=== PATIENT | female | born 1950 | race Caucasian/White ===

== ENCOUNTER 2024-09-14 08:55 | Outpatient (AMB) | payer MEDICARE, SELFPAY ==
--- NOTE | 2024-09-14 09:09 | A.OFFVIS_ITS ---
Vital Signs 3 09/14/24 09:16 Height 5 ft 3 in Weight 300 lb BMI 53.1 BP 175/77 H Blood Pressure Location Rt radial Position Sitting Pulse 58 Pulse Source Pulse Oximeter Pulse Oximetry (%) 95 Oxygen Delivery Method Room Air Intake Visit Reasons: Spondylosis w/o myelopathy or radiculopathy Intake Note: Pain today 5/10 Nurse Examiner Required: No Accompanied by: Self / Same As Patient Allergies Penicillins Allergy (Unknown, Verified 09/14/24 09:14) Unknown HPI HPI Spondylosis w/o myelopathy or radiculopathy: Details: Patient is a very pleasant 74 years old female with prior history of diabetes (A1C=7.5 ), morbid obesity (BMI=53.1), chronic low back pain, CKD stage 4, chronic fatigue and headaches, shortness of breath, JENNIFFER/BiPAP, arthritis, dizziness, presents today for potential lumbar medial branch RFA procedure. Denies any recent trauma, injury, falls. Patient was seen at [facility] and successfully underwent 2 positive diagnostic lumbar medial branch blocks in May and June 2024 with over 80% pain improvement for 24 hours each time. Patient reports functionality, mobility, and sleep have improved with diagnostic injections. Unfortunately she was unable to go forward with RFA procedure through [facility] facility as her BMI was too high per Anesthesiology at their Surgical center. She now presents for consideration of medial branch block RFA under sedation for chronic axial low back pain. Patient completed physical therapy in 05/15/24 with partial and temporary pain improvement. Denies any fever or chills, abdominal or groin pain, weakness, burning or tingling, radicular back pain, foot drop, bladder or bowel dysfunction or saddle anesthesia. Pain is rated at 7/10 with activities and movements and 5/10 with rest or sitting. Patient reports no difficulty with multiple procedures and surgeries under sedation except that she usually wakes with up with headache and nausea. Oswestry Low Back Pain Disability Score=19 (moderate disability) Location: Lower back pain, non-radiating Duration: Chronic pain >5 years Characteristics of symptom or complaint: Aching, sore, dull, heavy, hurting, sore Aggravating or associated factors: Movements, ADLs, ROM, standing, walking, cold weather changes Relieving factors: Sitting, rest, heat, Tylenol, rarely Ibuprofen (mostly avoid due to CKD) Treatment: PT, Chiropractor, [facility] Medical History (Updated 09/15/24 @ 22:38 by JULIO Cavanaugh) Chronic low back pain Severe obesity Diabetes Hypertension Surgical History (Updated 09/14/24 @ 09:28 by Tonia Henderson) Hx of joint replacement Review of Systems Const All systems reviewed & are unremarkable except as noted in HPI and below Denies body aches, Denies chills, Denies daytime sleepiness, Denies difficulty sleeping, Reports fatigue, Denies fever(s), Reports headache(s), Denies malaise, Denies night sweats and Denies weight loss ENT Reports headache(s) Card Denies dyspnea on exertion Resp Denies cough and Denies dyspnea on exertion Musc Reports as per HPI, Reports back pain, Denies myalgias, Reports arthralgias, Denies joint swelling, Reports limited range of motion, Denies numbness, Denies radiating pain into limb, Reports stiffness and Denies tingling Neuro Reports headache(s), Denies numbness and Denies tingling Psych Denies anxiety and Denies depression Endo Reports fatigue Physical Exam Vital Signs: Last Vital Signs Pulse 58 09/14/24 09:16 BP 175/77 H 09/14/24 09:16 Pulse Ox 95 09/14/24 09:16 Oxygen Delivery Method Room Air 09/14/24 09:16 BMI result Body Mass Index 53.1 General: Appears afebrile. Alert and oriented. Mood and affect appropriate. Follows and participates in conversation appropriately. Respiratory effort is unlabored. No cough. Able to transition from sit to stand unassisted. Ambulates with bilaterally normal heel strike and toe off. General: Yes no CVA tenderness Back/Spine/Pelvis Other: Limited thoracolumbar ROM due to pain. Lumbar extension reproduces moderate pain. Flexion is intact and reproduces mild pain. Positive facet loading bilaterally. Demonstrates 5/5 strength of quadriceps bilaterally as well as flexion/dorsiflexion of bilateral feet against resistance. 2+ pedal pulses bilaterally. Straight leg rise with dorsiflexion is negative bilaterally. Diminished patellar and achilles reflexes bilaterally. Limited Lionel?s, Pelvic compression and Stinchfield tests are negative bilaterally. No groin pain with I/E hip rotations. Valsalva maneuver negative. Back: no CVA tenderness Cervical Spine: cervical ROM normal, No Cervical spine scars present and No Cervical spine tenderness Thoracic/Lumbar Spine: thoracic and lumbar spine normal to inspection, No Thoracic/lumbar spine scar(s), Lasegue's sign negative, straight leg raise negative bilaterally, pain with thoraco-lumbar ROM, paraspinal muscle tenderness, No thoracic spinal tenderness and lumbar spinal tenderness (L3-S1) Sacroiliac joints: bilaterally nontender Assessment & Plan Assessment & Plan (1) Chronic low back pain: Code(s): M54.50 - Low back pain, unspecified; G89.29 - Other chronic pain Category: Medical (2) Spondylosis of lumbar region without myelopathy or radiculopathy: Code(s): M47.816 - Spondylosis without myelopathy or radiculopathy, lumbar region Category: Medical Plan Schedule bilateral L3-L4-L5 Medial Branch RFA with sedation and fluoroscopy. Expectations, risks and benefits were reviewed. Patient is aware she will be contacted to schedule this procedure. Most recent A1C=7.5. All questions were answered and the patient is in agreement of plan. Follow-up after injections and sooner as needed. Anticoagulation: Patient is not on anticoagulation Justification for interventional therapy: ? Patient with average pain > 6/10 ? Patient has exhausted conservative therapy, physical therapy, chiropractor therapy, injections, medication ? Bilateral diagnostic lumbar MBB x2 with >80% pain improvement for 24 hours at [facility] Coding Level of Care Code New Pt Level 4 (81989) Complex EM visit Add On G2211 Diagnoses Chronic low back pain M54.50; G89.29 Spondylosis of lumbar region without myelopathy or radiculopathy M47.816
[2024-09-14 09:16] VITALS: BP 175/77; PULSE 58; O2SAT 95; BMI 53.1
== END 2024-09-14 09:47 | disposition home or self-care (01) ==
PROVIDERS: PCP Family Medicine; Visit Provider Nurse Practitioner Family
DX: M54.50 Low back pain, unspecified (principal); G89.29 Other chronic pain; M47.816 Spondylosis without myelopathy or radiculopathy, lumbar region
CPT/HCPCS: 99204; G2211

== ENCOUNTER → 2024-09-14 08:55 | Outpatient (BNVA) | payer MEDICARE, SELFPAY | PROVIDERS: Visit Provider Nurse Practitioner Family | DX: M54.50 Low back pain, unspecified (principal); M47.816 Spondylosis without myelopathy or radiculopathy, lumbar region; E66.01 Morbid (severe) obesity due to excess calories; G89.29 Other chronic pain; Z68.43 Body mass index [BMI] 50.0-59.9, adult | CPT/HCPCS: 99202 ==

== ENCOUNTER 2025-01-08 06:15 | Outpatient (REF) | payer MEDICARE, SELFPAY ==
--- NOTE | ~2025-01-08 | FL_ITS ---
EXAMINATION: FL GUIDANCE ONLY HISTORY: M47.816 - Spondylosis without myelopathy or radiculopathy, lumbar region COMPARISON: None available. TECHNIQUE: Fluoroscopy time: 0.8 minutes. Cumulative Dose: 29.3 mGy. DAP: 0.329 mGym2 Images: 1. FINDINGS: A single fluoroscopic spot film of the lumbar spine demonstrate needles in the regions of the right L3-4, L4-5, and L5-S1 facet joints. FL/FL guidance in treatment room IMPRESSION: Fluoroscopy during procedure. Please see procedure report for additional information. Electronically signed by: Paul Ravi MD 01/08/2025 12:15 PM EDT
--- OUTSIDE RECORDS SUMMARY | 2025-01-08 06:19 | XMS_ITS | Encounter Summary ---
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; Rheumatoid arthritis of multiple sites with negative rheumatoid factor Social History Tobacco Use Types Packs/Day Years Used Date Smoking Tobacco: Former Cigarettes Q uit: 03/15/1989 Smokeless Tobacco: Never Alcohol Use Standard Drinks/Week Comments No 0 (1 standard drink = 0.6 oz pur e alcohol) Sex and Gender Information Value Date Recorded Sex Assigned at Not on file Gender Identity Female 03/13/2020 8:50 PM EDT Sexual Orientation Not on file documented as of this encounter Plan of Treatment Not on file documented as of this encounter Visit Diagnoses Diagnosis High risk medication use Encounter for long-term (current) use of other medications 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
--- OUTSIDE RECORDS SUMMARY | 2025-01-08 06:19 | XMS_ITS | Encounter Summary ---
Author Organization [facility] [place] [address] Care Team Providers Care Beam Sealer Name Role Phone Benito Saucedo MD Primary Care Provider [phone] Reason for Visit * Reason Onset Date Comments Medication Refill 05/30/2019 Encounter Details Date Type Department Care Team ([facility] st Contact Info) Description 05/30/2019 Refill Rheumatology at [address] [phone] Jose Walters MD [address] [place] [address] [place] [address] Degenerative disc disease, lumbar Social History Tobacco Use Types Packs/Day Years Used Date Smoking Tobacco: Former Cigarettes 1 10 0 03/15/1979 - 03/15/1989 Smokeless Tobacco: Never Alcohol Use Standard Drinks/Week Comments No 0 (1 standard drink = 0.6 oz pur e alcohol) Sex and Gender Information Value Date Recorded Sex Assigned at Not on file Gender Identity Female 03/13/2020 8:50 PM EDT Sexual Orientation Not on file documented as of this encounter Miscellaneous Notes * Telephone Encounter - Sarah Jimenez RN - 05/31/2019 4:43 PM EDT The med is all set but please see her comments about the swelling documented in this encounter Plan of Treatment Not on file documented as of this encounter Visit Diagnoses Diagnosis Degenerative disc disease, lumbar Degeneration of lumbar or lumbosacral intervertebral disc documented in this encounter Care Teams Beam Sealer Relationship Specialty Start Date End Date Benito Saucedo MD [address] [place] [address] PCP - General 03/14/20 documented as of this encounter
--- OUTSIDE RECORDS SUMMARY | 2025-01-08 06:19 | XMS_ITS | Clinical Summary ---
Author Organization [facility] Address [address] [place] [address] Care Team Providers Care Assault Amphibious Vehicle Officer Name Role Phone Unavailable Primary Care Provider Unavailabl e Social History Tobacco Use Types Packs/Day Years Used Date Smoking Tobacco: Never Assessed Sex and Gender Information Value Date Recorded Sex Assigned at Not on file Gender Identity Not on file Sexual Orientation Not on file Plan of Treatment Health Maintenance Due Date Last Done Comments Hepatitis C Virus Screening 1950 DTaP/Tdap/Td Vaccines (1 - Tdap) 02/26/1971 Mammogram 1992 Colonoscopy 02/26/1997 Pneumococcal Vaccines 50+ (1 of 1 - PCV) 02/26/2002 Zoster (Shingles) Vaccine (1 of 2) 02/26/2002 DXA Bone Density (Females,Ag es 65 and older) 02/26/2017 Influenza Vaccine 04/26/2024 COVID-19 Vaccine ( - 2023-2 5 season) 2024 RSV Vaccine 60 years and old er and Patients (1 - 1-dose 75+ series) 02/26/2027 Hepatitis B Vaccines Aged Out No long er eligible based on patient's age to complete this topic
--- OUTSIDE RECORDS SUMMARY | 2025-01-08 06:19 | XMS_ITS ---
Author Name [facility] Organization Unknown Encounters Encounter Type Encounter Reason Primary Diagnosis Location Date Ambulatory hyperkalemia [facility] 08/27/2021 Care Team Organization Name Specialty Phone Email Start Date End [facility] [employer] 08/29/2021 05/14/2024 [facility] [employer] 08/27/2021 08/27/2021
--- OUTSIDE RECORDS SUMMARY | 2025-01-08 06:19 | XMS_ITS | Clinical Summary ---
[place] [address] Care Team Providers Care Field Map Technician Name Role Phone Benito Saucedo MD Primary Care Provider [phone] Allergies Active Allergy Reactions Criticality Noted Date Comments Dominguez Inhibitors 02/13/2015 Other reaction(s): Cough Chromium 07/14/2021 Citalopram 07/14/2021 QT prolongation Copper 02/13/2015 Other reaction(s): Unknown Allergy tested positive Gold Au 198 02/13/2015 Other reaction(s): Unknown Allergy tested positive Gold Keratinate Other (See Comments) 02/13/2015 Allergy tested positive Penicillins Other (See Comments) 03/27/2014 Other reaction(s): Unknown Allergy tested positive Other reaction(s): other HAD A ALLERGY TEST AND WAS POSITIVE FOR PCN - UNKNOWN REACTION Medications Medication Sig Dispensed Refills Start Date End Date Status nystatin (MYCOSTATIN) CreamIndications:Fun gal infection Apply topically 2 times daily. 30 g 3 06/22/2018 Active ketoconazole (NIZORAL) 2 % Cream Apply topically daily. Apply to the affected area twice daily. 30 g 2 11/29/2018 Active pantoprazole (PROTONIX) 40 mg Tablet, Delayed Release (E.C.) Take 1 tablet by mouth daily. 90 tablet 3 04/17/2019 Active torsemide (Demadex) 20 mg Tablet Take 20 mg by mouth every other day. Active hydrALAZINE (Apresoline) 25 mg Tablet Take 25 mg by mouth 3 times daily. Active Saccharomyces boulardii (FLORASTOR) 250 mg Capsule Take 250 mg by mouth. Active allopurinoL (Zyloprim) 100 mg TabletIndications:Hi gh risk medication use,Acute gout due to renal impairment involving left foot,Rheumatoid arthritis of multiple sites with negative rheumatoid factor TAKE 2 TABLETS EVERY DAY 60 tablet 06/29/2021 Active Additional Information Patient taking differently: 100 mg Oral DAILY, Reported on 10/27/2022 augmented betamethasone dipropionate (Diprolene-AF) 0.05 % CreamIndications:Davonte ous stasis dermatitis of both lower extremities apply twice a day to affected areas of the legs for 2 weeks 150 g 1 07/09/2021 Active levothyroxine (Synthroid) 100 mcg Tablet Take 100 mcg by mouth daily. 10/26/2021 Active leflunomide (Arava) 20 mg Tablet 09/30/2021 Active NovoLOG Flexpen U-100 Insulin 100 unit/mL (3 mL) Insulin Pen 11/24/2021 Active gabapentin (Neurontin) 300 mg Capsule Take 300 mg by mouth 3 times daily. 12/08/2021 Active carvediloL (Coreg) 25 mg Tablet Take 25 mg by mouth 2 times daily (with meals). 10/15/2021 Active amLODIPine (Norvasc) 10 mg Tablet Take 10 mg by mouth daily. 11/02/2021 Active meclizine (Antivert) 25 mg tablet 07/20/2022 Active butalbital-acetamino lcjo-evzxnwcu-khlpjg e (Fioricet with Codeine) 18-476-66-30 mg capsule 09/21/2022 Active azithromycin (Zithromax) 500 mg tablet Take 500 mg by mouth as needed (for dental procedures). 09/21/2022 Active triamcinolone (Kenalog) 0.1 % CreamIndications:Ast eatotic eczema Apply to affected areas twice daily for two weeks, then take one week off and repeat as needed 453.6 g 3 12/26/2023 Active Insulin Tresiba FlexTouch U-100 100 unit/mL (3 mL) Insulin Pen See Instructions, 66u daily - replacing lantus, # 60 mL, 3 Refills, Maintenance, 12/23/23 9:40:00 EDT, [facility], Partial fill upon patient request if the prescription is for a schedule II opioid drug., 158, cm, 12/12/23 16:35:... 12/23/2023 Active cholecalciferoL (Vitamin D3) 1,000 unit tablet Take 1,000 Units by mouth daily. Active Active Problems Patient Care Coordination No te Formatting of this note migh t be different from the original. Acute pain contract Jake 05/25/2019 TFD Problem Noted Date Diagnosed Date Congestive heart failure 08/09/2022 Hypothyroidism 08/09/2022 Venous stasis dermatitis 08/09/2022 Chronic back pain 12/31/2021 Depressive disorder 12/31/2021 Chronic kidney disease, stage 4 (severe) 022 Osteoporosis 10/14/2021 Stage 3b chronic kidney disease 10/14/2021 Secondary hyperparathyroidism of renal origin Acute gout due to renal impairment 12/29/2019 Assessment & Plan (08/24/2020 10:25 AM EST): Increase allopurinol to 1 mg/day we will check uric acid and DMARD 1 panel in 4 weeks. Assessment & Plan (05/23/2020 10:41 AM EDT): Patient presents today with stable disease activity, uric acid level is slightly improved from previous values on current dose of allopurinol. We discussed and reviewed her most recent labs which were stable. Inflammatory markers continue to be elevated. Kidney functions are improved from previous value and uric acid is 10.5mg/dL. Goal uric acid is less than 6.0mg/dL. Plan to increase allopurinol to 100 mg daily. We will repeat blood work in 2 weeks. At that time pending those results we will hopefully be able to decrease prednisone to 7.5 mg daily and increase allopurinol by 50mg as per guidelines. Tracy verbalizes understanding and agrees with this plan of care. Plan for follow-up in [address] Walters or sooner if needed. Plan of care was discussed with colleague, Dr. Walters. Assessment & Plan (05/07/2020 8:31 AM EDT): His activity is worse, active and unstable. Requires treatment. Requires urate lowering therapy. At this point gout guidelines support the use of allopurinol. She can use allopurinol even at the creatinine of 1.8. Restart allopurinol 50 mg/day. Maintain prednisone at 7.5 mg/day. We will decrease his dose from 10 mg. We will also recheck labs in 2 weeks time: Uric acid, CBC, AST, ALT, creatinine. Goal uric acid is less than 6.0 mg/dL. With the new guidelines there is ability to use allopurinol even in renal failure. This can be used safely and effectively. I would maintain the combination of both. She needs prophylaxis as well. Assessment & Plan (12/29/2019 11:09 AM EDT): Will start low dose prednisone 5mg per day. Only option for prophylaxis. Start allopurinol after 3 days. 50mg daily. Will increase slowly to goal uric acid of 6.0mg/dL or less. Type 2 diabetes mellitus 10/23/2019 Hypertension 10/23/2019 Vitamin D deficiency 10/23/2019 Injury of kidney 10/12/2019 Chronic diastolic congestive heart failure 10/09 Overview (12/31/2021): See [facility] discharge notes from 10/05/19. Skin rash 08/07/2019 Assessment & Plan (08/07/2019 3:23 PM EST): I wonder whether this is more psoriasis versus an eczema. 2 different rashes one on the lower extremities one in the abdomen and the thighs. Set up for trial of corticosteroid topical and will set up for the venous ultrasound. Other spondylosis with radiculopathy, lumbar reg ion 06/27/2019 Degenerative disc disease, lumbar 05/25/2019 Assessment & Plan (05/25/2019 1:52 PM EDT): I do think at this point we need to evaluate the lumbar spine as well. There is clearly tenderness and pain and this will determine whether there is an inflammatory component to the hip and/or if this is really referred pain. Candidal intertrigo 10/09/2018 Assessment & Plan (11/27/2018 8:09 AM EST): I would try some Diflucan 150 mg once weekly for 4 weeks. This may give some ultimate relief. Side effects reviewed with the patient. Can continue topical treatments. Strep throat 08/24/2018 Assessment & Plan (08/24/2018 10:00 AM EST): Patient has been dealing with strep throat. She had at least 2 bouts over the last 6 months. She continues to have a sore throat. There is no exudate or erythema appreciated on exam although she does have some slightly swollen glands in the submandibular area. She was advised to follow-up with her primary care physician or urgent care regarding this. Edema of lower extremity 08/24/2018 Assessment & Plan (05/23/2020 10:34 AM EDT): Continues to have bilateral lower extremity edema, left greater than the right. No evidence of infection or cellulitis at this time. We did discuss signs and symptoms of infection patient verbalized understanding. Recommended short periods of activity to help with circulation. Per patient visiting nurses had difficult time obtaining pedal pulses, pulses were +2 bilaterally. Assessment & Plan (08/07/2019 3:23 PM EST): We will set up for a lower extremity venous ultrasound. I do know that she had edema which was worsened by Orencia. Ultimately, I need to make sure that there is not a different reason for this or a way that he can be treated. Would consider lymphedema clinic. Lets see what the ultrasound shows first. Does have venous insufficiency rash. Assessment & Plan (04/17/2019 11:39 AM EDT): Set up for Lasix to see if we can diurese initially. This hopefully will help and then we can move forward with seeing any edema improved while being off the Orencia. Assessment & Plan (08/24/2018 10:01 AM EST): 2-3+ bilateral lower extremity edema, pitting. She is advised to follow-up with primary care in regards to this. She is advised on good fluid intake and reducing salt intake as well. Fungal infection 06/22/2018 Assessment & Plan (08/24/2018 9:58 AM EST): Significantly improved. Assessment & Plan (06/22/2018 3:11 PM EDT): Fungal infection under pannus. Discussed nystatin cream twice per day. Use dry coffee filters between skin layers to reduce moisture. Send us a message in 1 week to let us know how you are doing. Excessive cerumen in both ear canals 06/22/2018 Assessment & Plan (06/22/2018 3:12 PM EDT): Warm water irrigations commended. If that does not help please call the office for further irrigation. Drug-induced diarrhea 04/25/2018 Other fatigue 04/25/2018 Overview (04/25/2018): Medication related from methotrexate Assessment & Plan (08/24/2018 10:01 AM EST): Likely worsened by the use of methotrexate. We will add leucovorin to her regimen to see if this helps combat the fatigue. She is advised to stay active as this may help as well. She does use her CPAP machine as directed. Assessment & Plan (04/25/2018 11:19 AM EDT): Related to methotrexate. We will increase the medication with folic acid to 2 mg per day and add leucovorin. Acute UTI (urinary tract infection) 04/25/2018 Assessment & Plan (04/25/2018 11:20 AM EDT): In terms of acute cystitis. We will set her up for urine analysis and culture. I will start nitrofurantoin. Will avoid Bactrim due to methotrexate use. The cultures and sensitivities will then determine if we stay on this medicine or Guerline therapy. Encounter for long-term (current) use of NSAIDs 03/03/2018 Assessment & Plan (04/17/2019 11:38 AM EDT): Discussed the side effects again. She is on aspirin. She is on Celebrex. Data really support limiting NSAIDs. She has a peptic ulcer. Fortunately she feels it is in her best interest to continue it and I agree. It is very risky and difficult but I think at this point her joint pain is significant. We have tried an alternative medication. She has not tolerated this. We discussed the risks and benefits. We will add Protonix daily and I think this will help and this is in line with guidelines for people who have difficulty stopping the medication, placed on a PPI especially with aspirin. There is a risk of bleed unfortunately. She is aware of the risks. Assessment & Plan (03/03/2018 3:26 PM EDT): We will switch to Celebrex. She will stop taking ibuprofen and Aleve. I think both of those are why her creatinine are elevated. She was using them in combination. NSAIDs informed consent: Side effect of all NSAIDs were reviewed in detail. The side effects such as increased risk of coronary artery disease and fatal stroke as well as gastric ulcer formation and renal insufficiency have been reviewed in detail. Other side effects include serious skin reactions, excessive bleeding, allergic reaction which can include rapid heartbeat. Other more common side effects include dizziness, drowsiness or lightheadedness. There is not one NSAID that is safer over the others. No literature article as shown which NSAID should be used. Most recent articles stated that diclofenac, celebrex, and naproxen were the most efficacious for arthritis. Ibuprofen was shown in a recent trial to increase bloodpressure for up to 48 hours post ingestion. Patients who have heart disease or prior ulcers or high blood pressure or decreased kidney function will be at risk for adverse outcomes. The risk and benefit ratio must be weighed with each patient individually. High risk medication use 11/07/2017 Overview (09/03/2019): Eye appt updated May 2019 Assessment & Plan (08/07/2019 3:22 PM EST): We will set for labs. So far she needs an eye exam every year as well. Assessment & Plan (04/17/2019 11:37 AM EDT): We will continue hydroxychloroquine and she will need regular eye exam monitoring. We will hold the Orencia for now. Assessment & Plan (11/27/2018 8:10 AM EST): I have reviewed all of the most recent lab results in [facility]. The most recent laboratory results were reviewed with the patient and are in the results section. The labs are overall stable and will continue to be monitored. Labs to be done every 3 months: Hemogram, AST, ALT, Creatinine, If on DMARD monotherapy or biologic combination. Labs from the above can be done every 6 months if on hydroxychloroquine monotherapy or biologic monotherapy. Labs will be done 2-4 weeks after any dosage adjustment on any medication. Quantiferon gold TB test to be done every 2 years while on biologic. The patient has been advised of the toxicities and the risks of the current medications. Close monitoring is required and adherence to the proper lab schedule is mandatory to monitor for these toxicities and to promote patient safety which is of primary concern. The patient understands the need for systematic and frequent lab monitoring for their safety with the current medications or any other further medications. Assessment & Plan (08/24/2018 9:59 AM EST): Overall labs have been stable. We are going to increase her methotrexate due to increased pain in the hands. She also has some synovitis appreciated in her hands as well. We are going to increase to 20 mg weekly. We will check her labs the third week of August to make sure everything is still stable. We will make any necessary adjustments based on our findings and her symptoms. Due to some mouth sores she will continue with a 3 mg of daily folic acid and make sure she is taking leucovorin 8 hours after her last dose of methotrexate. Hopefully this will help. She is still encouraged to continue to stay active and call with any acute issues. Assessment & Plan (06/05/2018 1:02 AM EDT): Overall labs have been stable. Plan will be to continue on this regimen with the exception of the methotrexate, we are going to increase that up to 6 tablets weekly. We will repeat the labs in about 3 weeks. Continue with use of leucovorin. Call with any acute or worsening side effects. Continue to use Celebrex with caution. Take with food. Understand that there are no safe NSAIDs. NSAIDS (aspirin, diclofenac, ibuprofen, indomethacin, meloxicam, Mobic, nabumetone, Relafen, naproxen, Aleve, piroxicam, Feldene, salsalate) Side effects can include but are not limited to palpitations, edema, heartburn, nausea, abdominal pain, diarrhea, constipation, flatulence, rash, sweating, headache, dizziness, lightheadedness, drowsiness, and increased thirst. Severe risks can include up to heart attacks, worsening congestive heart failure, worsening high blood pressure, serious skin reactions, liver and kidney failure, anemias and excessive bleeding and or even . Assessment & Plan (04/25/2018 11:19 AM EDT): She has repeat labs scheduled for 4 weeks. If they are better, will increase methotrexate up to 6 tablets per week. Will see my nurse practitioner in 4 weeks. Assessment & Plan (03/03/2018 3:24 PM EDT): She is already had a baseline chest x-ray without nodules. Labs to be done 4 weeks. DMARD 1. She will continue hydroxychloroquine for now. Assessment & Plan (12/22/2017 10:03 AM EDT): Labs have been stable. She her eye exams are up-to-date. We will continue to monitor regularly and make recommendations based on our findings. Shoulder impingement syndrome, right 09/06/2017 Assessment & Plan (08/24/2018 10:00 AM EST): Discussed icing techniques as well as stretching. Assessment & Plan (12/22/2017 10:04 AM EDT): Patient never did get an order for physical therapy. She is currently doing physical therapy for her back/knee. We will get that order in. She sees a physical therapist in [place]. Assessment & Plan (09/06/2017 9:14 AM EST): Proceed with corticosteroid injection. She was given exercises to start to do. Will then set up for x-ray today. See if this improves overall. Abnormal gallbladder ultrasound 07/11/2017 Abnormal ultrasound of liver 07/11/2017 Fatty liver 07/11/2017 Rheumatoid arthritis 06/28/2017 Assessment & Plan (08/24/2020 10:26 AM EST): We will discuss with her manager retail store to see what my options are in terms of treatment. TNF agents would not be warranted. Rinvoq could be an option because it does not have cardiovascular risk as potential adverse effect. Assessment & Plan (12/06/2019 4:41 PM EDT): At this point she does have active disease and is going be very difficult to decide back treatment options given that she is just recently had hospitalization for heart failure. Ultimately RA medications will be needed. We will first wait to see if she is going to have surgery for pacemaker. Hydroxychloroquine could then be reintroduced. There are several biologic medications and still can be used 1 of which would still be Orencia, other is Tocilizumab. She may also be a candidate for our new medication Upadacitinib (Rinvoq). First we will see how she is doing cardiovascular dooley and I will send this to her manager retail store. If there is a determination for surgery we will obviously hold on those medications. Other options may be that we will have to go with therapy such as conventional DMARDs such as combination methotrexate and hydroxychloroquine. She will require some form of treatment. I would avoid TNF agents because they can exacerbate heart failure. We will see how she does first cardiovascular dooley and can make a decision with her, primary care physician and manager retail store all about best options for treatment. Explained this in detail. Assessment & Plan (08/07/2019 3:22 PM EST): Continue Celebrex and hydroxychloroquine. No other medication options. Assessment & Plan (05/25/2019 1:50 PM EDT): Review of the x-ray of the hip I believe shows more osteoarthritis. She is scheduled for MRI next Tuesday. We will add an MRI of the lumbar spine as well. I think it would give me a better understanding if this is truly a bursitis or is this radiating pain from the hip versus the lumbar spine. She clearly has what I believe is a radicular component. This may also be a problem if there is inflammation. Will do an intramuscular Depo-Medrol injection followed by oral Medrol for a week. Add pain medicine [place] 5/325 1 tablet twice daily as needed for pain. Set up for a muscle relaxant Flexeril 5 mg twice daily. Assessment & Plan (04/17/2019 11:37 AM EDT): Her disease activity is actually better overall. We will continue Plaquenil but will have to stop the Orencia because I think it is causing edema. I will increase her Lasix to 80 mg/day for 5 days and then 40 mg/day for 5 days and then she will go back to her 20 mg/day dosage. Hopefully this may start some diuresis to improve some of the edema. I do think the edema is probably related to the Orencia. Assessment & Plan (12/05/2018 11:52 AM EDT): Overall disease activity worse and were going to stop methotrexate as it really has been worse for her with regards to how she felt. I think also the fact that she has had a synovitis and inflammation, we should proceed with biologic. We discussed use of her Orencia. I think it would be less risky for her in terms of infection, lymphoma and risk of solid malignancy. Orencia (Abatacept) Biologic. Used to treat Rheumatoid arthritis and juvenile idiopathic arthritis. Acute infusion reactions occurring approximately 9% of people. These side effects usually occur during or 1-2 hours after the infusion. These side effects could potentially include dizziness, headache, nausea, flushing, rash and itching, cough, wheezing, chest pain, low blood pressure, high blood pressure or shortness of breath. Following the infusion, other risks could potentially include headache, dizziness, heartburn, rash and back pain. Other serious risks include serious infections, COPD exacerbations, pneumonia, lymphoma. [facility] Biologic agents may include: Etanercept (Enbrel), Adalimumab (Humira), Infliximab (Remicade, Inflectra), Certolizumab (Cimzia, Cimzia lyophillized), Golimumab (Simponi, Simponi Aria), Abatacept (Orencia), Rituximab (Rituxan), Tocilizumab (Actemra), Aprimelast (Otezla), Ustekinumab (Stelara), Secukinumab (Cosentyx). All medications have side effects and these biologic agents are no exception. The more common side effects include: o Injection site reactions o Injection site pain and/or burning o Upper respiratory infections (viral, sinus) o Headache o Fatigue o Nausea and/or Vomiting Biologic medications can decrease the activity of your immune system. Therefore, you may have an increased chance of getting: Serious infections. Some infections could become serious. If you have an infection, even a cold or the flu, tell your provider before starting a biologic medicine. If you develop an infection while on a biologic medication, discontinue the biologic medication until the infection is completely resolved. Cancer. Many drugs that decreased the activity of the immune system can increase the risk of cancer. If you have had cancer, tell your provider before starting the biologic medicine. If you developed cancer while on the biologic medicine, discontinue your biologic until further instructions from your provider. Blood problems. In some patients your body may fail to produce enough of the cells that help your body fight infections or to help you to stop bleeding. If you develop a fever that does not go away, bruise or bleed very easily, discontinue your biologic medication and call your provider. Nervous system disorders. Signs that you could be experiencing a problem affecting your nervous system include: Numbness or tingling throughout your body, problems with your vision, weakness in her arms and/or legs, dizziness, new onset numbness in tingling in any extremity. Cardiovascular problems. Tell your provider if you have ever been treated for heart failure, have any symptoms of heart failure such as worsening lower extremity edema and shortness of breath, or if you are found to have worsening of the condition. If you are noted to have [place] Heart Failure Classification 3 or 4, tell your provider before starting the medication. BEFORE USING ANY BIOLOGIC MEDICATION, TELL YOUR PROVIDER: o If you have any kind of infection. o If you have a history of recurrent infections. o If you have ever had tuberculosis, have been treated for latent tuberculosis, or are in close contact with someone who has or has had tuberculosis. o If you travel frequently outside of the [place]. o If you travel frequently to endemic areas for fungal infections such as histoplasmosis and coccidioidomycosis. o If you have any new numbness or tingling or if you have a disease that affects your nervous system such as multiple sclerosis. o If you have been newly diagnosed or are being treated for congestive heart failure. o If you have been scheduled to have major surgery, minor surgery or planning to have surgery after starting the medication. o If you are , or planning to become and/or breast-feeding while you are on a biologic medication. We recommend using two effective forms of control while on a biologic medication. o If you have any immune system problems. o If you currently have or have had a previously cancer diagnosis. o If you know or suspected that you have HIV or AIDS. o If you know or suspect that you have hepatitis B or C. Your provider will recommend getting a complete blood count, tuberculosis test, HIV test, hepatitis B and C test, baseline chest x-ray and comprehensive metabolic panel prior to starting any of these medications. There is a protocol in place for these medications. Other labs or studies may be needed prior to starting medications. Most insurance companies require a prior authorization for these medicines to be approved. The pharmacy that you will use will be determined based on your insurance. Any copayments will be determined based on your insurance, financial analysis consultant if applicable or pharmacy industry copayment cards if applicable. This prior authorization approval process takes a minimum of 1-2 weeks. These times can vary and we reserve the right to change without notice. There are specific processes and procedures that must be followed in order for these medications to be approved safely. Any procedures for administration of the medication is in place for your safety and must be followed strictly and adherently. Immunizations are recommended for all patients on Biologics. These include annual influenza vaccination, applicable pneumonia vaccination and we recommend prior shingles vaccination before biologic medications are started. This is according to the Center for Disease Control guidelines on immunocompromised patients and biologic medications. DO NOT: o Use a biologic medication if you have had an allergic reaction to it. o Take your biologic medication if you have an infection. o Receive any live virus vaccinations. o Stop your biologic medication without first checking with your provider. o Become unless you have discussed this with your provider because there can be serious consequences to the patient and the unborn fetus. HOW TO USE YOUR BIOLOGIC MEDICATION: o You will receive training from our office about how to administer your injection, which clinic to report to for administration of the medication as well as any alternative injection sites. o You will be instructed to use the medication as prescribed by your provider. Do not miss any doses. If you miss a dose, please contact a provider to see when you take the next dose. o Keep the medication refrigerated until ready for use. o You will be instructed to keep the medicine at room temperature prior to use if this is applicable. o Keep all follow-up appointments. o Continue to follow all scheduled lab monitoring protocols. TO ENSURE TIMELY RECEIPT OF YOUR BIOLOGIC: o If either your insurance company or pharmacy changes, you need to contact the office as soon as possible. o NO specialty pharmacy will deliver the biologic medication without a delivery confirmation. This means that the pharmacy will require to speak to the patient directly before they send the medication to the patient. o If you receiving any patient assistance from any of the pharmacologic companies or from patient assistance, it is the patient? s responsibility to remain current with this company and the foundation board the patient assistance program in order to continue treatment without paying out of pocket. o Your provider has to right to refuse refills to any patient that is not current with any of these policies or has not completed the required blood work or has failed to keep follow-up visits. This is subject to change without notice if deemed necessary for patient safety. Assessment & Plan (11/27/2018 8:10 AM EST): I think at this point she can probably still maintain hydroxychloroquine and methotrexate. Looks like a significant fungal rash. Already being treated also with a antibiotic. Assessment & Plan (08/24/2018 10:00 AM EST): Patient does have some increased discomfort in her hands as well as active synovitis. We are going to increase her methotrexate to 20 mg weekly with 3 mg of daily folic acid. She is encouraged to continue to stay active and we will check her labs shortly after the increase to make sure she is tolerating the medication well. Assessment & Plan (06/05/2018 1:00 AM EDT): Improving symptoms while on methotrexate. Let us go up to 6 tablets per week. This repeat the labs in about 3 weeks to make sure that we are tolerating it well. Continue to stay active. Continue with the leucovorin 8 hours after the last dose of methotrexate. Call with any acute issues. Assessment & Plan (04/25/2018 11:19 AM EDT): Improved control. She did have some mild elevations in her labs including creatinine and a decrease in her hemoglobin and hematocrit. We will need to see how she does with this. We will keep her on methotrexate 4 tablets once weekly. Increase folic acid to 2 mg per day. Add leucovorin once weekly. Hopefully this will help with the GI side effect. Hopefully will help with the fatigue. Assessment & Plan (03/03/2018 3:24 PM EDT): She transition her rheumatoid arthritis. Continue hydroxychloroquine. We discussed starting methotrexate. Start methotrexate 4 tablets once weekly which will be a total of 10 mg once weekly with daily folic acid. Methotrexate (Rheumatrex): Medication is used to treat rheumatoid arthritis, psoriasis, psoriatic arthritis, systemic lupus erythematosus, myositis, connective tissue disease, many other rheumatologic diseases for which it may be off label use. There are black box warnings which include even with appropriate use that for her disabling psoriasis or rheumatoid arthritis or other rheumatic diseases that are not responsive to other treatment, there is been deaths that are reported in these conditions. Closely monitoring of bone marrow, liver, lung and kidney toxicities is important. There are many new studies stating that the concomitant use of NSAIDs for rheumatoid arthritis, certainly antibiotics for short-term use and proton pump inhibitors are able to be used for the low dose methotrexate. This may calm up in your treatment if you are prescribed with these medications by any of your other providers or your mining consultant. Side effects discussed at length to include but not limited to liver function abnormalities, WBC changes, lung fibrosis, oral ulcers, hair loss and flu like syndrome. Acute lung toxicity and acute toxicity causing decreased blood counts and pancytopenia. Risk of lymphoma is increased with jail use. Patient should limit, and preferably, abstain from the use of alcohol. Informed consent was obtained and signed. Patient is urged to read all paperwork that comes with the medication as well as any provided information and is urged to call our office with any questions or concerns. Assessment & Plan (12/22/2017 10:05 AM EDT): No obvious synovitis on exam although body habitus does make it slightly difficult to assess. Patient reports that she is getting good relief with use of hydroxychloroquine and Aleve. Plan at this time will be to continue on these for good relief. Assessment & Plan (09/06/2017 9:13 AM EST): Continue hydroxychloroquine for now. Her bone scan shows degenerative arthritis in the shoulder and in the lumbar spine. We will proceed with x-ray of the right shoulder. Osteoarthritis of knee 05/20/2017 ESR raised 05/20/2017 CRP elevated 05/20/2017 Alkaline phosphatase elevation 05/05/2017 Arthralgia of multiple joints 05/05/2017 Sedimentation rate elevation 03/25/2017 Assessment & Plan (04/25/2018 11:19 AM EDT): I think we will see an improvement in these numbers. She is starting to feel better overall. Assessment & Plan (09/06/2017 9:14 AM EST): The inflammation will improve gradually. Tarsal tunnel syndrome, left 03/09/2017 Obstructive sleep apnea syndrome 08/23/2016 Hyperlipidemia 07/29/2016 Osteoarthrosis 07/22/2016 Assessment & Plan (06/05/2018 1:01 AM EDT): Continue stay active. Maintain healthy weight. Tylenol as previously discussed. Assessment & Plan (12/22/2017 10:02 AM EDT): Pt has arthritis in multiple sites per imaging. She is getting some relief with the use of HCQ and Aleve BID. She continues to have discomfort in her right shoulder and lower back and left knee. She is currently doing PT for her knee. She never started PT for the shoulder. For now, I think we are going to continue on the HCQ and aleve, and incorporate tylenol up to 3000mg per day in divided doses. Her renal function was stable the last time we checked her numbers. Her eye exam is up to date as per the recommendations while she is on hydroxychloroquine. We will continue monitoring labs and put in an order for physical therapy for the shoulder as well. She is advised to continue to try and stay active. Maintaining a healthy weight is also long and would help with some of the joint symptoms as well. Allergy to metal 12/11/2015 Lipoma 06/26/2013 Morbid obesity Arthritis Encounters Date Type Department Care Team Description 12/19/2024 9:40 AM EDT Office Visit [place] [address] Barrett Jay MD Sensorineural hearing loss (SNHL) of both ears; Tympanic membrane perforation, left; Tympanic membrane retraction, right; H/O Meniere's disease 12/19/2024 9:00 AM EDT Office Visit Audiology at [address] [id number] Yeimi Park, PhD Sensorineural hearing loss, bilateral 12/19/2024 Travel 12/18/2024 Travel from Last 3 Months Family History Medical History Relation Comments Diabetes Brother Heart Failure Father Diabetes Maternal Aunt Rheumatoid Arthritis Maternal Grandmother Diabetes Mother Heart Failure Mother Diabetes Other Scoliosis Other Cancer Paternal Grandmother Breast Canc er Cancer Sister Uterine Cancer Relation Status Comments Brother Father Maternal Aunt Maternal Grandmother Mother Other Alive Paternal Grandmother Sister Social History Tobacco Use Types Packs/Day Years Used Date Smoking Tobacco: Former Cigarettes Q uit: 03/15/1989 Smokeless Tobacco: Never Tobacco Cessation:Counseling Given: No Alcohol Use Standard Drinks/Week Comments No 0 (1 standard drink = 0.6 oz pur e alcohol) Sex and Gender Information Value Date Recorded Sex Assigned at Not on file Gender Identity Female 03/13/2020 8:50 PM EDT Sexual Orientation Not on file Last Filed Vital Signs Vital Sign Reading Time Taken Comments Blood Pressure 128/58 03/30/2024 10:28 AM EDT Pulse 57 03/30/2024 10:28 AM EDT Temperature 36.8 ??C (98.2 ??F) 05/22/2020 8:28 PM ED T Respiratory Rate 15 10/19/2019 2:18 PM EST Oxygen Saturation 93% 03/30/2024 10:28 AM EDT Inhaled Oxygen Concentration - - Weight 133.8 kg (295 lb) 12/19/2024 9:41 AM EDT Height 157.5 cm (5' 2 ) 12/19/2024 9:41 AM EDT Body Mass Index 53.96 12/19/2024 9:41 AM EDT Plan of Treatment Health Maintenance Due Date Last Done Comments CT Colonography 1950 FIT DNA 1950 FIT 1950 Sigmoidoscopy 1950 DM Hemoglobin A1c 02/26/1962 DM Opthalmology Exam 02/26/1962 DM Urine Microalbumin yearly 02/26/1962 Hepatitis C Screening 02/26/1970 Lipid Screening 02/26/1970 Pneumoccocal Vaccine: 50+ (1 of 2 - PCV) 02/26/1971 Tetanus/Diphtheria/Pertussis Vaccines (1 - Tdap) 02/26/1971 Breast Cancer Share Decision Needed 1992 Breast Cancer screening 1992 Zoster vaccine (1 of 2) 02/26/2002 RSV Vaccine (1 - Risk 60-74 years 1-dose series) 2012 DM Creatinine yearly 03/20/2022 03/20/2021, 10/19/2019, 10/18/2019, Additional history exists Colonoscopy 03/26/2024 03/26/2019, 03/26/2019 Colorectal Cancer Screening 03/26/2024 Covid-19 Vaccine (6 - 2023-2 5 season) 2024 07/11/2023, 01/21/2022, 07/28/2021, Additional history exists Influenza (Flu) vaccine (1 o f 1 - Influenza standard series) 05/27/2024 Sigmoidoscopy (10 year) with FIT yearly 03/26/2029 03/26/2019, 03/26/2019 Bone Density Scan 02/09/2034 02/09/2019 Diabetes Screening (HgbA1C o r Glucose) Discontinued 10/19/2019, 10/18/2019, 10/17/2019, Additional history exists Procedures Procedure Name Priority Date/Time Associated Diagnosis Comments COMPREHENSIVE HEARING TEST Routine 12/19/2024 9:08 AM EDT HC VENIPUNCTURE Routine 03/20/2021 11:04 AM EDT Asymmetrical sensorineural hearing loss BASIC METABOLIC PANEL Routine 10/19/2019 4:55 AM EST COLONOSCOPY Routine 03/26/2019 6:43 AM EDT DXA CENTRAL SPINE, HIP, AND/OR WHOLE BODY (GENERIC) Routine 02/09/2019 2:22 PM EDT from Last 3 Months or Most Recently Relevant to Health Maintenance Results * Comprehensive hearing test (12/19/2024 9:08 AM EDT) 12/19/2024 9:08 AM EDT Narrative AUDBASE COMP - 12/19/2024 9:08 AM EDT Follow-up with Dr. Jay Audiology services in conjunction with medical management. Procedure Note Unknown - 12/19/2024 Follow-up with Dr. Jay Audiology services in conjunction with medical management. Yeimi Park PhD AUDIOLOGY SERVICES ORDERABLES AUDBASE COMP * (ABNORMAL) Creatinine (03/20/2021 11:04 AM EDT) Creatinine 2.06(H) 0.70 - 1.20 mg/dL [facility] Est Glomerular Filtration Rate 24(L) >=60 mL/min/1. 73 m?? [facility] Comment: This patient? s estimated glomerular filtration rate (eGFR) is between 24 mL/min/1.73 m2 (patients with less muscle mass) and 28 mL/min/1.73 m2 (patients with more muscle mass) as determined by the CKD-EPI equation. Assessment of eGFR is not appropriate when creatinine concentrations are rapidly changing. For clinical decisions where creatinine clearance will affect therapy, a 24-hour urine creatinine clearance may be advised. Assignment of CKD stage 1 - 5 for patients with an eGFR near the transition point between stages may be based on clinical assessment of muscle mass and symptoms in addition to eGFR. Blood 03/20/2021 11:0 4 AM EDT 03/20/2021 11:12 AM EDT Narrative Resulting Agency Comment Spec In Lab Barrett Jay MD CHEMISTRY ORDERABLES Performing Organization Address City/[facility]/ZIP Co de Phone Number [facility] [place] [address] * (ABNORMAL) Basic Metabolic Panel (non-fasting) (10/19/2019 4:55 AM EST) Glucose 169 65 - 199 mg/dL [facility] Comment:Diabetes: >=200 mg/d L plus symptoms Blood Urea Nitrogen 77(H) 8 - 18 mg/dL [facility] Creatinine 2.88(H) 0.70 - 1.20 mg/dL [facility] Sodium 139 135 - 145 mmol/L [facility] Potassium 3.3(L) 3.5 - 5.0 mmol/L [facility] Comment: Please note: ??Patients with WBC >100,000 may have falsely elevated Potassium levels. ??For accurate Potassium quantification in these patients send serum separator tube (gold top) for subsequent determinations. ??Contact the Clinical Chemistry Laboratory if there are any questions. Chloride 90(L) 98 - 107 mmol/L [facility] Carbon Dioxide 30 22 - 31 mmol/L [facility] Anion Gap 19(H) 5 - 15 mmol/L [facility] Calcium 10.2 8.5 - 10.5 mg/dL [facility] Est Glomerular Filtration Rate 16(L) >=60 mL/min/1. 73 m?? [facility] Comment: The eGFR was calculated using the CKD-EPI equation. As with all creatinine based estimates of kidney function, eGFR values calculated with the CKD-EPI equation are not accurate in patients with acute kidney failure, extremes of body mass or the acutely ill. [email or web address] eGFR 19(L) >=60 mL/min/1. 73 m?? [facility] Comment: The eGFR was calculated using the CKD-EPI equation. As with all creatinine based estimates of kidney function, eGFR values calculated with the CKD-EPI equation are not accurate in patients with acute kidney failure, extremes of body mass or the acutely ill. [email or web address] Blood specimen (specimen) 10/19/2019 4:55 AM EST 10/19/2019 5:40 AM EST Narrative Resulting Agency Comment Spec In Lab Dara Carreon MD CHEMISTRY ORDERABLES [facility] [address] [place] [address] * COLONOSCOPY (03/26/2019 6:43 AM EDT) COLONOSCOPY Patient Name: Tiffanie Stern Procedure Date: 03/26/2019 6:43 AM ?Attending MD: Lucho Ohara MD Date of : 1950 ?Order #: [id number] Age: 69 ?Instrument Name: [id number] Procedure: ? Colonoscopy Indications: ? Iron deficiency anemia Providers: ? Lucho Ohara MD, [place] ? Ama Krishna MD: ? Medicines: ? Monitored Anesthesia Care Complications: ? No immediate complications. Procedure: ? Pre-Anesthesia Assessment: ? - Prior to the procedure, a History ? and Physical was performed, and ? patient medications, allergies and ? sensitivities were reviewed. The ? patient's tolerance of previous ? anesthesia was reviewed. ? The procedure, indications, benefits, ? risks and alternatives were explained ? to the patient. Specifically ? discussed were potential ? complications including, but not ? limited to, bleeding, perforation, ? infection, missing a cancer, and ? adverse medication reactions. The ? patient was placed in the left ? lateral decubitus position, and a ? digital rectal exam was performed. ? The Colonoscope was inserted in the ? anus and under direct visualization, ? advanced to the cecum, identified by ? appendiceal orifice and ileocecal ? valve. Careful inspection was made as ? the colonoscope was withdrawn. The ? colonoscopy was performed without ? difficulty. The patient tolerated the ? procedure well. The quality of the ? bowel preparation was good. ? Scope Withdrawal Time: 0 hours 10 minutes 20 seconds Findings: ? The perianal and digital rectal examinations were ? normal. ? Two sessile polyps were found in the transverse ? colon. The polyps were 2 to 3 mm in size. These ? polyps were removed with a cold biopsy forceps. ? Resection and retrieval were complete. ? Multiple small-mouthed diverticula were found in the ? entire colon. ? Internal hemorrhoids were found during retroflexion. ? The hemorrhoids were small. ? The exam was otherwise without abnormality. ? Impression: ?- Two 2 to 3 mm polyps in the ? transverse colon, removed with a cold ? biopsy forceps. Resected and ? retrieved. ? - Diverticulosis in the entire ? examined colon. ? - Internal hemorrhoids. ? - The examination was otherwise ? normal. Recommendation: ?- Discharge patient to home. ? - High fiber diet. ? - Continue present medications. ? - Await pathology results. ? - Repeat colonoscopy in 5 years for ? surveillance based on pathology ? results. ? Procedure Code(s): ?? --- Professional --- ? 25950, Colonoscopy, flexible; with ? biopsy, single or multiple Diagnosis Code(s): ?? --- Professional --- ? D12.3, Benign neoplasm of transverse ? colon (hepatic flexure or splenic ? flexure) ? K64.8, Other hemorrhoids ? D50.9, Iron deficiency anemia, ? unspecified ? K57.30, Diverticulosis of large ? intestine without perforation or ? abscess without bleeding ? --- Technical --- ? D12.3, Benign neoplasm of transverse ? colon (hepatic flexure or splenic ? flexure) ? K64.8, Other hemorrhoids ? D50.9, Iron deficiency anemia, ? unspecified ? K57.30, Diverticulosis of large ? intestine without perforation or ? abscess without bleeding CPT copyright 2017 [employer]. All rights reserved. The codes documented in this report are preliminary and upon mobile ui developer review may be revised to meet current compliance requirements. Lucho Ohara MD ___ Lucho Ohara MD 03/26/2019 8:13:36 AM This report has been signed electronically. Number of Addenda: 0 PROVATION 03/26/2019 6:43 AM EDT Unknown GENERAL SURGICAL ORD ERABLES PROVATION * DXA Central-Spine, Hip, And/Or Whole Body (Generic) (02/09/2019 2:22 PM EDT) Anatomical Region Laterality Modality C-spine, Hip N/A Radiographic Michelle ging 02/09/2019 2:22 PM EDT Impressions 02/09/2019 2:37 PM EDT Minimal osteoporosis category as measured at the left hip femoral neck, normal bone mineral density measurements elsewhere in the left hip and lumbar spine. Compared to 12/22/2006, the total left hip bone mineral density has increased by 3.3%. The lumbar spine bone mineral density has decreased by 0.8%. The ten year fracture probability by FRAX is 0.8% for hip fractures and 8.9% for all major osteoporotic fractures. NOTE: FRAX calculations are typically made for untreated postmenopausal women or men, age 50 or older, with T-score between -1.0 and -2.5, with no past fractures of lumbar spine or hip. We are providing this calculation for all patients for your use with the proviso that it be considered in conjunction with the patient's total clinical situation, including patient preferences, comorbidities, present and past drug use, and risk factors that may not be captured by the FRAX model (e.g., without exclusion, frailty, frequent falls, vitamin D deficiency, increased bone turnover, and rapidity of change in bone density). National Osteoporosis Foundation recommends FDA-approved medical therapies be considered in postmenopausal women and men, age 50 years or greater, with: (1) a history of hip OR vertebral fracture, (2) T-score of -2.5 (or less) at the spine OR total hip, or (3) ten year fracture probability by FRAX of 3% (or more) for hip fractures OR 20% (or more) for major osteoporotic fractures. Thank you for letting us participate in the care of this patient. For questions regarding this report, please contact the number below. ? Narrative 02/09/2019 2:37 PM EDT EXAMINATION: BD Procedure (DEXA) CLINICAL HISTORY: screening for osteoporosis;Z13.820 Encounter for screening for osteoporosis TECHNIQUE: Scans were acquired at the lumbar spine, left hip. COMPARISON: 12/22/2006 FINDINGS: COMPARISON: 12/22/2006 DISCUSSION: Bone density scanning of the left hip and lumbar spine was performed with the [employer] Discovery C DEXA Scanner. At the left hip the total bone mineral density is 1.158 g/sq cm with the T-score of 1.8. For purposes of FRAX calculation only, at the left femoral neck the bone mineral density is 0.730 g/sq cm with the T-score of -1.1. In the lumbar spine at L1 through L4 the total bone mineral density is 1.049 g/sq cm. The T-score is 0.0. Procedure Note Chun Vergara MD - 02/09/2019 EXAMINATION: BD Procedure (DEXA) CLINICAL HISTORY: screening for osteoporosis;Z13.820 Encounter forscreening for osteoporosis TECHNIQUE: Scans were acquired at the lumbar spine, left hip. COMPARISON: 12/22/2006 FINDINGS: COMPARISON: 12/22/2006 DISCUSSION: Bone density scanning of the left hip and lumbar spine wasperformed with the [employer] Discovery C DEXA Scanner. At the left hip the totalbone mineral density is 1.158 g/sq cm with the T-score of 1.8. For purposes ofFRAX calculation only, at the left femoral neck the bone mineral density is0.730 g/sq cm with the T-score of -1.1. In the lumbar spine at L1 through L4 thetotal bone mineral density is 1.049 g/sq cm. The T-score is 0.0. IMPRESSION Minimal osteoporosis category as measured at the left hip femoral neck, normal bone mineral density measurements elsewhere in the left hipand lumbar spine. Compared to 12/22/2006, the total left hip bone mineral density hasincreased by 3.3%. The lumbar spine bone mineral density has decreased by 0.8%. The ten year fracture probability by FRAX is 0.8% for hip fractures and8.9% for all major osteoporotic fractures. NOTE: FRAX calculations are typically made for untreated postmenopausalwomen or men, age 50 or older, with T-score between -1.0 and -2.5, with no pastfractures of lumbar spine or hip. We are providing this calculation for all patientsfor your use with the proviso that it be considered in conjunction with the patient's total clinical situation, including patient preferences, comorbidities, present and past drug use, and risk factors that may notbe captured by the FRAX model (e.g., without exclusion, frailty, frequentfalls, vitamin D deficiency, increased bone turnover, and rapidity of change inbone density). National Osteoporosis Foundation recommends FDA-approved medical therapiesbe considered in postmenopausal women and men, age 50 years or greater, with:(1) a history of hip OR vertebral fracture, (2) T-score of -2.5 (or less) at thespine OR total hip, or (3) ten year fracture probability by FRAX of 3% (or more)for hip fractures OR 20% (or more) for major osteoporotic fractures. Thank you for letting us participate in the care of this patient. Forquestions regarding this report, please contact the number below. Neto [place] DEXA ORDERABLE S from Last 3 Months or Most Recently Relevant to Health Maintenance Advance Directives Documents on File Type Date Recorded Patient Gamma Operator Expl anation Advance Directives and Livin g Will 11/24/2010 4:05 PM * Full Code (Latest Code Status on File) Date Activated Date Inactivated Comments 10/12/2019 4:08 PM 10/19/2019 5:45 PM Question Answer Comments Does patient have capacity to make decision: Yes Care Teams Field Map Technician Relationship Specialty Start Date End Date Benito Saucedo MD [address] [place] [id number] PCP - General 03/14/20
--- OUTSIDE RECORDS SUMMARY | 2025-01-08 06:19 | XMS_ITS | Encounter Summary ---
Author Organization [facility], Address [address] [place] [address] Phone Care Team Providers Care Lockstitch Lining Maker Name Role Phone Benito Saucedo MD Primary Care Provider [phone] Encounter Details Date Type Department Care Team (Late st Contact Info) Description 11/28/2024 Orders Only [facility] [address] [place] [phone] Garima Rodriguez, [address] [place] [address] Stage 3b chronic kidney disease (HCC); Type 2 diabetes mellitus with diabetic chronic kidney disease (HCC) Social History Tobacco Use Types Packs/Day Years Used Date Smoking Tobacco: Never Smokeless Tobacco: Never Alcohol Use Standard Drinks/Week Comments Not Currently 0 (1 standard drink = 0.6 oz pur e alcohol) Comments Unknown Sex and Gender Information Value Date Recorded Sex Assigned at Not on file Legal Sex Female 4:33 PM EST Gender Identity Not on file Sexual Orientation Not on file documented as of this encounter Plan of Treatment Upcoming Encounters Date Type Department Care Team (Late st Contact Info) Description 06/13/2025 12:00 PM EDT Office Visit [facility] [address] [place] [phone] RodriguezGarima, DO [address] [facility] [place] [address] documented as of this encounter Procedures Procedure Name Priority Date/Time Associated Diagnosis Comments URINE ALBUMIN / CREATININE RATIO Routine 12/10/2024 9:44 AM EDT Stage 3b chronic kidney disease (HCC) Type 2 diabetes mellitus with diabetic chronic kidney disease (HCC) VITAMIN D 25 HYDROXY Routine 12/10/2024 9:44 AM EDT Stage 3b chronic kidney disease (HCC) CBC Routine 12/10/2024 9:44 AM EDT Stage 3b chronic kidney disease (HCC) PTH, INTACT Routine 12/10/2024 9:44 AM EDT Stage 3b chronic kidney disease (HCC) RENAL FUNCTION PANEL Routine 12/10/2024 9:44 AM EDT Stage 3b chronic kidney disease (HCC) documented in this encounter Results * (ABNORMAL) Renal function panel (12/10/2024 9:44 AM EDT) Glucose 171(H) 70 - 99 mg/dL [facility] BUN 25 8 - 27 mg/dL [facility] Creatinine 1.62(H) 0.57 - 1.00 mg/dL [facility] eGFR CKD-EPI CR 2020 34(L) >59 mL/min/1.7 3 [facility] BUN/Creatinine Ratio 15 12 - 28 [facility] Sodium 145(H) 134 - 144 mmol/L [facility] Potassium 3.8 3.5 - 5.2 mmol/L [facility] Chloride 105 96 - 106 mmol/L [facility] Bicarbonate (CO2) 21 20 - 29 mmol/L [facility] Calcium 9.1 8.7 - 10.3 mg/dL [facility] Albumin 3.9 3.8 - 4.8 g/dL [facility] Phosphorus 2.7(L) 3.0 - 4.3 mg/dL [facility] Blood (Blood, Venous) 12/10/2024 9:44 AM EDT 12/10/2024 us Garima Rodriguez DO LAB BLOOD ORDERABLES Final Re sult [facility] [address] [place] [address] * Vitamin D 25 hydroxy (12/10/2024 9:44 AM EDT) Vitamin D, 25-OH, Total 33.4 30.0 - 100.0 ng/mL [facility] Comment: Vitamin D deficiency has been defined by the [place] of Medicine and an Endocrine Society practice guideline as a level of serum 25-OH vitamin D less than 20 ng/mL (1,2). The Endocrine Society went on to further define vitamin D insufficiency as a level between 21 and 29 ng/mL (2). 1. IOM ([place] of Medicine). 2010. Dietary reference ?? intakes for calcium and D. [place]: The ?? National AcademOutbox Press. 2. Santiago MF, Donovan [place], Arik CARIAS, et al. ?? Evaluation, treatment, and prevention of vitamin D ?? deficiency: an Endocrine Society clinical practice ?? guideline. JCEM. 2011 Mar; 96(7):1911-30. Blood (Blood, Venous) 12/10/2024 9:44 AM EDT 12/10/2024 us Garima Rodriguez DO LAB BLOOD ORDERABLES Final Re sult Performing Organization Address [facility] de Phone Number [facility] [address] [place] [address] * Urine Albumin / Creatinine Ratio (12/10/2024 9:44 AM EDT) Creatinine, Ur 129.9 Not Estab. mg/dL [facility] Albumin, Urine 15.9 Not Estab. ug/mL [facility] Albumin/Creatin ine Ratio 12 0 - 29 mg/g creat [facility] Comment: ? Normal: ?0 - ??29 ? Moderately increased: 30 - 300 ? Severely increased: ? >300 Urine (Urine, Clean Catch) 12/10/2024 9:44 AM EDT 12/10/2024 us Garima Rodriguez DO LAB URINE ORDERABLES Final Re sult Performing Organization Address [facility] de Phone Number [facility] [address] [place] [address] * (ABNORMAL) PTH, intact (12/10/2024 9:44 AM EDT) PTH 210(H) 15 - 65 pg/mL [facility] Blood (Blood, Venous) 12/10/2024 9:44 AM EDT 12/10/2024 us Garima Rodriguez DO LAB BLOOD ORDERABLES Final Re sult Performing Organization Address [facility] de Phone Number [facility] [address] [place] [address] * CBC (12/10/2024 9:44 AM EDT) WBC 8.1 3.4 - 10.8 x10E3/uL [facility] RBC 4.50 3.77 - 5.28 x10E6/uL [facility] Hemoglobin 13.4 11.1 - 15.9 g/dL [facility] Hematocrit 39.9 34.0 - 46.6 % [facility] MCV 89 79 - 97 fL [facility] MCH 29.8 26.6 - 33.0 pg [facility] MCHC 33.6 31.5 - 35.7 g/dL [facility] RDW 13.8 11.7 - 15.4 % [facility] Platelets 230 150 - 450 x10E3/uL [facility] Blood (Blood, Venous) 12/10/2024 9:44 AM EDT 12/10/2024 us Garima Rodriguez DO LAB BLOOD ORDERABLES Final Re sult [facility] [address] [place] [address] documented in this encounter Visit Diagnoses Diagnosis Stage 3b chronic kidney disease (HCC) Type 2 diabetes mellitus with diabetic chronic kidney disease (HCC) documented in this encounter Care Teams Lockstitch Lining Maker Relationship Specialty Start Date End Date Benito Saucedo MD [address] [place] [id number] PCP - General Family Medicine 11/18/20 documented as of this encounter
--- OUTSIDE RECORDS SUMMARY | 2025-01-08 06:19 | XMS_ITS | Encounter Summary ---
Author Organization [facility] [address] Care Team Providers Care Starting Sheet Tank Operator Name Role Phone Benito Saucedo MD Primary Care Provider [phone] Reason for Visit * Reason Onset Date Comments Medication Refill 06/12/2019 Encounter Details Date Type Department Care Team ([facility] st Contact Info) Description 06/12/2019 Refill Rheumatology at [address] [phone] Jose Walters MD [address] [place] [address] [place] [address] Degenerative disc disease, lumbar Social History Tobacco [...] disc documented in this encounter Care Teams Starting Sheet Tank Operator Relationship Specialty Start Date End Date Benito Saucedo MD [address] [place] [phone] PCP - General 03/14/20 documented as of this encounter
--- OUTSIDE RECORDS SUMMARY | 2025-01-08 06:19 | XMS_ITS | Encounter Summary ---
Author Organization [facility], Address [address] [place] [address] Phone Care Team Providers Care Associate Business Analyst Name Role Phone Benito Saucedo MD Primary Care Provider [phone] Encounter Details Date Type Department Care Team (Late st Contact Info) Description 12/09/2023 Documentation Only [facility] [place], [address] [place] [address] Holly Stone [address] [place] [address] Social History Tobacco Use Types Packs/Day Years [...] Visit [facility] [place] [facility] [place] [address] [facility] [address] [place] [address] Garima Rodriguez DO [address] [place] [address] documented as of this encounter Visit Diagnoses Not on filedocumented in this encounter Care Teams Associate Business Analyst Relationship Specialty Start Date End Date Benito Saucedo MD [address] [place] [phone] PCP - General Family Medicine 11/18/20 documented as of this encounter
== END 2025-01-08 06:16 | disposition home or self-care (01) ==
LOC: CF 06:15
PROVIDERS: Visit Provider Anesthesiology
DX: M47.816 Spondylosis without myelopathy or radiculopathy, lumbar region (principal)
CPT/HCPCS: 64635; 64636; J2003; J2795; J3301

== ENCOUNTER 2025-01-08 07:54 | Outpatient (AMB) | payer MEDICARE, SELFPAY ==
--- OUTSIDE RECORDS SUMMARY | 2025-01-08 07:58 | XMS_ITS | Encounter Summary ---
Author Organization [facility], Address [address] [place] [address] Phone Care Team Providers Care Director Of Business Services Name Role Phone Benito Saucedo MD Primary Care Provider [phone] Encounter Details Date Type Department Care Team (Late st Contact Info) Description 12/09/2023 Documentation Only [facility] [place], [address] [place] [address] Holly Stone [address] [place] [address] Social History Tobacco Use Types [...] Visit [facility] [place] [facility] [place] [address] [facility] [address] [place] [address] Garima Rodriguez DO [address] [place] [address] documented as of this encounter Visit Diagnoses Not on filedocumented in this encounter Care Teams Director Of Business Services Relationship Specialty Start Date End Date Benito Saucedo MD [address] [place] [phone] PCP - General Family Medicine 11/18/20 documented as of this encounter
--- OUTSIDE RECORDS SUMMARY | 2025-01-08 07:58 | XMS_ITS | Clinical Summary ---
Author Organization [facility] Address [address] [facility] [address] [place] [address] Phone Care Team Providers Care Hoop Flaring Machine Operator Helper Name Role Phone Benito Saucedo MD Primary Care Provider [phone] Allergies Active Allergy Reactions Criticality Noted Date Comments Dominguez Inhibitors Other (see comments) 02/13/2015 Other reaction(s): Cough cough Beta Adrenergic Blockers High 06/06/2023 SYMPTOMATIC BRADYCARDIA Chromium 07/14/2021 Citalopram 07/14/2021 QT prolongation Copper Other (see comments) 02/13/2015 Allergy tested positive Other reaction(s): Unknown Allergy tested positive Gold Other (see comments) 02/13/2015 Allergy tested positive Other reaction(s): Unknown Allergy tested positive Allergy tested positive Empagliflozin Other (see comments) 12/13/2023 Causes BRIANNE Losartan Other (see comments) High 06/06/2023 Severe cough with both DOMINGUEZ and ARB Penicillins Other (see comments) 03/27/2014 Allergy tested positive Other reaction(s): Unknown Allergy tested positive Other reaction(s): other HAD A ALLERGY TEST AND WAS POSITIVE FOR PCN - UNKNOWN REACTION Medications amLODIPine (NORVASC) 10 MG tablet Take 5 mg by mouth 1 (one) time each day Active meclizine (ANTIVERT) 12.5 MG tablet Take 1 tablet by mouth 3 (three) times a day if needed Active allopurinol (ZYLOPRIM) 100 MG tablet Take 200 mg by mouth 1 (one) time each day Active butalbital-acet aminophen-caffe ine (FIORICET, ESGIC) 50-325-40 MG per tablet take 1 tablet by mouth for ONSET HEADACHE- MAY REPEAT ONCE. DO N... (REFER TO PRESCRIPTION NOTES). 8 Active nystatin (MYCOSTATIN) cream Apply topically 8 Active gabapentin (NEURONTIN) 600 MG tablet Take 300 mg by mouth in the morning and 300 mg in the evening and 300 mg before bedtime. 1 Active betamethasone, augmented, (DIPROLENE) 0.05 % cream 1 Active leflunomide (ARAVA) 20 MG tablet Take 20 mg by mouth 1 (one) time each day Active torsemide (DEMADEX) 20 MG tablet Take 20 mg by mouth every other day Active hydrALAZINE 25 MG tablet Take 75 mg by mouth in the morning and 75 mg in the evening and 75 mg before bedtime. 2 Active pantoprazole (PROTONIX) 40 MG EC tablet Take 40 mg by mouth 1 (one) time each day 2 Active cholecalciferol (VITAMIN D-3) 25 MCG (1000 UT) tablet Take 1,000 Units by mouth 1 (one) time each day Active levothyroxine sodium (TIROSINT) 112 MCG capsule Take 112 mcg by mouth 1 (one) time each day Active aspirin (ST ZO) 81 MG EC tablet Take 81 mg by mouth 1 (one) time each day Active Insulin Degludec (Tresiba) 100 UNIT/ML solution Inject under the skin Active atorvastatin (LIPITOR) 40 MG tablet Take 40 mg by mouth 1 (one) time each day Active carvedilol (COREG) 25 MG tablet Take 25 mg by mouth 2 09/19/20 25 Active ezetimibe (ZETIA) 10 MG tablet Take 10 mg by mouth 5 Active insulin aspart (NovoLOG FLEXPEN) 100 UNIT/ML injection 3 Active insulin glargine (Lantus SoloStar) 100 UNIT/ML injection Inject 72 Units under the skin 3 Active saccharomyces boulardii (Florastor) 250 MG capsule 250 Unknown, Oral, 1 Refill(s), Take 250 mg by mouth., 0 Refills, 02/08/23 12:25:00 EDT, Partial fill upon patient request if the prescription is for a schedule II opioid drug. 3 Active Active Problems Problem Noted Date Diagnosed Date Stage 3b chronic kidney disease 10/14/2021 Secondary hyperparathyroidism of renal origin Chronic diastolic congestive heart failure 12/27 Hypertension 10/23/2019 Type 2 diabetes mellitus 10/23/2019 Vitamin D deficiency 10/23/2019 Resolved Problems Problem Noted Date Diagnosed Date Resolved Date Polyneuropathy due to diabetes mellitus 12/11/2024 12/11/2024 Essential tremor 12/09/2023 12/09/2023 Gout 01/24/2023 01/24/2023 Hypoxemia 01/24/2023 01/24/2023 Long QT syndrome 01/24/2023 01/24/2023 Spinal stenosis 01/24/2023 01/24/2023 Chronic kidney disease, stage 4 (severe) 12/21/2021 02/25/2022 Arachnoid cyst 10/14/2021 10/14/2021 H/O: musculoskeletal disease 10/14/2021 10/14/2021 Migraine 10/14/2021 10/14/2021 Osteoporosis 10/14/2021 01/24/2023 Peripheral venous insufficiency 10/14/2021 10/14/2021 Hypothyroidism 11/14/2020 07/14/2021 Anemia 07/21/2020 01/27/2023 Chronic back pain 07/21/2020 07/14/2021 Depressive disorder 07/21/2020 07/14/20 21 Congestive heart failure 07/21/2020 Morbid obesity 07/21/2020 07/14/2021 Obstructive sleep apnea syndrome 07/21/2020 07/14/2021 Arthritis 07/21/2020 07/14/2021 Disorder of thyroid gland 02/29/2020 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 Hypokalemia 12/28/2019 01/27/2023 Chronic kidney disease, stage 4 (severe) 10/23/2019 10/14/2021 M??ni??re's disease 10/23/2019 07/14/20 21 Motion sickness 10/23/2019 07/14/2021 Renal stone 10/23/2019 07/14/2021 Transient cerebral ischemia 10/23/2019 07/14/2021 Vertigo 10/23/2019 07/14/2021 Acute nontraumatic kidney injury 10/12/2019 07/14/2021 Diastolic heart failure 10/09/201906/26 Overview (02/29/2020): See [facility] discharge notes from 10/05/19. Lumbar spondylosis 06/27/2019 Degeneration of lumbar intervertebral disc 05/25/2019 07/14/2021 Overview (02/29/2020): Last Assessment & Plan: I do think at this point we need to evaluate the lumbar spine as well. There is clearly tenderness and pain and this will determine whether there is an inflammatory component to the hip and/or if this is really referred pain. Edema of lower extremity 08/24/2018 Overview (11/14/2020): Last Assessment & Plan: Continues to have bilateral lower extremity edema, left greater than the right. No evidence of infection or cellulitis at this time. We did discuss signs and symptoms of infection patient verbalized understanding. Recommended short periods of activity to help with circulation. Per patient visiting nurses had difficult time obtaining pedal pulses, pulses were +2 bilaterally. Acute urinary tract infection 04/25/2018 07/14/2021 Overview (02/29/2020): Last Assessment & Plan: In terms of acute cystitis. We will set her up for urine analysis and culture. I will start nitrofurantoin. Will avoid Bactrim due to methotrexate use. The cultures and sensitivities will then determine if we stay on this medicine or Guerline therapy. Other fatigue 04/25/2018 12/11/2024 Overview (12/11/2024): Medication related from methotrexate Fatty liver 07/11/2017 07/14/2021 Rheumatoid arthritis 06/28/2017 021 Overview (07/21/2020): Last Assessment & Plan: At this point she does have active [...] and I will send this to her gun tester. If there is a determination for surgery [...] decision with her, primary care physician and gun tester all about best options for treatment. Explained this in detail. Rheumatoid arthritis 06/28/2017 021 Overview (11/18/2020): Last Assessment & Plan: We will discuss with her gun tester to see what my options are in terms of treatment. TNF agents would not be warranted. Rinvoq could be an option because it does not have cardiovascular risk as potential adverse effect. Elevated C-reactive protein (CRP) 05/20/2017 07/14/2021 Erythrocyte sedimentation ra te above reference range 03/25/2017 07/14/2021 Overview (02/29/2020): Last Assessment & Plan: I think we will see an improvement in these numbers. She is starting to feel better overall. Dyspnea 12/15/2016 10/14/2021 Overview (10/14/2021): 01/04/2017 -- on exertion Hyperlipidemia 07/29/2016 01/24/2023 Osteoarthritis 07/22/2016 07/14/2021 Overview (07/21/2020): Last Assessment & Plan: Continue stay active. Maintain healthy weight. Tylenol as previously discussed. Sciatica 02/20/2016 10/14/2021 Overview (10/14/2021): Left Encounters Date Type Department Care Team Description 12/31/2024 Office Communication [facility] [address] [place] [address] Holly Stone 12/13/2024 1:00 PM EDT Office Visit [facility] [address] [place] [phone] Garima Rodriguez DO Stage 3b chronic kidney disease (HCC) (Primary Dx); Type 2 diabetes mellitus with diabetic chronic kidney disease (HCC); Hypertension; Chronic diastolic congestive heart failure (HCC); Secondary hyperparathyroidism of renal origin (HCC) 11/28/2024 Orders Only [facility] [address] [phone] Garima Rodriguez DO Stage 3b chronic kidney disease (HCC); Type 2 diabetes mellitus with diabetic chronic kidney disease (HCC) from Last 3 Months Immunizations Immunization Administration Dates Next Due Influenza Whole 08/30/2019, 8,07/28/2017,2015 Influenza, Quadrivalent, Pre servative Free 08/30/2019 Moderna SARS-COV-2 07/11/2023, 2,07/28/2021,2020,10/30/2020 Pneumococcal Conjugate 13-Valent 11/09/2019,08/27 Shingrix 07/18/2020,12/22/2012 Td, Unspecified 07/07/2019 Tdap 07/07/2019 Zoster 07/17/2020,12/22/2012 Family History Medical History Relation Comments Diabetes Brother Heart failure Father Rheum arthritis Maternal Grandmother Diabetes Mother Heart failure Mother Cancer Paternal Grandmother Cancer Sister Relation Status Comments Brother Father Maternal Grandmother Mother Paternal Grandmother Sister Social History Tobacco Use Types Packs/Day Years Used Date Smoking Tobacco: Never Smokeless Tobacco: Never Tobacco Cessation:Counseling Given: Not Answered Alcohol Use Standard Drinks/Week Comments Not Currently 0 (1 standard drink = 0.6 oz pur e alcohol) Comments Unknown Sex and Gender Information Value Date Recorded Sex Assigned at Not on file Legal Sex Female 4:33 PM EST Gender Identity Not on file Sexual Orientation Not on file Last Filed Vital Signs Vital Sign Reading Time Taken Comments Blood Pressure 138/64 12/13/2024 1:01 PM EDT Pulse - - Temperature - - Respiratory Rate - - Oxygen Saturation - - Inhaled Oxygen Concentration - - Weight 159 kg (349 lb 14.4 oz) 07/19/2019 12:00 PM EDT Height 157.5 cm (5' 2 ) 07/19/2019 12:00 PM EDT Body Mass Index 64 07/19/2019 12:00 PM EDT Plan of Treatment Upcoming Encounters Date Type Department Care Team (Late st Contact Info) Description 06/13/2025 12:00 PM EDT Office Visit [facility] [address] [phone] Garima Rodriguez, DO [address] [place] [address] Health Maintenance Due Date Last Done Comments Breast Cancer Screening 1950 Colorectal Cancer Screening: Annual FOBT 02/26/2001 Colorectal Cancer Screening: Colonoscopy 02/26/2001 Colorectal Cancer Screening: Sigmoidoscopy 02/26/2001 Diabetes: Ophthalmology Exam 10/23/2019 Diabetes: Pedal Pulse Checked 10/23/2019 Diabetes: Sensory Foot Exam 10/23/2019 Diabetes: Visual Foot Exam 10/23/2019 Pneumococcal Vaccine: 50+ Years (2 of 2 - PPSV23) 01/04/2020 11/09/2019, 09/22/2018 Diabetes: Hemoglobin A1C 04/28/2021 021, 07/31/2019, 03/12/2019 Influenza Vaccine (Season Ended) 2025 08/30/2019, 08/30/2019, 08/24/2018, Additional history exists Pneumococcal Vaccine: Peds (0 to 5 Years) and At-Risk Patients (6 to 49 Years) Discontinued 11/09/2019, 09/22/2018 Hepatitis B Vaccine Aged Out No longe r eligible based on patient's age to complete this topic Procedures Procedure Name Priority Date/Time Associated Diagnosis Comments RENAL FUNCTION PANEL Routine 12/10/2024 9:44 AM EDT Stage 3b chronic kidney disease (HCC) VITAMIN D 25 HYDROXY Routine 12/10/2024 9:44 AM EDT Stage 3b chronic kidney disease (HCC) URINE ALBUMIN / CREATININE RATIO Routine 12/10/2024 9:44 AM EDT Stage 3b chronic kidney disease (HCC) Type 2 diabetes mellitus with diabetic chronic kidney disease (HCC) PTH, INTACT Routine 12/10/2024 9:44 AM EDT Stage 3b chronic kidney disease (HCC) CBC Routine 12/10/2024 9:44 AM EDT Stage 3b chronic kidney disease (HCC) EXT RESULT ENTRY Routine 01/26/2021 from Last 3 Months or Most Recently Relevant to Health Maintenance Results * Urine Albumin / Creatinine Ratio (12/10/2024 9:44 AM EDT) Creatinine, Ur 129.9 Not Estab. mg/dL [facility] Albumin, Urine 15.9 Not Estab. ug/mL [facility] Albumin/Creatin ine Ratio 12 0 - 29 mg/g creat [facility] Comment: ? Normal: ?0 - ??29 ? Moderately increased: 30 - 300 ? Severely increased: ? >300 Urine (Urine, Clean Catch) 12/10/2024 9:44 AM EDT 12/10/2024 Garima Rodriguez DO LAB URINE ORDERABLES Final Re sult Performing Organization Address [facility] de Phone Number [employer] [facility] [address] [place] [address] * Vitamin D 25 hydroxy (12/10/2024 9:44 AM EDT) Vitamin D, 25-OH, Total 33.4 30.0 - 100.0 ng/mL [facility] Comment: Vitamin D deficiency has been defined by the [place] of Medicine and an Endocrine Society practice guideline as a level of serum 25-OH vitamin D less than 20 ng/mL (1,2). The Endocrine Society went on to further define vitamin D insufficiency as a level between 21 and 29 ng/mL (2). 1. IOM ([place] of Medicine). 2010. Dietary reference ?? intakes for calcium and D. [place]: The ?? National Academies Press. 2. Santiago MF, Donovan [place], Arik CARIAS, et al. ?? Evaluation, treatment, and prevention of vitamin D ?? deficiency: an Endocrine Society clinical practice ?? guideline. JCEM. 2010; 96(7):1911-30. Blood (Blood, Venous) 12/10/2024 9:44 AM EDT 12/10/2024 Garima Rodriguez DO LAB BLOOD ORDERABLES Final Re sult Performing Organization Address [facility] Co de Phone Number [employer] [facility] [address] [place] [address] * CBC (12/10/2024 9:44 AM EDT) WBC 8.1 3.4 - 10.8 x10E3/uL [facility] RBC 4.50 3.77 - 5.28 x10E6/uL [facility] Hemoglobin 13.4 11.1 - 15.9 g/dL [facility] Hematocrit 39.9 34.0 - 46.6 % [facility] MCV 89 79 - 97 fL [facility] MCH 29.8 26.6 - 33.0 pg [facility] MCHC 33.6 31.5 - 35.7 g/dL [facility] RDW 13.8 11.7 - 15.4 % [facility] Platelets 230 150 - 450 x10E3/uL [facility] Blood (Blood, Venous) 12/10/2024 9:44 AM EDT 12/10/2024 us Garima ibeatyou DO LAB BLOOD ORDERABLES Final Re sult [facility] [address] [place] [address] * (ABNORMAL) PTH, intact (12/10/2024 9:44 AM EDT) Pathologist [facility] PTH 210(H) 15 - 65 pg/mL [facility] Blood (Blood, Venous) 12/10/2024 9:44 AM EDT 12/10/2024 us [employer] DO LAB BLOOD ORDERABLES Final Re sult [facility] [address] [place] [address] * (ABNORMAL) Renal function panel (12/10/2024 9:44 AM EDT) Glucose 171(H) 70 - 99 mg/dL [facility] BUN 25 8 - 27 mg/dL [facility] Creatinine 1.62(H) 0.57 - 1.00 mg/dL [facility] eGFR CKD-EPI CR 2020 34(L) >59 mL/min/1.7 3 [facility] BUN/Creatinine Ratio 15 12 - 28 [facility] Sodium 145(H) 134 - 144 mmol/L [facility] Potassium 3.8 3.5 - 5.2 mmol/L [facility] Chloride 105 96 - 106 mmol/L [facility] Bicarbonate (CO2) 21 20 - 29 mmol/L [facility] Calcium 9.1 8.7 - 10.3 mg/dL [facility] Albumin 3.9 3.8 - 4.8 g/dL [facility] Phosphorus 2.7(L) 3.0 - 4.3 mg/dL [facility] Blood (Blood, Venous) 12/10/2024 9:44 AM EDT 12/10/2024 us Garima Rodriguez DO LAB BLOOD ORDERABLES Final Re sult [facility] [place] [address] [place] [address] * (ABNORMAL) EXT RESULT ENTRY (01/26/2021) Sodium 138 137 - 147 Potassium 4.3 3.4 - 5.5 Chloride 91(A) 99 - 108 Bicarbonate (CO2) 29 22 - 30 mmol/L Anion Gap 18 <=30 MMOL/L Glucose 234(A) 60 - 200 BUN 57(A) 4 - 21 mg/dL Creatinine 2.50(A) 0.50 - 1.10 mg/dL Calcium 10.2 8.7 - 10.7 mg/dL eGFR Non-Afr Irish 19 Magnesium 2.4 1.6 - 2.4 Hemoglobin A1C 8.2(A) 4.0 - 6.0 01/26/2021 us [facility] Provider LAB BLOOD ORDERABLES Yue l Result from Last 3 Months or Most Recently Relevant to Health Maintenance Insurance Medicare [facility] Medicare [facility] Care Teams Hoop Flaring Machine Operator Helper Relationship Specialty Start Date End Date Benito Saucedo MD [address] [place] [id number] PCP - General Family Medicine 11/18/20
--- OUTSIDE RECORDS SUMMARY | 2025-01-08 07:58 | XMS_ITS | Encounter Summary ---
Author Organization [facility] Address [address] [place] [address] Phone Care Team Providers Care Training And Development Manager Name Role Phone Benito Saucedo MD Primary Care Provider [phone] Encounter Details Date Type Department Care Team (Late st Contact Info) Description 11/28/2024 Orders Only [facility] [address] [place] [phone] Garima Rodriguez, [address] [place] [address] Stage 3b chronic kidney disease (HCC); Type [...] Visit [facility] [address] [place] [phone] RodriguezGarima, DO [address] [place] [address] documented as of this encounter Procedures [...] Glucose 171(H) 70 - 99 mg/dL [facility] BUN 25 8 - 27 mg/dL [facility] Creatinine 1.62(H) 0.57 - 1.00 mg/dL [facility] eGFR CKD-EPI CR 2020 34(L) >59 mL/min/1.7 3 [facility] BUN/Creatinine Ratio 15 12 - 28 [facility] Sodium 145(H) 134 - 144 mmol/L [facility] Potassium 3.8 3.5 - 5.2 mmol/L [facility] Chloride 105 96 - 106 mmol/L [facility] Bicarbonate (CO2) 21 20 - 29 mmol/L [facility] Calcium 9.1 8.7 - 10.3 mg/dL [facility] Albumin 3.9 3.8 - 4.8 g/dL [facility] Phosphorus 2.7(L) 3.0 - 4.3 mg/dL [facility] Blood (Blood, Venous) 12/10/2024 9:44 AM EDT 12/10/2024 us Garima Rodriguez DO LAB BLOOD ORDERABLES Final Re sult [facility] [address] [place] [address] * Vitamin D 25 hydroxy (12/10/2024 9:44 AM EDT) Vitamin D, 25-OH, Total 33.4 30.0 - 100.0 ng/mL [facility] Comment: Vitamin D deficiency has been defined by the [place] of Medicine and an Endocrine Society practice guideline as a level of serum 25-OH vitamin D less than 20 ng/mL (1,2). The Endocrine Society went on to further define vitamin D insufficiency as a level between 21 and 29 ng/mL (2). 1. IOM ([place] of Medicine). 2010. Dietary reference ?? intakes for calcium and D. [place]: The ?? National AcademExepron Press. 2. Santiago MF, Donovan [place], Arik CARIAS, et al. ?? Evaluation, treatment, and prevention of vitamin D ?? deficiency: an Endocrine Society clinical practice ?? guideline. JCEM. 2011 Mar; 96(7):1911-30. Blood (Blood, Venous) 12/10/2024 9:44 AM EDT 12/10/2024 us Garima Rodriguez DO LAB BLOOD ORDERABLES Final Re sult Performing Organization Address [facility] de Phone Number [facility] [address] [place] [address] * Urine Albumin / Creatinine Ratio (12/10/2024 9:44 AM EDT) Creatinine, Ur 129.9 Not Estab. mg/dL [facility] Albumin, Urine 15.9 Not Estab. ug/mL [facility] Albumin/Creatin ine Ratio 12 0 - 29 mg/g creat [facility] Comment: ? Normal: ?0 - ??29 ? Moderately increased: 30 - 300 ? Severely increased: ? >300 Urine (Urine, Clean Catch) 12/10/2024 9:44 AM EDT 12/10/2024 us Garima Rodriguez DO LAB URINE ORDERABLES Final Re sult Performing Organization Address [facility] de Phone Number [facility] [address] [place] [address] * (ABNORMAL) PTH, intact (12/10/2024 9:44 AM EDT) PTH 210(H) 15 - 65 pg/mL [facility] Blood (Blood, Venous) 12/10/2024 9:44 AM EDT 12/10/2024 us Garima Rodriguez DO LAB BLOOD ORDERABLES Final Re sult Performing Organization Address [facility] de Phone Number [facility] [address] [place] [address] * CBC (12/10/2024 9:44 AM EDT) WBC 8.1 3.4 - 10.8 x10E3/uL [facility] RBC 4.50 3.77 - 5.28 x10E6/uL [facility] Hemoglobin 13.4 11.1 - 15.9 g/dL [facility] Hematocrit 39.9 34.0 - 46.6 % [facility] MCV 89 79 - 97 fL [facility] MCH 29.8 26.6 - 33.0 pg [facility] MCHC 33.6 31.5 - 35.7 g/dL [facility] RDW 13.8 11.7 - 15.4 % [facility] Platelets 230 150 - 450 x10E3/uL [facility] Blood (Blood, Venous) 12/10/2024 9:44 AM EDT 12/10/2024 us Garima Rodriguez DO LAB BLOOD ORDERABLES Final Re sult [facility] [address] [place] [address] documented in this encounter Visit Diagnoses Diagnosis Stage 3b chronic kidney disease (HCC) Type 2 diabetes mellitus with diabetic chronic kidney disease (HCC) documented in this encounter Care Teams Training And Development Manager Relationship Specialty Start Date End Date Benito Saucedo MD [address] [place] [phone] PCP - General Family Medicine 11/18/20 documented as of this encounter
--- OUTSIDE RECORDS SUMMARY | 2025-01-08 07:58 | XMS_ITS | Clinical Summary ---
Author Organization [facility] Address [address] [place] [address] Care Team Providers Care [employer]acher [employer] Name Role Phone Unavailable Primary Care Provider [...]
--- OUTSIDE RECORDS SUMMARY | 2025-01-08 07:58 | XMS_ITS | Clinical Summary ---
[place] [address] Care Team Providers Care Barber Stylist Name Role Phone Benito Saucedo MD Primary Care Provider [phone] Allergies Active Allergy Reactions Criticality Noted Date [...] (Antivert) 25 mg tablet 07/20/2022 Active butalbital-acetamino trgg-fredvfbn-ksifyb e (Fioricet with Codeine) [id number] mg capsule 09/21/2022 Active azithromycin (Zithromax) 500 [...] mL, 3 Refills, Maintenance, 12/23/23 9:40:00 EDT, [facility] Mail Delivery, Partial fill upon patient [...] congestive heart failure 10/09 Overview (12/31/2021): See [facility] discharge notes from 10/05/19. Skin rash 08/07/2019 [...] of the most recent lab results in [facility]. The most recent laboratory results were [...] in. She sees a physical therapist in [place]. Assessment & Plan (09/06/2017 9:14 AM EST): Proceed with corticosteroid injection. She was given exercises to start to do. Will then set up for x-ray today. See if this improves overall. Abnormal gallbladder ultrasound 07/11/2017 Abnormal ultrasound of liver 07/11/2017 Fatty liver 07/11/2017 Rheumatoid arthritis 06/28/2017 Assessment & Plan (08/24/2020 10:26 AM EST): We will discuss with her right of way maintenance supervisor to see what my options are in [...] and I will send this to her right of way maintenance supervisor. If there is a determination for surgery [...] decision with her, primary care physician and right of way maintenance supervisor all about best options for treatment. Explained [...] Medrol for a week. Add pain medicine Bardolph 5/325 1 tablet twice daily as needed [...] include serious infections, COPD exacerbations, pneumonia, lymphoma. [facility] CONSENT [facility] Biologic agents may [...] condition. If you are noted to have [place] Heart Failure Classification 3 or 4, tell [...] be determined based on your insurance, financial investment manager if applicable or pharmacy industry copayment cards [...] any of your other providers or your gas welding equipment mechanic. Side effects discussed at length to include but not limited to liver function abnormalities, WBC changes, lung fibrosis, oral ulcers, hair loss and flu like syndrome. Acute lung toxicity and acute toxicity causing decreased blood counts and pancytopenia. Risk of lymphoma is increased with long-term use. Patient should limit, and preferably, abstain [...] 9:40 AM EDT Office [place] [address] Barrett Jay MD Sensorineural hearing loss (SNHL) of both ears; Tympanic membrane perforation, left; Tympanic membrane retraction, right; H/O Meniere's disease 12/19/2024 9:00 AM EDT Office Visit Audiology at [address] [address] Yeimi Park, PhD Sensorineural hearing loss, bilateral [...] EDT) Creatinine 2.06(H) 0.70 - 1.20 mg/dL [facility] Est Glomerular Filtration Rate 24(L) >=60 mL/min/1. 73 m?? [facility] Comment: This patient? s estimated glomerular [...] Jay MD CHEMISTRY ORDERABLES Performing Organization Address City/[facility]/ZIP Co de Phone Number [facility] [place] [address] * (ABNORMAL) Basic Metabolic Panel (non-fasting) (10/19/2019 4:55 AM EST) Glucose 169 65 - 199 mg/dL [facility] Comment:Diabetes: >=200 mg/d L plus symptoms Blood Urea Nitrogen 77(H) 8 - 18 mg/dL [facility] Creatinine 2.88(H) 0.70 - 1.20 mg/dL [facility] Sodium 139 135 - 145 mmol/L [facility] Potassium 3.3(L) 3.5 - 5.0 mmol/L [facility] Comment: Please note: ??Patients with WBC >100,000 may have falsely elevated Potassium levels. ??For accurate Potassium quantification in these patients send serum separator tube (gold top) for subsequent determinations. ??Contact the Clinical Chemistry Laboratory if there are any questions. Chloride 90(L) 98 - 107 mmol/L [facility] Carbon Dioxide 30 22 - 31 mmol/L [facility] Anion Gap 19(H) 5 - 15 mmol/L [facility] Calcium 10.2 8.5 - 10.5 mg/dL [facility] Est Glomerular Filtration Rate 16(L) >=60 mL/min/1. 73 m?? [facility] Comment: The eGFR was calculated using the CKD-EPI equation. As with all creatinine based estimates of kidney function, eGFR values calculated with the CKD-EPI equation are not accurate in patients with acute kidney failure, extremes of body mass or the acutely ill. http://[facility] [place] eGFR 19(L) >=60 mL/min/1. 73 m?? [facility] Comment: The eGFR was calculated using the CKD-EPI equation. As with all creatinine based estimates of kidney function, eGFR values calculated with the CKD-EPI equation are not accurate in patients with acute kidney failure, extremes of body mass or the acutely ill. http://[facility] [place] Blood specimen (specimen) 10/19/2019 4:55 AM EST 10/19/2019 5:40 AM EST Narrative Resulting Agency Comment Spec In Lab Dara Carreon MD CHEMISTRY ORDERABLES [facility] [address] [place] [address] * COLONOSCOPY (03/26/2019 6:43 AM EDT) COLONOSCOPY Patient Name: Tiffanie Stern Procedure Date: 03/26/2019 6:43 AM ?Attending MD: Lucho Ohara MD Date of : 1950 ?Order #: [id number] Age: 69 ?Instrument Name: [id number] Procedure: ? Colonoscopy Indications: ? Iron deficiency anemia Providers: ? Lucho Ohara MD, [place] ? Ama Krishna MD: ? Medicines: ? [...] Procedure Code(s): ?? --- Professional --- ? 37425, Colonoscopy, flexible; with ? biopsy, single or [...] ? abscess without bleeding CPT copyright 2017 [employer]. All rights reserved. The codes documented in this report are preliminary and upon operations analyst review may be revised to meet current compliance requirements. Lucho Oahra MD ___ Lucho Ohara MD 03/26/2019 8:13:36 [...] and lumbar spine was performed with the [employer] C DEXA Scanner. At the left [...] hip and lumbar spine wasperformed with the [employer] C DEXA Scanner. At the left [...] Documents on File Type Date Recorded Patient Harness Cutter Expl anation Advance Directives and Livin g Will 11/24/2010 4:05 PM * Full Code (Latest Code Status on File) Date Activated Date Inactivated Comments 10/12/2019 4:08 PM 10/19/2019 5:45 PM Question Answer Comments Does patient have capacity to make decision: Yes Care Teams Barber Stylist Relationship Specialty Start Date End Date Benito Saucedo MD [address] [place] [address] PCP - General 03/14/20
--- OUTSIDE RECORDS SUMMARY | 2025-01-08 07:59 | XMS_ITS | Encounter Summary ---
Author Organization [facility] [place] [address] Care Team Providers Care Base Filler Name Role Phone Benito Saucedo MD Primary Care Provider [phone] Reason for Visit * Reason Onset Date Comments Medication Refill 06/12/2019 Encounter Details Date Type Department Care Team ([facility] st Contact Info) Description 06/12/2019 Refill Rheumatology at [address] [phone] Jose Walters MD [address] [place] [address] [place] [address] Degenerative disc disease, lumbar Social History Tobacco [...] disc documented in this encounter Care Teams Base Filler Relationship Specialty Start Date End Date Benito Saucedo MD [address] [place] [address] PCP - General 03/14/20 documented as of this encounter
--- OUTSIDE RECORDS SUMMARY | 2025-01-08 07:59 | XMS_ITS | Encounter Summary ---
[place] [address] Care Team Providers Care Building Maintenance Technician Name Role Phone Benito Saucedo MD Primary Care Provider [phone] Reason for Visit * Reason Onset Date Comments Medication Refill 10/15/2020 Encounter Details Date Type Department Care Team ([facility] st Contact Info) Description 10/15/2020 Refill Rheumatology at [address] [phone] Jose Walters MD [address] [place] [address] [place] [address] High risk medication use; Acute gout due [...] factor documented in this encounter Care Teams Building Maintenance Technician Relationship Specialty Start Date End Date Benito Saucedo MD [address] [place] [address] PCP - General 03/14/20 documented as of this encounter
--- OUTSIDE RECORDS SUMMARY | 2025-01-08 07:59 | XMS_ITS | Encounter Summary ---
Author Organization [facility] [place] [address] Care Team Providers Care Floral Merchandiser Name Role Phone Benito Saucedo MD Primary Care Provider [phone] Reason for Visit * Reason Onset Date Comments Medication Refill 05/30/2019 Encounter Details Date Type Department Care Team ([facility] st Contact Info) Description 05/30/2019 Refill Rheumatology at [address] [phone] Jose Walters MD [address] [place] [address] [place] [address] Degenerative disc disease, lumbar Social History Tobacco [...] disc documented in this encounter Care Teams Floral Merchandiser Relationship Specialty Start Date End Date Benito Saucedo MD [address] [place] [address] PCP - General 03/14/20 documented as of this encounter
[2025-01-08 08:00] VITALS: BP 148/59; PULSE 60; RESP 16; O2SAT 94
--- NOTE | 2025-01-08 08:00 | A.OFFVIS_ITS ---
Vital Signs 01/08/25 08:00 01/08/25 08:53 BP 148/59 H 135/58 L Blood Pressure Location Lt radial Rt radial Position Sitting Sitting Respiration 16 16 Pulse 60 61 Pulse Source Pulse Oximeter Pulse Oximeter Pulse Oximetry (%) 94 90 L Oxygen Delivery Method Room Air Room Air Intake Visit Reasons: RIGHT L3, L4, DRL5 MBB RFA Greenhouse Specialist Required: No Allergies Penicillins Allergy (Unknown, Verified 01/08/25 08:00) Unknown Medication List - Last Reconciled 01/08/25 by Maricel Guerin LPN allopurinol mg PO alprazolam mg PO amlodipine 10 mg PO DAILY atorvastatin 40 mg PO DAILY carvedilol mg PO gabapentin mg PO hydralazine mg PO insulin degludec (Tresiba FlexTouch U-100 insulin) units subcut leflunomide mg PO levothyroxine mcg PO pantoprazole 40 mg PO DAILY PFSH Medical History (Updated 09/15/24 @ 22:38 by JULIO Cavanaugh) Chronic low back pain Severe obesity Diabetes Hypertension Surgical History (Updated 09/14/24 @ 09:28 by Tonia [place]) Hx of joint replacement Physical Exam Vital Signs: Last Vital Signs Pulse 61 01/08/25 08:53 Resp 16 01/08/25 08:53 BP 135/58 L 01/08/25 08:53 Pulse Ox 90 L 01/08/25 08:53 Oxygen Delivery Method Room Air 01/08/25 08:53 Assessment & Plan Assessment & Plan (1) Spondylosis of lumbar region without myelopathy or radiculopathy: Code(s): M47.816 - Spondylosis without myelopathy or radiculopathy, lumbar region Category: Medical (2) Chronic low back pain: Code(s): M54.50 - Low back pain, unspecified; G89.29 - Other chronic pain Category: Medical Plan Radiofrequency ablation of medial branches L3,L4 dorsal ramus L5 bilateral.? ? ?Informed consent was explained to the patient. All questions were explained and? answered.? The patient was taken inside the operating room where she was positioned prone on the operating table. Time-out was performed delineating correct site, side, the nature of the procedure, patient's allergy, . All operating room staff was participating in OR time-out procedure. ? ? The lower back was prepped with ChloraPrep and draped with sterile towels. Sterilely draped C-arm was brought over the operating field and sq picture of L4-, L5 vertebra and S1 AREA were delineated on the screen.? Point of interest were delineated as confluence of superior articular process of L4 and L5 vertebra on the right with corresponding transverse processes as well as confluence of the sacral alae on the right with superior articular process of S1.? The projection of the point of interest to the skin were injected with the small amount of local anesthetic lidocaine 2% mixed with ropivacaine 0.5% 1-1 approcimately 1 cc.? After that 18 gauge 100 mm radiofrequency cannula were driven to the point of interest under x-ray guidance. After needles gently contacted the bones at the point of interests, the stylettes were removed and the RFA probes were inserted. Motor stimulation was applied to each of the positioned separately. The patient denies motor stimulation in the lower extremities. After that the probes were removed and the needles were injected with small amount of mixture of lidocaine 2% mixed with Kenalog 10 mg equally divided among the all 3 needle insertion. After that the energy application was made using 89 degrees centigrade temperature and time 90 seconds. Upon completion of the 1st application of the energy the needles were rotated 180 degrees and application of the energy was repeated. Upon completion of the energy application the needles were removed and sterile Band-Aids were applied. The patient tolerated the procedure well. She was taken outside of the operating room to recovery room where she recovered uneventfully. Orders: Orders FL guidance in treatment room Today M47.816 - Spondylosis without myelopathy or radiculopathy, lumbar region Coding Level of Care Code Procedure Only Diagnoses Spondylosis of lumbar region without myelopathy or radiculopathy M47.816 Chronic low back pain M54.50; G89.29
[2025-01-08 08:53] VITALS: BP 135/58; PULSE 61; RESP 16; O2SAT 90
== END 2025-01-08 08:53 | disposition home or self-care (01) ==
LOC: HO.PMCPRC 07:54
PROVIDERS: PCP Family Medicine; Visit Provider Anesthesiology
DX: M47.816 Spondylosis without myelopathy or radiculopathy, lumbar region (principal); M54.50 Low back pain, unspecified; G89.29 Other chronic pain
CPT/HCPCS: 64635; 64636

== ENCOUNTER 2025-01-15 06:26 | Outpatient (REF) | payer MEDICARE, SELFPAY ==
--- NOTE | ~2025-01-15 | FL_ITS ---
EXAMINATION: XR FLUOROSCOPY WITH IMAGES CLINICAL INFORMATION: Spondylosis without myelopathy or radiculopathy, lumbar region. Pain management procedure. COMPARISON: None available. TECHNIQUE: Fluoroscopy provided to: Dr. Garcia Fluoroscopy time: 0.5 minutes DAP: 0.237 mGycm2 Images: 2 FINDINGS: 2 fluoroscopic spot images obtained during lumbar spine procedure for pain management. Please refer to the full operative report for details. FL/FL guidance in treatment room IMPRESSION: Fluoroscopic guidance. Electronically signed by: Olivier Johnson MD 01/16/2025 09:51 AM EDT
--- OUTSIDE RECORDS SUMMARY | 2025-01-15 06:30 | XMS_ITS | Encounter Summary ---
Author Organization [facility], Address [address] [place] [address] Phone Care Team Providers Care Tax Services Intern Name Role Phone Benito Saucedo MD Primary Care Provider [phone] Encounter Details Date Type Department Care Team (Late st Contact Info) Description 11/28/2024 Orders Only [facility] [address] [place] [phone] Garima Rodriguez, [address] [place] [address] Stage 3b chronic kidney disease (HCC); Type [...] Visit [facility] [address] [place] [phone] RodriguezGarima, DO [address] [place] [address] documented as of this encounter Procedures [...] Glucose 171(H) 70 - 99 mg/dL [facility] BUN 25 8 - 27 mg/dL [facility] Creatinine 1.62(H) 0.57 - 1.00 mg/dL [facility] eGFR CKD-EPI CR 2020 34(L) >59 mL/min/1.7 3 [facility] BUN/Creatinine Ratio 15 12 - 28 [facility] Sodium 145(H) 134 - 144 mmol/L [facility] Potassium 3.8 3.5 - 5.2 mmol/L [facility] Chloride 105 96 - 106 mmol/L [facility] Bicarbonate (CO2) 21 20 - 29 mmol/L [facility] Calcium 9.1 8.7 - 10.3 mg/dL [facility] Albumin 3.9 3.8 - 4.8 g/dL [facility] Phosphorus 2.7(L) 3.0 - 4.3 mg/dL [facility] Blood (Blood, Venous) 12/10/2024 9:44 AM EDT 12/10/2024 us Garima Rodriguez DO LAB BLOOD ORDERABLES Final Re sult [facility] [address] [place] [address] * Vitamin D 25 hydroxy (12/10/2024 9:44 AM EDT) Vitamin D, 25-OH, Total 33.4 30.0 - 100.0 ng/mL [facility] Comment: Vitamin D deficiency has been defined by the Blue Eye of Medicine and an Endocrine Society practice guideline as a level of serum 25-OH vitamin D less than 20 ng/mL (1,2). The Endocrine Society went on to further define vitamin D insufficiency as a level between 21 and 29 ng/mL (2). 1. IOM (Blue Eye of Medicine). 2010. Dietary reference ?? intakes for calcium and D. [place]: The ?? National AcademBulldog Solutions Press. 2. Santiago MF, Donovan [place], Arik CARIAS, et al. ?? Evaluation, treatment, and prevention of vitamin D ?? deficiency: an Endocrine Society clinical practice ?? guideline. JCEM. 2011 Mar; 96(7):1911-30. Blood (Blood, Venous) 12/10/2024 9:44 AM EDT 12/10/2024 us Garima Rodriguez DO LAB BLOOD ORDERABLES Final Re sult Performing Organization Address [facility] de Phone Number Front [facility] [address] [place] [address] * Urine Albumin / Creatinine Ratio (12/10/2024 9:44 AM EDT) Creatinine, Ur 129.9 Not Estab. mg/dL [facility] Albumin, Urine 15.9 Not Estab. ug/mL [facility] Albumin/Creatin ine Ratio 12 0 - 29 mg/g creat [facility] Comment: ? Normal: ?0 - ??29 ? Moderately increased: 30 - 300 ? Severely increased: ? >300 Urine (Urine, Clean Catch) 12/10/2024 9:44 AM EDT 12/10/2024 us Garima Rodriguez DO LAB URINE ORDERABLES Final Re sult Performing Organization Address [facility] de Phone Number Front [facility] [address] [place] [address] * (ABNORMAL) PTH, intact (12/10/2024 9:44 AM EDT) PTH 210(H) 15 - 65 pg/mL [facility] Blood (Blood, Venous) 12/10/2024 9:44 AM EDT 12/10/2024 us Garima Rodriguez DO LAB BLOOD ORDERABLES Final Re sult Performing Organization Address [facility] de Phone Number [facility] [address] [place] [address] * CBC (12/10/2024 9:44 AM EDT) WBC 8.1 3.4 - 10.8 x10E3/uL [facility] RBC 4.50 3.77 - 5.28 x10E6/uL [facility] Hemoglobin 13.4 11.1 - 15.9 g/dL [facility] Hematocrit 39.9 34.0 - 46.6 % [facility] MCV 89 79 - 97 fL [facility] MCH 29.8 26.6 - 33.0 pg [facility] MCHC 33.6 31.5 - 35.7 g/dL [facility] RDW 13.8 11.7 - 15.4 % [facility] Platelets 230 150 - 450 x10E3/uL [facility] Blood (Blood, Venous) 12/10/2024 9:44 AM EDT 12/10/2024 us Garima Rodriguez DO LAB BLOOD ORDERABLES Final Re sult [facility] [address] [place] [address] documented in this encounter Visit Diagnoses Diagnosis Stage 3b chronic kidney disease (HCC) Type 2 diabetes mellitus with diabetic chronic kidney disease (HCC) documented in this encounter Care Teams Tax Services Intern Relationship Specialty Start Date End Date Benito Saucedo MD [address] [place] [address] PCP - General Family Medicine 11/18/20 documented as of this encounter
--- OUTSIDE RECORDS SUMMARY | 2025-01-15 06:30 | XMS_ITS | Clinical Summary ---
Author Organization [facility] Address [address] [place] [address] Care Team Providers Care Material Control Manager Name Role Phone Unavailable Primary Care Provider Unavailabl e Social History Tobacco Use Types Packs/Day Years Used Date Smoking Tobacco: Never Assessed Comments Unknown Sex and Gender Information Value Date Recorded Sex Assigned at Not on file Legal Sex Female 9:06 AM EST Gender Identity Not on file Sexual [...] on patient's age to complete this topic Insurance MEDICARE PART A & B [facility]
--- OUTSIDE RECORDS SUMMARY | 2025-01-15 06:30 | XMS_ITS | Encounter Summary ---
Author Organization [facility] [place] [address] Care Team Providers Care Retail Salesman Name Role Phone Benito Saucedo MD Primary Care Provider [phone] Reason for Visit * Reason Onset Date Comments Medication Refill 05/30/2019 Encounter Details Date Type Department Care Team ([facility] st Contact Info) Description 05/30/2019 Refill Rheumatology at [address] [phone] Jose Walters MD [address] [place] [address] [place] [address] Degenerative disc disease, lumbar Social History Tobacco [...] disc documented in this encounter Care Teams Retail Salesman Relationship Specialty Start Date End Date Benito Saucedo MD [address] [place] [address] PCP - General 03/14/20 documented as of this encounter
--- OUTSIDE RECORDS SUMMARY | 2025-01-15 06:30 | XMS_ITS | Encounter Summary ---
[place] [address] Care Team Providers Care Ground Crew Chief Name Role Phone Benito Saucedo MD Primary Care Provider [phone] Reason for Visit * Reason Onset Date Comments Medication Refill 10/15/2020 Encounter Details Date Type Department Care Team ([facility] st Contact Info) Description 10/15/2020 Refill Rheumatology at [address] [phone] Jose Walters MD [address] [place] [address] [place] [address] High risk medication use; Acute gout due [...] factor documented in this encounter Care Teams Ground Crew Chief Relationship Specialty Start Date End Date Benito Saucedo MD [address] [place] [address] PCP - General 03/14/20 documented as of this encounter
--- OUTSIDE RECORDS SUMMARY | 2025-01-15 06:30 | XMS_ITS | Encounter Summary ---
Author Organization [facility] [place] [address] Care Team Providers Care Log Brander Name Role Phone Benito Saucedo MD Primary Care Provider [phone] Reason for Visit * Reason Onset Date Comments Medication Refill 06/12/2019 Encounter Details Date Type Department Care Team ([facility] st Contact Info) Description 06/12/2019 Refill Rheumatology at [address] [phone] Jose Walters MD [address] [place] [address] [place] [address] Degenerative disc disease, lumbar Social History Tobacco [...] disc documented in this encounter Care Teams Log Brander Relationship Specialty Start Date End Date Benito Saucedo MD [address] [place] [address] PCP - General 03/14/20 documented as of this encounter
--- OUTSIDE RECORDS SUMMARY | 2025-01-15 06:30 | XMS_ITS | Encounter Summary ---
Author Organization [facility], Address [address] [place] [address] Phone Care Team Providers Care Wheel Alignment Technician Name Role Phone Benito Saucedo MD Primary Care Provider [phone] Encounter Details Date Type Department Care Team (Late st Contact Info) Description 12/09/2023 Documentation Only [facility], [address] [place] [address] Holly Stone [address] [place] [address] Social History Tobacco Use Types [...] Visit [facility] [place] [address] [facility] [address] [place] [address] Garima Rodriguez DO [address] [place] [address] documented as of this encounter Visit Diagnoses Not on filedocumented in this encounter Care Teams Wheel Alignment Technician Relationship Specialty Start Date End Date Benito Saucedo MD [address] [place] [address] PCP - General Family Medicine 11/18/20 documented as of this encounter
--- OUTSIDE RECORDS SUMMARY | 2025-01-15 06:30 | XMS_ITS | Clinical Summary ---
[place] [address] Care Team Providers Care Media Marketing Specialist Name Role Phone Benito Saucedo MD Primary Care Provider [phone] Allergies Active Allergy Reactions Criticality Noted Date [...] (Antivert) 25 mg tablet 07/20/2022 Active butalbital-acetamino pgne-myttqotm-xtyxsm e (Fioricet with Codeine) 21-939-23-30 mg capsule 09/21/2022 Active azithromycin (Zithromax) 500 [...] mL, 3 Refills, Maintenance, 12/23/23 9:40:00 EDT, [facility] Mail Delivery, Partial fill upon [...] congestive heart failure 10/09 Overview (12/31/2021): See [facility] discharge notes from 10/05/19. Skin rash [...] of the most recent lab results in [facility]. The most recent laboratory results were reviewed [...] in. She sees a physical therapist in [place]. Assessment & Plan (09/06/2017 9:14 AM EST): Proceed with corticosteroid injection. She was given exercises to start to do. Will then set up for x-ray today. See if this improves overall. Abnormal gallbladder ultrasound 07/11/2017 Abnormal ultrasound of liver 07/11/2017 Fatty liver 07/11/2017 Rheumatoid arthritis 06/28/2017 Assessment & Plan (08/24/2020 10:26 AM EST): We will discuss with her vocational horticulture instructor to see what my options are in [...] and I will send this to her vocational horticulture instructor. If there is a determination for surgery [...] decision with her, primary care physician and vocational horticulture instructor all about best options for treatment. Explained [...] Medrol for a week. Add pain medicine [place] 5/325 1 tablet twice daily as needed [...] include serious infections, COPD exacerbations, pneumonia, lymphoma. [facility] CONSENT [facility]M Biologic agents may [...] condition. If you are noted to have [place] Heart Failure Classification 3 or 4, tell [...] will be determined based on your insurance, chartered financial analyst if applicable or pharmacy industry copayment cards [...] any of your other providers or your rapid extractor operator. Side effects discussed at length to include but not limited to liver function abnormalities, WBC changes, lung fibrosis, oral ulcers, hair loss and flu like syndrome. Acute lung toxicity and acute toxicity causing decreased blood counts and pancytopenia. Risk of lymphoma is increased with intermediate use. Patient should limit, and preferably, abstain [...] 9:40 AM EDT Office Visit [place] [address] Barrett Jay MD Sensorineural hearing loss (SNHL) of both ears; Tympanic membrane perforation, left; Tympanic membrane retraction, right; H/O Meniere's disease 12/19/2024 9:00 AM EDT Office Visit Audiology at [address] [address] Yeimi Park, PhD Sensorineural hearing loss, bilateral [...] Jay MD CHEMISTRY ORDERABLES Performing Organization Address City/[facility]/ZIP Co de Phone Number [facility] [place] [address] * (ABNORMAL) Basic Metabolic Panel (non-fasting) (10/19/2019 4:55 AM EST) Glucose 169 65 - 199 mg/dL [facility] Comment:Diabetes: >=200 mg/d L plus symptoms Blood Urea Nitrogen 77(H) 8 - 18 mg/dL [facility] Creatinine 2.88(H) 0.70 - 1.20 mg/dL [facility] Sodium 139 135 - 145 mmol/L [facility] Potassium 3.3(L) 3.5 - 5.0 mmol/L [facility] Comment: Please note: ??Patients with WBC >100,000 may have falsely elevated Potassium levels. ??For accurate Potassium quantification in these patients send serum separator tube (gold top) for subsequent determinations. ??Contact the Clinical Chemistry Laboratory if there are any questions. Chloride 90(L) 98 - 107 mmol/L [facility] Carbon Dioxide 30 22 - 31 mmol/L [facility] Anion Gap 19(H) 5 - 15 mmol/L [facility] Calcium 10.2 8.5 - 10.5 mg/dL [facility] Est Glomerular Filtration Rate 16(L) >=60 mL/min/1. 73 m?? [facility] Comment: The eGFR was calculated using the CKD-EPI equation. As with all creatinine based estimates of kidney function, eGFR values calculated with the CKD-EPI equation are not accurate in patients with acute kidney failure, extremes of body mass or the acutely ill. [email or web address] eGFR 19(L) >=60 mL/min/1. 73 m?? [facility] Comment: The eGFR was calculated using the CKD-EPI equation. As with all creatinine based estimates of kidney function, eGFR values calculated with the CKD-EPI equation are not accurate in patients with acute kidney failure, extremes of body mass or the acutely ill. http://[facility] Blood specimen (specimen) 10/19/2019 4:55 AM EST 10/19/2019 5:40 AM EST Narrative Resulting Agency Comment Spec In Lab Dara Carreon MD CHEMISTRY ORDERABLES [facility] [address] [place] [address] * COLONOSCOPY (03/26/2019 6:43 AM EDT) COLONOSCOPY Patient Name: Tiffanie Stern Procedure Date: 03/26/2019 6:43 AM ?Attending MD: Lucho Ohara MD Date of : 1950 ?Order #: [id number] Age: 69 ?Instrument Name: [id number] Procedure: ? Colonoscopy Indications: ? Iron deficiency anemia Providers: ? Lucho Ohara MD, [place] ? Ama Krishna MD: ? Medicines: ? [...] Procedure Code(s): ?? --- Professional --- ? 94194, Colonoscopy, flexible; with ? biopsy, single or [...] ? abscess without bleeding CPT copyright 2017 [employer]. All rights reserved. The codes documented in this report are preliminary and upon strategic marketing manager review may be revised to meet current [...] and lumbar spine was performed with the healthfinch Discovery C DEXA Scanner. At the left [...] hip and lumbar spine wasperformed with the healthfinch Discovery C DEXA Scanner. At the left [...] Documents on File Type Date Recorded Patient Paramedic Rn Expl anation Advance Directives and Livin g Will 11/24/2010 4:05 PM * Full Code (Latest Code Status on File) Date Activated Date Inactivated Comments 10/12/2019 4:08 PM 10/19/2019 5:45 PM Question Answer Comments Does patient have capacity to make decision: Yes Care Teams Media Marketing Specialist Relationship Specialty Start Date End Date Benito Saucedo MD [address] [place] [phone] PCP - General 03/14/20
== END 2025-01-15 06:27 | disposition home or self-care (01) ==
LOC: CF 06:26
PROVIDERS: Visit Provider Anesthesiology
DX: M47.816 Spondylosis without myelopathy or radiculopathy, lumbar region (principal)
CPT/HCPCS: 64635; 64636; J2003; J2795; J3301

== ENCOUNTER 2025-01-15 08:57 | Outpatient (AMB) | payer MEDICARE, SELFPAY ==
[2025-01-15 09:14] VITALS: BP 132/56; PULSE 67; RESP 16; O2SAT 92
--- NOTE | 2025-01-15 09:14 | A.OFFVIS_ITS ---
Vital Signs 01/15/25 09:14 01/15/25 10:09 BP 132/56 L 147/54 H Blood Pressure Location Lt radial Lt radial Position Sitting Sitting Respiration 16 16 Pulse 67 53 Pulse Source Pulse Oximeter Pulse Oximeter Pulse Oximetry (%) 92 95 Oxygen Delivery Method Room Air Room Air Intake Visit Reasons: LEFT L3, L4, DRL5 MBB RFA/Valium&ativan Retail Link Analyst Required: No Allergies Penicillins Allergy (Unknown, Verified 01/15/25 09:14) Unknown Medication List - Last Reconciled 01/15/25 by Maricel Guerin LPN allopurinol mg PO alprazolam mg PO amlodipine 10 mg PO DAILY atorvastatin 40 mg PO DAILY carvedilol mg PO diazepam (Valium) 5 mg PO ONCE PRN gabapentin mg PO hydralazine mg PO insulin degludec (Tresiba FlexTouch U-100 insulin) units subcut leflunomide mg PO levothyroxine mcg PO oxycodone 10 mg PO ONCE PRN pantoprazole 40 mg PO DAILY PFSH Medical History (Updated 09/15/24 @ 22:38 by JULIO Cavanaugh) Chronic low back pain Severe obesity Diabetes Hypertension Surgical History (Updated 09/14/24 @ 09:28 by Tonia Henderson) Hx of joint replacement Physical Exam Vital Signs: Last Vital Signs Pulse 53 01/15/25 10:09 Resp 16 01/15/25 10:09 BP 147/54 H 01/15/25 10:09 Pulse Ox 95 01/15/25 10:09 Oxygen Delivery Method Room Air 01/15/25 10:09 Assessment & Plan Assessment & Plan (1) Spondylosis of lumbar region without myelopathy or radiculopathy: Code(s): M47.816 - Spondylosis without myelopathy or radiculopathy, lumbar region Category: Medical (2) Chronic low back pain: Code(s): M54.50 - Low back pain, unspecified; G89.29 - Other chronic pain Category: Medical Plan Radiofrequency ablation of medial branches L3,L4 dorsal ramus L5 left.? ? ?Informed consent was explained to the patient. All questions were explained and? answered.? The patient was taken inside the operating room where she was positioned prone on the operating table. Time-out was performed delineating correct site, side, the nature of the procedure, patient's allergy, . All operating room staff was participating in OR time-out procedure. ? ? The lower back was prepped with ChloraPrep and draped with sterile towels. Sterilely draped C-arm was brought over the operating field and sq picture of L4-, L5 vertebra and S1 AREA were delineated on the screen.? Point of interest were delineated as confluence of superior articular process of L4 and L5 vertebra on the leftt with corresponding transverse processes as well as confluence of the sacral alae on the left with superior articular process of S1.? The projection of the point of interest to the skin were injected with the small amount of local anesthetic lidocaine 2% mixed with ropivacaine 0.5% 1-1 approcimately 1 cc.? After that 18 gauge 100 mm radiofrequency cannula were driven to the point of interest under x-ray guidance. After needles gently contacted the bones at the point of interests, the stylettes were removed and the RFA probes were inserted. Motor stimulation was applied to each of the positioned separately. The patient denies motor stimulation in the lower extremities. After that the probes were removed and the needles were injected with small amount of mixture of lidocaine 2% mixed with Kenalog 10 mg equally divided among the all 3 needle insertion. After that the energy application was made using 89 degrees centigrade temperature and time 90 seconds. Upon completion of the 1st application of the energy the needles were rotated 180 degrees and application of the energy was repeated. Upon completion of the energy application the needles were removed and sterile Band-Aids were applied. The patient tolerated the procedure well. She was taken outside of the operating room to recovery room where she recovered uneventfully. Orders: Orders FL guidance in treatment room Today M47.816 - Spondylosis without myelopathy or radiculopathy, lumbar region Medications: New diazepam (Valium) please take 30minutes prior to arrival for procedure 5 mg PO ONCE PRN 1 tab 0RF sleep oxycodone take 30 minutes prior to arrival for procedure 10 mg PO ONCE PRN 1 tab 0RF pain Coding Level of Care Code Procedure Only Diagnoses Spondylosis of lumbar region without myelopathy or radiculopathy M47.816 Chronic low back pain M54.50; G89.29
--- OUTSIDE RECORDS SUMMARY | 2025-01-15 09:24 | XMS_ITS | Clinical Summary ---
Author Organization [facility] Address [address] [facility] [address] [place] [address] Phone Care Team Providers Care Crop Duster Helper Name Role Phone Benito Saucedo MD Primary Care Provider [phone] Allergies Active Allergy Reactions Criticality Noted Date [...] Diastolic heart failure 10/09/201906/26 Overview (02/29/2020): See [facility] discharge notes from 10/05/19. Lumbar spondylosis 06/27/2019 [...] and I will send this to her knitting inspector. If there is a determination for surgery [...] decision with her, primary care physician and knitting inspector all about best options for treatment. Explained this in detail. Rheumatoid arthritis 06/28/2017 021 Overview (11/18/2020): Last Assessment & Plan: We will discuss with her knitting inspector to see what my options are in [...] Communication [facility] [address] [place] [address] Holly Stone 12/13/2024 1:00 PM EDT Office Visit [facility] [address] [place] [phone] Garima Rodriguez DO Stage 3b chronic kidney disease (HCC) (Primary Dx); Type 2 diabetes mellitus with diabetic chronic kidney disease (HCC); Hypertension; Chronic diastolic congestive heart failure (HCC); Secondary hyperparathyroidism of renal origin (HCC) 11/28/2024 Orders Only [facility] [address] [address] Garima Rodriguez DO Stage 3b chronic kidney [...] Visit [facility] [address] [address] Garima Rodriguez, DO [address] [place] [address] Health Maintenance Due Date Last [...] Creatinine, Ur 129.9 Not Estab. mg/dL [facility] Albumin, Urine 15.9 Not Estab. ug/mL [facility] Albumin/Creatin ine Ratio 12 0 - 29 mg/g creat [facility] Comment: ? Normal: ?0 - ??29 ? Moderately increased: 30 - 300 ? Severely increased: ? >300 Urine (Urine, Clean Catch) 12/10/2024 9:44 AM EDT 12/10/2024 Garima Rodriguez DO LAB URINE ORDERABLES Final Re sult Performing Organization Address [facility] de Phone Number [facility] [address] [place] [address] * Vitamin D 25 hydroxy (12/10/2024 9:44 AM EDT) Vitamin D, 25-OH, Total 33.4 30.0 - 100.0 ng/mL [facility] Comment: Vitamin D deficiency has been defined by the [place] of Medicine and an Endocrine Society practice guideline as a level of serum 25-OH vitamin D less than 20 ng/mL (1,2). The Endocrine Society went on to further define vitamin D insufficiency as a level between 21 and 29 ng/mL (2). 1. IOM ([place] of Medicine). 2010. Dietary reference ?? intakes [...] ORDERABLES Final Re sult Performing Organization Address [facility] Co de Phone Number [facility] [address] [place] [address] * CBC (12/10/2024 9:44 AM EDT) WBC 8.1 3.4 - 10.8 x10E3/uL [facility] RBC 4.50 3.77 - 5.28 x10E6/uL [facility] Hemoglobin 13.4 11.1 - 15.9 g/dL [facility] Hematocrit 39.9 34.0 - 46.6 % [facility] MCV 89 79 - 97 fL [facility] MCH 29.8 26.6 - 33.0 pg [facility] MCHC 33.6 31.5 - 35.7 g/dL [facility] RDW 13.8 11.7 - 15.4 % [facility] Platelets 230 150 - 450 x10E3/uL [facility] Blood (Blood, Venous) 12/10/2024 9:44 AM EDT 12/10/2024 us Garima [employer] DO LAB BLOOD ORDERABLES Final Re sult [facility] [address] [place] [address] * (ABNORMAL) PTH, intact (12/10/2024 9:44 AM EDT) Pathologist [facility] PTH 210(H) 15 - 65 pg/mL [facility] Blood (Blood, Venous) 12/10/2024 9:44 AM EDT 12/10/2024 us Fonmatch DO LAB BLOOD ORDERABLES Final Re sult [facility] [address] [place] [address] * (ABNORMAL) Renal function panel (12/10/2024 9:44 AM EDT) Glucose 171(H) 70 - 99 mg/dL [facility] BUN 25 8 - 27 mg/dL [facility] Creatinine 1.62(H) 0.57 - 1.00 mg/dL [facility] eGFR CKD-EPI CR 2020 34(L) >59 mL/min/1.7 3 [facility] BUN/Creatinine Ratio 15 12 - 28 [facility] Sodium 145(H) 134 - 144 mmol/L [facility] Potassium 3.8 3.5 - 5.2 mmol/L [facility] Chloride 105 96 - 106 mmol/L [facility] Bicarbonate (CO2) 21 20 - 29 mmol/L [facility] Calcium 9.1 8.7 - 10.3 mg/dL [facility] Albumin 3.9 3.8 - 4.8 g/dL [facility] Phosphorus 2.7(L) 3.0 - 4.3 mg/dL [facility] Blood (Blood, Venous) 12/10/2024 9:44 AM EDT 12/10/2024 us Garima Rodriguez DO LAB BLOOD ORDERABLES Final Re sult [facility] [address] [place] [address] * (ABNORMAL) EXT RESULT ENTRY (01/26/2021) Sodium 138 137 - 147 Potassium 4.3 3.4 - 5.5 Chloride 91(A) 99 - 108 Bicarbonate (CO2) 29 22 - 30 mmol/L Anion Gap 18 <=30 MMOL/L Glucose 234(A) 60 - 200 BUN 57(A) 4 - 21 mg/dL Creatinine 2.50(A) 0.50 - 1.10 mg/dL Calcium 10.2 8.7 - 10.7 mg/dL eGFR Non-Afr Armenian 19 Magnesium 2.4 1.6 - 2.4 Hemoglobin A1C 8.2(A) 4.0 - 6.0 01/26/2021 us [facility] Provider LAB BLOOD ORDERABLES Yue l Result from Last 3 Months or Most Recently Relevant to Health Maintenance Insurance Medicare [facility] Medicare [facility] Care Teams Crop Duster Helper Relationship Specialty Start Date End Date Benito Saucedo MD [address] [place] [phone] PCP - General Family Medicine 11/18/20
--- OUTSIDE RECORDS SUMMARY | 2025-01-15 09:24 | XMS_ITS | Clinical Summary ---
Author Organization [facility] Address [address] [place] [address] Care Team Providers Care Lining Mechanic Name Role Phone Unavailable Primary Care Provider [...] topic Insurance MEDICARE PART A & B [facility]
--- OUTSIDE RECORDS SUMMARY | 2025-01-15 09:24 | XMS_ITS | Encounter Summary ---
Author Organization [facility] [place], Address [address] [place] [address] Phone Care Team Providers Care Agriculture Scientist Name Role Phone Benito Saucedo MD Primary Care Provider [phone] Encounter Details Date Type Department Care Team (Late st Contact Info) Description 11/28/2024 Orders Only [facility] [address] [place] [phone] Garima Rodriguez, [address] [place] [address] Stage 3b chronic kidney disease (HCC); Type [...] Visit [facility] [address] [place] [phone] RodriguezGarima, DO [address] [place] [address] documented as of this encounter Procedures [...] Glucose 171(H) 70 - 99 mg/dL [facility] BUN 25 8 - 27 mg/dL [facility] Creatinine 1.62(H) 0.57 - 1.00 mg/dL [facility] eGFR CKD-EPI CR 2020 34(L) >59 mL/min/1.7 3 [facility] BUN/Creatinine Ratio 15 12 - 28 [facility] Sodium 145(H) 134 - 144 mmol/L [facility] Potassium 3.8 3.5 - 5.2 mmol/L [facility] Chloride 105 96 - 106 mmol/L [facility] Bicarbonate (CO2) 21 20 - 29 mmol/L [facility] Calcium 9.1 8.7 - 10.3 mg/dL [facility] Albumin 3.9 3.8 - 4.8 g/dL [facility] Phosphorus 2.7(L) 3.0 - 4.3 mg/dL [facility] Blood (Blood, Venous) 12/10/2024 9:44 AM EDT 12/10/2024 us Garima Rodriguez DO LAB BLOOD ORDERABLES Final Re sult [facility] [address] [place] [address] * Vitamin D 25 hydroxy (12/10/2024 9:44 AM EDT) Vitamin D, 25-OH, Total 33.4 30.0 - 100.0 ng/mL [facility] Comment: Vitamin D deficiency has been defined by the [place] of Medicine and an Endocrine Society practice guideline as a level of serum 25-OH vitamin D less than 20 ng/mL (1,2). The Endocrine Society went on to further define vitamin D insufficiency as a level between 21 and 29 ng/mL (2). 1. IOM ([place] of Medicine). 2010. Dietary reference ?? intakes for calcium and D. [place]: The ?? National AcademMIT CSHub Press. 2. Santiago MF, Donovan [place], Arik CARIAS, et al. ?? Evaluation, treatment, and prevention of vitamin D ?? deficiency: an Endocrine Society clinical practice ?? guideline. JCEM. 2011 Mar; 96(7):1911-30. Blood (Blood, Venous) 12/10/2024 9:44 AM EDT 12/10/2024 us Garima Rodriguez DO LAB BLOOD ORDERABLES Final Re sult Performing Organization Address [facility] de Phone Number [facility] [address] [place] [address] * Urine Albumin / Creatinine Ratio (12/10/2024 9:44 AM EDT) Creatinine, Ur 129.9 Not Estab. mg/dL [facility] Albumin, Urine 15.9 Not Estab. ug/mL [facility] Albumin/Creatin ine Ratio 12 0 - 29 mg/g creat [facility] Comment: ? Normal: ?0 - ??29 ? Moderately increased: 30 - 300 ? Severely increased: ? >300 Urine (Urine, Clean Catch) 12/10/2024 9:44 AM EDT 12/10/2024 us Garima Rodriguez DO LAB URINE ORDERABLES Final Re sult Performing Organization Address [facility] de Phone Number [facility] [address] [place] [address] * (ABNORMAL) PTH, intact (12/10/2024 9:44 AM EDT) PTH 210(H) 15 - 65 pg/mL [facility] Blood (Blood, Venous) 12/10/2024 9:44 AM EDT 12/10/2024 us Garima Rodriguez DO LAB BLOOD ORDERABLES Final Re sult Performing Organization Address [facility] de Phone Number [facility] [address] [place] [address] * CBC (12/10/2024 9:44 AM EDT) WBC 8.1 3.4 - 10.8 x10E3/uL [facility] RBC 4.50 3.77 - 5.28 x10E6/uL [facility] Hemoglobin 13.4 11.1 - 15.9 g/dL [facility] Hematocrit 39.9 34.0 - 46.6 % [facility] MCV 89 79 - 97 fL [facility] MCH 29.8 26.6 - 33.0 pg [facility] MCHC 33.6 31.5 - 35.7 g/dL [facility] RDW 13.8 11.7 - 15.4 % [facility] Platelets 230 150 - 450 x10E3/uL [facility] Blood (Blood, Venous) 12/10/2024 9:44 AM EDT 12/10/2024 us Garima Rodriguez DO LAB BLOOD ORDERABLES Final Re sult [facility] [address] [place] [address] documented in this encounter Visit Diagnoses Diagnosis Stage 3b chronic kidney disease (HCC) Type 2 diabetes mellitus with diabetic chronic kidney disease (HCC) documented in this encounter Care Teams Agriculture Scientist Relationship Specialty Start Date End Date Benito Saucedo MD [address] [place] [phone] PCP - General Family Medicine 11/18/20 documented as of this encounter
--- OUTSIDE RECORDS SUMMARY | 2025-01-15 09:25 | XMS_ITS | Encounter Summary ---
Author Organization [facility] [place], Address [address] [place] [address] Phone Care Team Providers Care Swiss Type Screw Machine Operator Name Role Phone Benito Saucedo MD Primary Care Provider [phone] Encounter Details Date Type Department Care Team (Late st Contact Info) Description 12/09/2023 Documentation Only [facility], [address] [place] [address] Holly Stone [address] [place] [address] Social History Tobacco Use Types [...] Visit [facility] [place] [facility] [place] [address] [facility] [address] [place] [address] Garima Rodriguez DO [address] [place] [address] documented as of this encounter Visit Diagnoses Not on filedocumented in this encounter Care Teams Swiss Type Screw Machine Operator Relationship Specialty Start Date End Date Benito Saucedo MD [address] [place] [phone] PCP - General Family Medicine 11/18/20 documented as of this encounter
[2025-01-15 10:09] VITALS: BP 147/54; PULSE 53; RESP 16; O2SAT 95
== END 2025-01-15 10:09 | disposition home or self-care (01) ==
LOC: HO.PMCPRC 08:57
PROVIDERS: PCP Family Medicine; Visit Provider Anesthesiology
DX: M47.816 Spondylosis without myelopathy or radiculopathy, lumbar region (principal); M54.50 Low back pain, unspecified; G89.29 Other chronic pain
CPT/HCPCS: 64635; 64636

== ENCOUNTER 2025-02-05 11:20 | Outpatient (AMB) | payer MEDICARE, SELFPAY ==
--- NOTE | 2025-02-05 11:31 | MHC.OFFVIS ---
Vital Signs 02/05/25 11:37 Height 5 ft 3 in Weight 286 lb 6 oz BMI 50.7 BP 175/84 H Blood Pressure Location Lt brachial Position Sitting Pulse 72 Pulse Source Pulse Oximeter Pulse Oximetry (%) 98 Oxygen Delivery Method Room Air Intake Visit Reasons: BILATERAL L3, L4, L5 MBB RFA Intake Note: Pain today 01/03 Clinical Trial Data Manager Required: No Accompanied by: Self / Same As Patient Allergies Penicillins Allergy (Unknown, Verified 02/05/25 11:37) Unknown HPI Comments Details: The patient is a 74-year-old female presenting for follow-up after bilateral lumbar radiofrequency ablation. The right-side ablation occurred on January 08, and the left on January 15, targeting chronic low back pain primarily due to lumbar facet arthropathy. The patient previously underwent lumbar medial branch blocks at [facility], and lumbar medal branch RFA procedure was scheduled through our clinic. Currently, the patient reports a partial improvement, with overall pain reduced by approximately 60%. The pain is localized at the low back, worsened by bending and prolonged standing. Despite some improvement in her ability to stand, she continues to experience back pain that restricts her activities. We will proceed with updating her lumbar spine imaging to evaluate disc pathology, though the current relief suggests a predominant facet-related etiology. She reports increased walking capacity and tolerance since RFA procedure. Patient reports she continues to loose weight with dietary adjustments and Mounjaro injections. Patient has lost 14 lbs since August 2024. - Onset: Chronic, worsened in recent years - Quality and Character: Predominantly aching, localized at the waistline - Primary Location: Low back, with no significant leg pain reported - Relieving Factors: Radiofrequency ablation provided 60% relief - Exacerbating Factors: Standing for extended periods, bending activities - Interferes With: Prolonged standing and bending tasks - Affect: Patient does not report changes but notes limitation in activity. - Analgesia: Post-RFA pain reduced by 60%; no current reports on medication use. - Adverse Effects: No specific adverse effects reported. - Activities of Daily Living: Pain limits standing duration; improvement in standing time reported. - Aberrant Drug Related Behaviors: No evidence of misuse noted. Past Procedures: 01/08/25 (left) and 01/15/25 (right) Bilateral L3-L4 DR L5 MB RFA-60% ongoing pain relief PRIOR: Patient is a very pleasant 74 years old female with prior history of diabetes (A1C=7.5 ), morbid obesity (BMI=53.1), chronic low back pain, CKD stage 4, chronic fatigue and headaches, shortness of breath, JENNIFFER/BiPAP, arthritis, dizziness, presents today for potential lumbar medial branch RFA procedure. Denies any recent trauma, injury, falls. Patient was seen at [facility] and successfully underwent 2 positive diagnostic lumbar medial branch blocks in May and June 2024 with over 80% pain improvement for 24 hours each time. Patient reports functionality, mobility, and sleep have improved with diagnostic injections. Unfortunately she was unable to go forward with RFA procedure through [facility] facility as her BMI was too high per Anesthesiology at their Surgical center. She now presents for consideration of medial branch block RFA under sedation for chronic axial low back pain. Patient completed physical therapy in 05/15/24 with partial and temporary pain improvement. Denies any fever or chills, abdominal or groin pain, weakness, burning or tingling, radicular back pain, foot drop, bladder or bowel dysfunction or saddle anesthesia. Pain is rated at 7/10 with activities and movements and 5/10 with rest or sitting. Patient reports no difficulty with multiple procedures and surgeries under sedation except that she usually wakes with up with headache and nausea. Oswestry Low Back Pain Disability Score=19 (moderate disability) Location: Lower back pain, non-radiating Duration: Chronic pain >5 years Characteristics of symptom or complaint: Aching, sore, dull, heavy, hurting, sore Aggravating or associated factors: Movements, ADLs, ROM, standing, walking, cold weather changes Relieving factors: Sitting, rest, heat, Tylenol, rarely Ibuprofen (mostly avoid due to CKD) Treatment: PT, Chiropractor, injections [facility] Medical History Chronic low back pain Severe obesity Diabetes Hypertension Surgical History Hx of joint replacement Review of Systems Const Details: - Musculoskeletal: Reports chronic low back pain. - Neurological: Denies significant leg pain. All systems reviewed & are unremarkable except as noted in HPI and below Physical Exam Vital Signs: Last Vital Signs Pulse 72 02/05/25 11:37 BP 175/84 H 02/05/25 11:37 Pulse Ox 98 02/05/25 11:37 Oxygen Delivery Method Room Air 02/05/25 11:37 BMI result Body Mass Index 50.7 General: Appears afebrile. Morbidly obese. Alert and oriented. Mood and affect appropriate. Follows and participates in conversation appropriately. Respiratory effort is unlabored. No cough. Able to transition from sit to stand unassisted. Ambulates with bilaterally normal heel strike and toe off. General: Yes no CVA tenderness Back/Spine/Pelvis Other: Limited lumbar ROM due to pain and body habitus. Lumbar extension reproduces mild to moderate pain. Flexion reproduces moderate pain. Facet loading reproduces minimal pain bilaterally. Demonstrates 5/5 strength of quadriceps bilaterally as well as flexion/dorsiflexion of bilateral feet against resistance. 2+ pedal pulses bilaterally. Straight leg rise with dorsiflexion is negative bilaterally. Diminished patellar and achilles reflexes bilaterally. Limited Lionel?s, Pelvic compression and Stinchfield tests are negative bilaterally. No groin pain with I/E hip rotations. Valsalva maneuver negative. Back: no CVA tenderness Cervical Spine: cervical ROM normal, No Cervical spine scars present and No Cervical spine tenderness Thoracic/Lumbar Spine: thoracic and lumbar spine normal to inspection, No Thoracic/lumbar spine scar(s), Lasegue's sign negative, straight leg raise negative bilaterally, pain with thoraco-lumbar ROM, paraspinal muscle tenderness, No thoracic spinal tenderness and lumbar spinal tenderness (L3-S1) Sacroiliac joints: bilaterally nontender Assessment & Plan Assessment & Plan (1) Chronic low back pain: Code(s): M54.50 - Low back pain, unspecified; G89.29 - Other chronic pain Category: Medical (2) Spondylosis of lumbar region without myelopathy or radiculopathy: Code(s): M47.816 - Spondylosis without myelopathy or radiculopathy, lumbar region Category: Medical (3) Vertebrogenic low back pain: Code(s): M54.51 - Vertebrogenic low back pain Category: Medical (4) Morbid obesity with BMI of 50.0-59.9, adult: Code(s): E66.01 - Morbid (severe) obesity due to excess calories; Z68.43 - Body mass index [BMI] 50.0-59.9, adult Category: Medical Plan The patient's chronic low back pain, attributed to lumbar facet arthropathy, was managed post bilateral lumbar RFA. The procedure offered a 60% reduction in pain, but potential disc involvement is suspected due to increased pain with flexion forward and bending, and prolonged standing, warranting further evaluation with back x-rays. The potential duration of RFA relief was discussed, and she was advised to self-monitor symptoms and consult further if needed. Consideration of an MRI will depend upon the results and ongoing patient's symptoms, facilitating comprehensive management. All questions and concerns have been answered and patient agreed with the plan. Follow up for xray results and sooner as needed. Patient was informed and verbally consented to the use of an ambient scribe for clinic note documentation during this visit. Orders: Orders XR lumbar spine 6V w bending Today G89.29 - Other chronic pain, M47.816 - Spondylosis without myelopathy or radiculopathy, lumbar region, M54.50 - Low back pain, unspecified Patient Instructions: During our discussion, I explained that the patient's chronic low back pain was primarily related to lumbar facet arthropathy, for which bilateral RFA had been performed. This procedure provided significant, albeit partial, relief. We reviewed that back x-rays would be taken to assess potential disc involvement and evaluate alignment and stability. I also provided anticipatory guidance on the expected duration of relief post-ablation and planned further evaluation based on symptom progression and imaging results. Coding Level of Care Code Est Pt Level 4 (46496) Complex EM visit Add On G2211 Diagnoses Chronic low back pain M54.50; G89.29 Spondylosis of lumbar region without myelopathy or radiculopathy M47.816 Vertebrogenic low back pain M54.51 Morbid obesity with BMI of 50.0-59.9, adult E66.01; Z68.43
[2025-02-05 11:37] VITALS: BP 175/84; PULSE 72; O2SAT 98; BMI 50.7
--- OUTSIDE RECORDS SUMMARY | 2025-02-05 12:48 | XMS_ITS | Encounter Summary ---
Author Organization [facility], Address [address] [place] [address] Phone Care Team Providers Care Steam Heating Installer Name Role Phone Benito Saucedo MD Primary Care Provider [phone] Encounter Details Date Type Department Care Team (Late st Contact Info) Description 11/28/2024 Orders Only [facility] [address] [place] [phone] Garima Rodriguez, [address] [place] [address] Stage 3b chronic kidney disease (HCC); Type [...] Visit [facility] [address] [place] [phone] RodriguezGarima, DO [address] [place] [address] documented as of this encounter Procedures [...] Glucose 171(H) 70 - 99 mg/dL [facility] BUN 25 8 - 27 mg/dL [facility] Creatinine 1.62(H) 0.57 - 1.00 mg/dL [facility] eGFR CKD-EPI CR 2020 34(L) >59 mL/min/1.7 3 [facility] BUN/Creatinine Ratio 15 12 - 28 [facility] Sodium 145(H) 134 - 144 mmol/L [facility] Potassium 3.8 3.5 - 5.2 mmol/L [facility] Chloride 105 96 - 106 mmol/L [facility] Bicarbonate (CO2) 21 20 - 29 mmol/L [facility] Calcium 9.1 8.7 - 10.3 mg/dL [facility] Albumin 3.9 3.8 - 4.8 g/dL [facility] Phosphorus 2.7(L) 3.0 - 4.3 mg/dL [facility] Blood (Blood, Venous) 12/10/2024 9:44 AM EDT 12/10/2024 us Garima Rodriguez DO LAB BLOOD ORDERABLES Final Re sult [facility] [address] [place] [address] * Vitamin D 25 hydroxy (12/10/2024 9:44 AM EDT) Vitamin D, 25-OH, Total 33.4 30.0 - 100.0 ng/mL [facility] Comment: Vitamin D deficiency has been defined by the [place] of Medicine and an Endocrine Society practice guideline as a level of serum 25-OH vitamin D less than 20 ng/mL (1,2). The Endocrine Society went on to further define vitamin D insufficiency as a level between 21 and 29 ng/mL (2). 1. IOM ([place] of Medicine). 2010. Dietary reference ?? intakes for calcium and D. [place]: The ?? National AcademBackOps Press. 2. Santiago MF, Donovan [place], Arik CARIAS, et al. ?? Evaluation, treatment, and prevention of vitamin D ?? deficiency: an Endocrine Society clinical practice ?? guideline. JCEM. 2011 Mar; 96(7):1911-30. Blood (Blood, Venous) 12/10/2024 9:44 AM EDT 12/10/2024 us Garima Rodriguez DO LAB BLOOD ORDERABLES Final Re sult Performing Organization Address [facility] de Phone Number [facility] [address] [place] [address] * Urine Albumin / Creatinine Ratio (12/10/2024 9:44 AM EDT) Creatinine, Ur 129.9 Not Estab. mg/dL [facility] Albumin, Urine 15.9 Not Estab. ug/mL [facility] Albumin/Creatin ine Ratio 12 0 - 29 mg/g creat [facility] Comment: ? Normal: ?0 - ??29 ? Moderately increased: 30 - 300 ? Severely increased: ? >300 Urine (Urine, Clean Catch) 12/10/2024 9:44 AM EDT 12/10/2024 us Garima Rodriguez DO LAB URINE ORDERABLES Final Re sult Performing Organization Address [facility] de Phone Number [facility] [address] [place] [address] * (ABNORMAL) PTH, intact (12/10/2024 9:44 AM EDT) PTH 210(H) 15 - 65 pg/mL [facility] Blood (Blood, Venous) 12/10/2024 9:44 AM EDT 12/10/2024 us Garima Rodriguez DO LAB BLOOD ORDERABLES Final Re sult Performing Organization Address [facility] de Phone Number [facility] [address] [place] [address] * CBC (12/10/2024 9:44 AM EDT) WBC 8.1 3.4 - 10.8 x10E3/uL [facility] RBC 4.50 3.77 - 5.28 x10E6/uL [facility] Hemoglobin 13.4 11.1 - 15.9 g/dL [facility] Hematocrit 39.9 34.0 - 46.6 % [facility] MCV 89 79 - 97 fL [facility] MCH 29.8 26.6 - 33.0 pg [facility] MCHC 33.6 31.5 - 35.7 g/dL [facility] RDW 13.8 11.7 - 15.4 % [facility] Platelets 230 150 - 450 x10E3/uL [facility] Blood (Blood, Venous) 12/10/2024 9:44 AM EDT 12/10/2024 us Garima Rodriguez DO LAB BLOOD ORDERABLES Final Re sult [facility] [address] [place] [address] documented in this encounter Visit Diagnoses Diagnosis Stage 3b chronic kidney disease (HCC) Type 2 diabetes mellitus with diabetic chronic kidney disease (HCC) documented in this encounter Care Teams Steam Heating Installer Relationship Specialty Start Date End Date Benito Saucedo MD [address] [place] [phone] PCP - General Family Medicine 11/18/20 documented as of this encounter
--- OUTSIDE RECORDS SUMMARY | 2025-02-05 12:49 | XMS_ITS | Clinical Summary ---
Author Organization [facility] Address [address] [place] [address] Care Team Providers Care Fixture Maker Name Role Phone Unavailable Primary Care Provider [...] Density (Females,Ag es 65 and older) 02/26/2017 COVID-19 Vaccine ( - 2023-2 5 season) 2024 Influenza Vaccine 04/26/2025 RSV Vaccine 60 years and old er and Patients (1 - 1-dose 75+ series) 02/26/2027 Hepatitis B Vaccines Aged Out No long er eligible based on patient's age to complete this topic Insurance MEDICARE PART A & B [facility]
--- OUTSIDE RECORDS SUMMARY | 2025-02-05 12:49 | XMS_ITS | Clinical Summary ---
Author Organization [facility] Address [address] [place] [address] Phone Care Team Providers Care Senior Construction Project Manager Name Role Phone Benito Saucedo MD Primary Care Provider [phone] Allergies Active Allergy Reactions Criticality Noted Date [...] and I will send this to her termite treater helper. If there is a determination for surgery [...] decision with her, primary care physician and termite treater helper all about best options for treatment. Explained this in detail. Rheumatoid arthritis 06/28/2017 021 Overview (11/18/2020): Last Assessment & Plan: We will discuss with her termite treater helper to see what my options are in [...] Communication [facility] [address] [place] [address] Holly Stone 12/13/2024 1:00 PM EDT Office Visit [facility] [address] [place] [phone] Garima Rodriguez DO Stage 3b chronic kidney disease (HCC) (Primary Dx); Type 2 diabetes mellitus with diabetic chronic kidney disease (HCC); Hypertension; Chronic diastolic congestive heart failure (HCC); Secondary hyperparathyroidism of renal origin (HCC) 11/28/2024 Orders Only [facility] [address] [address] Garima Rodriguez DO Stage 3b chronic kidney [...] Visit [facility] [address] [address] Garima Rodriguez, DO [address] [place] [address] Health Maintenance Due Date Last [...] Creatinine, Ur 129.9 Not Estab. mg/dL [facility] Albumin, Urine 15.9 Not Estab. ug/mL [facility] Albumin/Creatin ine Ratio 12 0 - 29 mg/g creat [facility] Comment: ? Normal: ?0 - ??29 ? Moderately increased: 30 - 300 ? Severely increased: ? >300 Urine (Urine, Clean Catch) 12/10/2024 9:44 AM EDT 12/10/2024 Garima Rodriguez DO LAB URINE ORDERABLES Final Re sult Performing Organization Address [facility] de Phone Number [employer] [facility] [address] [place] [address] * Vitamin D 25 hydroxy (12/10/2024 9:44 AM EDT) Vitamin D, 25-OH, Total 33.4 30.0 - 100.0 ng/mL [facility] Comment: Vitamin D deficiency has been defined by the [place] of Medicine and an Endocrine Society practice guideline as a level of serum 25-OH vitamin D less than 20 ng/mL (1,2). The Endocrine Society went on to further define vitamin D insufficiency as a level between 21 and 29 ng/mL (2). 1. IOM ([place] of Medicine). 2010. Dietary reference ?? intakes [...] ORDERABLES Final Re sult Performing Organization Address [facility] Co de Phone Number [employer] [facility] [address] [place] [address] * CBC (12/10/2024 9:44 AM EDT) WBC 8.1 3.4 - 10.8 x10E3/uL [facility] RBC 4.50 3.77 - 5.28 x10E6/uL [facility] Hemoglobin 13.4 11.1 - 15.9 g/dL [facility] Hematocrit 39.9 34.0 - 46.6 % [facility] MCV 89 79 - 97 fL [facility] MCH 29.8 26.6 - 33.0 pg [facility] MCHC 33.6 31.5 - 35.7 g/dL [facility] RDW 13.8 11.7 - 15.4 % [facility] Platelets 230 150 - 450 x10E3/uL [facility] Blood (Blood, Venous) 12/10/2024 9:44 AM EDT 12/10/2024 us Garima [employer] DO LAB BLOOD ORDERABLES Final Re sult [facility] [address] [place] [address] * (ABNORMAL) PTH, intact (12/10/2024 9:44 AM EDT) Pathologist [facility] PTH 210(H) 15 - 65 pg/mL [facility] Blood (Blood, Venous) 12/10/2024 9:44 AM EDT 12/10/2024 us Daegis DO LAB BLOOD ORDERABLES Final Re sult [facility] [address] [place] [address] * (ABNORMAL) Renal function panel (12/10/2024 9:44 AM EDT) Glucose 171(H) 70 - 99 mg/dL [facility] BUN 25 8 - 27 mg/dL [facility] Creatinine 1.62(H) 0.57 - 1.00 mg/dL [facility] eGFR CKD-EPI CR 2020 34(L) >59 mL/min/1.7 3 [facility] BUN/Creatinine Ratio 15 12 - 28 [facility] Sodium 145(H) 134 - 144 mmol/L [facility] Potassium 3.8 3.5 - 5.2 mmol/L [facility] Chloride 105 96 - 106 mmol/L [facility] Bicarbonate (CO2) 21 20 - 29 mmol/L [facility] Calcium 9.1 8.7 - 10.3 mg/dL [facility] Albumin 3.9 3.8 - 4.8 g/dL [facility] Phosphorus 2.7(L) 3.0 - 4.3 mg/dL [facility] Blood (Blood, Venous) 12/10/2024 9:44 AM EDT 12/10/2024 us Garima Rodriguez DO LAB BLOOD ORDERABLES Final Re s[facility] [address] [place] [address] * (ABNORMAL) EXT RESULT ENTRY (01/26/2021) Sodium 138 137 - 147 Potassium 4.3 3.4 - 5.5 Chloride 91(A) 99 - 108 Bicarbonate (CO2) 29 22 - 30 mmol/L Anion Gap 18 <=30 MMOL/L Glucose 234(A) 60 - 200 BUN 57(A) 4 - 21 mg/dL Creatinine 2.50(A) 0.50 - 1.10 mg/dL Calcium 10.2 8.7 - 10.7 mg/dL eGFR Non-Afr Citizen Of The [place] 19 Magnesium 2.4 1.6 - 2.4 Hemoglobin A1C 8.2(A) 4.0 - 6.0 01/26/2021 us [facility] Provider LAB BLOOD ORDERABLES Yue l Result from Last 3 Months or Most Recently Relevant to Health Maintenance Insurance Medicare [facility] Medicare [facility] Care Teams Senior Construction Project Manager Relationship Specialty Start Date End Date Benito Saucedo MD [address] [place] [phone] PCP - General Family Medicine 11/18/20
--- OUTSIDE RECORDS SUMMARY | 2025-02-05 12:49 | XMS_ITS | Encounter Summary ---
Author Organization [facility], Address [address] [place] [address] Phone Care Team Providers Care Fsr Name Role Phone Benito Saucedo MD Primary Care Provider [phone] Encounter Details Date Type Department Care Team (Late st Contact Info) Description 12/09/2023 Documentation Only [facility], [address] [place] [address] Holly Stone [address] [place] [address] Social History Tobacco Use Types [...] Visit [facility] [place] [address] [facility] [address] [place] [address] Garima Rodriguez DO [address] [place] [address] documented as of this encounter Visit Diagnoses Not on filedocumented in this encounter Care Teams Fsr Relationship Specialty Start Date End Date Benito Saucedo MD [address] [place] [phone] PCP - General Family Medicine 11/18/20 documented as of this encounter
== END 2025-02-05 11:54 | disposition home or self-care (01) ==
LOC: HO.PMC 11:20
PROVIDERS: PCP Family Medicine; Visit Provider Nurse Practitioner Family
DX: M54.50 Low back pain, unspecified (principal); G89.29 Other chronic pain; M47.816 Spondylosis without myelopathy or radiculopathy, lumbar region; M54.51 Vertebrogenic low back pain; E66.01 Morbid (severe) obesity due to excess calories; Z68.43 Body mass index [BMI] 50.0-59.9, adult
CPT/HCPCS: 99214; G2211

== ENCOUNTER 2025-02-05 11:20 | Outpatient (REF) | payer MEDICARE, SELFPAY ==
--- NOTE | ~2025-02-05 | XR_ITS ---
CLINICAL HISTORY: M47.816 - Spondylosis without myelopathy or radiculopathy, lumbar region Lumbar spine 6 views Comparison: None Findings: No acute fracture or dislocation. Posterior alignment is normal. Diffuse severe degenerative change. No radiopaque foreign bodies. Impression: No acute processes This document has been electronically signed by: Jordi Tomlin MD on 02/05/2025 19:15:33
--- OUTSIDE RECORDS SUMMARY | 2025-02-05 13:22 | XMS_ITS | Encounter Summary ---
Author Organization [facility], Address [address] [place] [address] Phone Care Team Providers Care Monkey Trainer Name Role Phone Benito Saucedo MD Primary Care Provider [phone] Encounter Details Date Type Department Care Team (Late st Contact Info) Description 11/28/2024 Orders Only [facility] [address] [place] [id number] Garima Rodriguez, [address] [place] [address] Stage 3b chronic kidney disease (HCC); Type [...] Visit [facility] [address] [place] [phone] RodriguezGarima, DO [address] [facility] [place] [address] documented as of this encounter Procedures [...] Glucose 171(H) 70 - 99 mg/dL [facility] BUN 25 8 - 27 mg/dL [facility] Creatinine 1.62(H) 0.57 - 1.00 mg/dL [facility] eGFR CKD-EPI CR 2020 34(L) >59 mL/min/1.7 3 [facility] BUN/Creatinine Ratio 15 12 - 28 [facility] Sodium 145(H) 134 - 144 mmol/L [facility] Potassium 3.8 3.5 - 5.2 mmol/L [facility] Chloride 105 96 - 106 mmol/L [facility] Bicarbonate (CO2) 21 20 - 29 mmol/L [facility] Calcium 9.1 8.7 - 10.3 mg/dL [facility] Albumin 3.9 3.8 - 4.8 g/dL [facility] Phosphorus 2.7(L) 3.0 - 4.3 mg/dL [facility] Blood (Blood, Venous) 12/10/2024 9:44 AM EDT 12/10/2024 us Garima Rodriguez DO LAB BLOOD ORDERABLES Final Re sult [facility] [address] [place] [address] * Vitamin D 25 hydroxy (12/10/2024 9:44 AM EDT) Vitamin D, 25-OH, Total 33.4 30.0 - 100.0 ng/mL [facility] Comment: Vitamin D deficiency has been defined by the [place] of Medicine and an Endocrine Society practice guideline as a level of serum 25-OH vitamin D less than 20 ng/mL (1,2). The Endocrine Society went on to further define vitamin D insufficiency as a level between 21 and 29 ng/mL (2). 1. IOM ([place] of Medicine). 2010. Dietary reference ?? intakes for calcium and D. [place]: The ?? National AcademScandlines Press. 2. Santiago MF, Donovan [place], Arik CARIAS, et al. ?? Evaluation, treatment, and prevention of vitamin D ?? deficiency: an Endocrine Society clinical practice ?? guideline. JCEM. 2011 Mar; 96(7):1911-30. Blood (Blood, Venous) 12/10/2024 9:44 AM EDT 12/10/2024 us Garima Rodriguez DO LAB BLOOD ORDERABLES Final Re sult Performing Organization Address [facility] de Phone Number [facility] [address] [place] [address] * Urine Albumin / Creatinine Ratio (12/10/2024 9:44 AM EDT) Creatinine, Ur 129.9 Not Estab. mg/dL [facility] Albumin, Urine 15.9 Not Estab. ug/mL [facility] Albumin/Creatin ine Ratio 12 0 - 29 mg/g creat [facility] Comment: ? Normal: ?0 - ??29 ? Moderately increased: 30 - 300 ? Severely increased: ? >300 Urine (Urine, Clean Catch) 12/10/2024 9:44 AM EDT 12/10/2024 us Garima Rodriguez DO LAB URINE ORDERABLES Final Re sult Performing Organization Address [facility] de Phone Number [facility] [address] [place] [address] * (ABNORMAL) PTH, intact (12/10/2024 9:44 AM EDT) PTH 210(H) 15 - 65 pg/mL [facility] Blood (Blood, Venous) 12/10/2024 9:44 AM EDT 12/10/2024 us Garima Rodriguez DO LAB BLOOD ORDERABLES Final Re sult Performing Organization Address [facility] de Phone Number [facility] [address] [place] [address] * CBC (12/10/2024 9:44 AM EDT) WBC 8.1 3.4 - 10.8 x10E3/uL [facility] RBC 4.50 3.77 - 5.28 x10E6/uL [facility] Hemoglobin 13.4 11.1 - 15.9 g/dL [facility] Hematocrit 39.9 34.0 - 46.6 % [facility] MCV 89 79 - 97 fL [facility] MCH 29.8 26.6 - 33.0 pg [facility] MCHC 33.6 31.5 - 35.7 g/dL [facility] RDW 13.8 11.7 - 15.4 % [facility] Platelets 230 150 - 450 x10E3/uL [facility] Blood (Blood, Venous) 12/10/2024 9:44 AM EDT 12/10/2024 us Garima Rodriguez DO LAB BLOOD ORDERABLES Final Re sult [facility] [address] [place] [address] documented in this encounter Visit Diagnoses Diagnosis Stage 3b chronic kidney disease (HCC) Type 2 diabetes mellitus with diabetic chronic kidney disease (HCC) documented in this encounter Care Teams Monkey Trainer Relationship Specialty Start Date End Date Benito Saucedo MD [address] [place] [phone] PCP - General Family Medicine 11/18/20 documented as of this encounter
--- OUTSIDE RECORDS SUMMARY | 2025-02-05 13:23 | XMS_ITS | Encounter Summary ---
Author Organization [facility], Address [address] [place] [address] Phone Care Team Providers Care Auto Seat Cover Installer Name Role Phone Benito Saucedo MD Primary Care Provider [phone] Encounter Details Date Type Department Care Team (Late st Contact Info) Description 12/09/2023 Documentation Only [facility], [address] [place] [address] Holly Stone [address] [place] [address] Social History Tobacco Use Types [...] Visit [facility] [place] [facility] [place] [address] [facility] [address] [place] [address] Garima Rodriguez DO [address] [place] [address] documented as of this encounter Visit Diagnoses Not on filedocumented in this encounter Care Teams Auto Seat Cover Installer Relationship Specialty Start Date End Date Benito Saucedo MD [address] [place] [phone] PCP - General Family Medicine 11/18/20 documented as of this encounter
--- OUTSIDE RECORDS SUMMARY | 2025-02-05 13:23 | XMS_ITS | Clinical Summary ---
Author Organization [facility] Address [address] [place] [address] Care Team Providers Care Teacher Emotionally Impaired Name Role Phone Unavailable Primary Care Provider [...] topic Insurance MEDICARE PART A & B [facility]
--- OUTSIDE RECORDS SUMMARY | 2025-02-05 13:23 | XMS_ITS | Clinical Summary ---
Author Organization [facility] Address [address] [facility] [address] [place] [address] Phone Care Team Providers Care Insole Toe Snipping Machine Operator Name Role Phone Benito Saucedo MD Primary Care Provider [phone] Allergies Active Allergy Reactions Criticality Noted Date [...] Diastolic heart failure 10/09/201906/26 Overview (02/29/2020): See [facility] discharge notes from 10/05/19. Lumbar spondylosis [...] and I will send this to her factory maintenance technician. If there is a determination for surgery [...] decision with her, primary care physician and factory maintenance technician all about best options for treatment. Explained this in detail. Rheumatoid arthritis 06/28/2017 021 Overview (11/18/2020): Last Assessment & Plan: We will discuss with her factory maintenance technician to see what my options are in [...] Communication [facility] [address] [place] [address] Holly Stone 12/13/2024 1:00 PM EDT Office Visit [facility] [address] [place] [phone] Garima Rodriguez DO Stage 3b chronic kidney disease (HCC) (Primary Dx); Type 2 diabetes mellitus with diabetic chronic kidney disease (HCC); Hypertension; Chronic diastolic congestive heart failure (HCC); Secondary hyperparathyroidism of renal origin (HCC) 11/28/2024 Orders Only [facility] [address] [address] Garima Rodriguez DO Stage 3b chronic kidney [...] Visit [facility] [address] [phone] Garima Rodriguez, DO [address] [place] [address] Health Maintenance Due Date Last [...] Creatinine, Ur 129.9 Not Estab. mg/dL [facility] Albumin, Urine 15.9 Not Estab. ug/mL [facility] Albumin/Creatin ine Ratio 12 0 - 29 mg/g creat [facility] Comment: ? Normal: ?0 - ??29 ? Moderately increased: 30 - 300 ? Severely increased: ? >300 Urine (Urine, Clean Catch) 12/10/2024 9:44 AM EDT 12/10/2024 Garima Rodriguez DO LAB URINE ORDERABLES Final Re sult Performing Organization Address [facility] de Phone Number [employer] [facility] [address] [place] [address] * Vitamin D 25 hydroxy (12/10/2024 9:44 AM EDT) Vitamin D, 25-OH, Total 33.4 30.0 - 100.0 ng/mL [facility] Comment: Vitamin D deficiency has been defined by the [place] of Medicine and an Endocrine Society practice guideline as a level of serum 25-OH vitamin D less than 20 ng/mL (1,2). The Endocrine Society went on to further define vitamin D insufficiency as a level between 21 and 29 ng/mL (2). 1. IOM ([place] of Medicine). 2010. Dietary reference ?? intakes [...] ORDERABLES Final Re sult Performing Organization Address [facility] de Phone Number [facility] [facility] [address] [place] [address] * CBC (12/10/2024 9:44 AM EDT) WBC 8.1 3.4 - 10.8 x10E3/uL [facility] RBC 4.50 3.77 - 5.28 x10E6/uL [facility] Hemoglobin 13.4 11.1 - 15.9 g/dL [facility] Hematocrit 39.9 34.0 - 46.6 % [facility] MCV 89 79 - 97 fL [facility] MCH 29.8 26.6 - 33.0 pg [facility] MCHC 33.6 31.5 - 35.7 g/dL [facility] RDW 13.8 11.7 - 15.4 % [facility] Platelets 230 150 - 450 x10E3/uL [facility] Blood (Blood, Venous) 12/10/2024 9:44 AM EDT 12/10/2024 us Garima Velteo DO LAB BLOOD ORDERABLES Final Re sult [facility] [address] [place] [address] * (ABNORMAL) PTH, intact (12/10/2024 9:44 AM EDT) Pathologist [facility] PTH 210(H) 15 - 65 pg/mL [facility] Blood (Blood, Venous) 12/10/2024 9:44 AM EDT 12/10/2024 us [employer] DO LAB BLOOD ORDERABLES Final Re sult [facility] [address] [place] [address] * (ABNORMAL) Renal function panel (12/10/2024 9:44 AM EDT) Glucose 171(H) 70 - 99 mg/dL [facility] BUN 25 8 - 27 mg/dL [facility] Creatinine 1.62(H) 0.57 - 1.00 mg/dL [facility] eGFR CKD-EPI CR 2020 34(L) >59 mL/min/1.7 3 [facility] BUN/Creatinine Ratio 15 12 - 28 [facility] Sodium 145(H) 134 - 144 mmol/L [facility] Potassium 3.8 3.5 - 5.2 mmol/L [facility] Chloride 105 96 - 106 mmol/L [facility] Bicarbonate (CO2) 21 20 - 29 mmol/L [facility] Calcium 9.1 8.7 - 10.3 mg/dL [facility] Albumin 3.9 3.8 - 4.8 g/dL [facility] Phosphorus 2.7(L) 3.0 - 4.3 mg/dL [facility] Blood (Blood, Venous) 12/10/2024 9:44 AM EDT 12/10/2024 us Garima Rodriguez DO LAB BLOOD ORDERABLES Final Re [facility] [address] [place] [address] * (ABNORMAL) EXT RESULT ENTRY (01/26/2021) Sodium 138 137 - 147 Potassium 4.3 3.4 - 5.5 Chloride 91(A) 99 - 108 Bicarbonate (CO2) 29 22 - 30 mmol/L Anion Gap 18 <=30 MMOL/L Glucose 234(A) 60 - 200 BUN 57(A) 4 - 21 mg/dL Creatinine 2.50(A) 0.50 - 1.10 mg/dL Calcium 10.2 8.7 - 10.7 mg/dL eGFR Non-Afr [place] 19 Magnesium 2.4 1.6 - 2.4 Hemoglobin A1C 8.2(A) 4.0 - 6.0 01/26/2021 us [facility] Provider LAB BLOOD ORDERABLES Yue l Result from Last 3 Months or Most Recently Relevant to Health Maintenance Insurance Medicare [facility] Medicare [facility] Care Teams Insole Toe Snipping Machine Operator Relationship Specialty Start Date End Date Benito Saucedo MD [address] [place] [id number] PCP - General Family Medicine 11/18/20
== END 2025-02-05 11:21 | disposition home or self-care (01) ==
LOC: HO.XRAY 11:20
PROVIDERS: PCP Family Medicine; Visit Provider Nurse Practitioner Family
DX: M47.816 Spondylosis without myelopathy or radiculopathy, lumbar region (principal); G89.29 Other chronic pain; M54.51 Vertebrogenic low back pain; E66.01 Morbid (severe) obesity due to excess calories; Z68.43 Body mass index [BMI] 50.0-59.9, adult
CPT/HCPCS: 72114; 99212

== ENCOUNTER → 2025-02-05 12:10 | Outpatient (BNV) | payer MEDICARE, SELFPAY | PROVIDERS: PCP Family Medicine; Visit Provider Radiology Diagnostic Radiology | DX: M47.816 Spondylosis without myelopathy or radiculopathy, lumbar region (principal) | CPT/HCPCS: 72114 ==

== ENCOUNTER 2025-04-16 10:49 | Outpatient (AMB) | payer MEDICARE, SELFPAY ==
[2025-04-16 10:50] VITALS: BMI 50.8
--- NOTE | 2025-04-16 10:50 | MHC.OFFVIS ---
Vital Signs 04/16/25 10:50 Height 5 ft 3 in Weight 287 lb BMI 50.8 Intake Visit Reasons: MRI results Allergies Penicillins Allergy (Unknown, Verified 04/16/25 10:50) Unknown HPI Comments Details: The patient is a 75-year-old female presenting via telehealth with low back pain and lumbar spine MRI review. The back pain has remained consistent since the last visit and is primarily localized to the back, with no significant radiation to the legs. The patient has a history of radiofrequency ablation, which did not provide significant relief. Patient reports intermittent heaviness in the legs but denies consistent weakness or numbness. Pain affects her daily activities and functioning, mobility and sleep. The MRI revealed moderate-severe disc degeneration L1-2 through L5-S1 with Modic changes affecting L3-4, L4-5 and L5-S1 endplates specifically. L5-S1, severe disc height loss with broad discosteophyte encroaching upon transiting S1 nerves. Severe right/moderate left biforaminal narrowing with greater impingement of exiting right L5 nerve and L4-5, subarticular 7 x 11 mm disc extrusion impinges traversing left L5 nerve. Mild-moderate spinal canal and mild left foraminal narrowing result. She has a history of diabetes with a recent HbA1c of 6.9, and experiences neuropathy in her feet. Denies any recent cough, cold, infection, fever or any significant changes in medical history since last office visit. PRIOR: The patient is a 74-year-old female presenting for follow-up after bilateral lumbar radiofrequency ablation. The right-side ablation occurred on January 08, and the left on January 15, targeting chronic low back pain primarily due to lumbar facet arthropathy. The patient previously underwent lumbar medial branch blocks at [facility], and lumbar medal branch RFA procedure was scheduled through our clinic. Currently, the patient reports a partial improvement, with overall pain reduced by approximately 60%. The pain is localized at the low back, worsened by bending and prolonged standing. Despite some improvement in her ability to stand, she continues to experience back pain that restricts her activities. We will proceed with updating her lumbar spine imaging to evaluate disc pathology, though the current relief suggests a predominant facet-related etiology. She reports increased walking capacity and tolerance since RFA procedure. Patient reports she continues to loose weight with dietary adjustments and Mounjaro injections. Patient has lost 14 lbs since August 2024. - Onset: Chronic, worsened in recent years - Quality and Character: Predominantly aching, localized at the waistline - Primary Location: Low back, with no significant leg pain reported - Relieving Factors: Radiofrequency ablation provided 60% relief - Exacerbating Factors: Standing for extended periods, bending activities - Interferes With: Prolonged standing and bending tasks - Affect: Patient does not report changes but notes limitation in activity. - Analgesia: Post-RFA pain reduced by 60%; no current reports on medication use. - Adverse Effects: No specific adverse effects reported. - Activities of Daily Living: Pain limits standing duration; improvement in standing time reported. - Aberrant Drug Related Behaviors: No evidence of misuse noted. Past Procedures: 01/08/25 (left) and 01/15/25 (right) Bilateral L3-L4 DR L5 MB RFA-60% ongoing pain relief PRIOR: Patient is a very pleasant 74 years old female with prior history of diabetes (A1C=7.5 ), morbid obesity (BMI=53.1), chronic low back pain, CKD stage 4, chronic fatigue and headaches, shortness of breath, JENNIFFER/BiPAP, arthritis, dizziness, presents today for potential lumbar medial branch RFA procedure. Denies any recent trauma, injury, falls. Patient was seen at [facility] and successfully underwent 2 positive diagnostic lumbar medial branch blocks in May and June 2024 with over 80% pain improvement for 24 hours each time. Patient reports functionality, mobility, and sleep have improved with diagnostic injections. Unfortunately she was unable to go forward with RFA procedure through [facility] facility as her BMI was too high per Anesthesiology at their Surgical center. She now presents for consideration of medial branch block RFA under sedation for chronic axial low back pain. Patient completed physical therapy in 05/15/24 with partial and temporary pain improvement. Denies any fever or chills, abdominal or groin pain, weakness, burning or tingling, radicular back pain, foot drop, bladder or bowel dysfunction or saddle anesthesia. Pain is rated at 7/10 with activities and movements and 5/10 with rest or sitting. Patient reports no difficulty with multiple procedures and surgeries under sedation except that she usually wakes with up with headache and nausea. Oswestry Low Back Pain Disability Score=19 (moderate disability) Location: Lower back pain, non-radiating Duration: Chronic pain >5 years Characteristics of symptom or complaint: Aching, sore, dull, heavy, hurting, sore Aggravating or associated factors: Movements, ADLs, ROM, standing, walking, cold weather changes Relieving factors: Sitting, rest, heat, Tylenol, rarely Ibuprofen (mostly avoid due to CKD) Treatment: PT, Chiropractor, injections PFSH Medical History Chronic low back pain Severe obesity Diabetes Hypertension Surgical History Hx of joint replacement Review of Systems Const All systems reviewed & are unremarkable except as noted in HPI and below ENT Reports Normal hearing present Neuro Reports Normal hearing present and Denies confusion Psych Denies confusion Physical Exam Const General: cooperative, alert and awake; No confusion Orientation/consciousness: patient oriented x3 and No confusion Resp Effort & Inspection: able to speak in complete sentences, no audible wheezes and no cough Neuro General: patient oriented x3 and No confusion Cranial nerves: Yes Normal hearing present Cognition (Neuro): normal cognition Psych Mental Status: mental status grossly normal Speech and movement: Clear speech present Affect: normal affect Attitude: cooperative Thought process: Normal thought process present Thought content: Normal thought content present and No Depressive thoughts present Insight: Good insight present (Psych) Judgement: Good judgement present (Psych) Telehealth Telehealth Telehealth Platform: Telephone Location of provider rendering services: practice address Location of patient: address on file Patient Identification confirmed using: Name, : Yes Telehealth method: voice only Patient verbally consented to treatment: Yes Patient verbally consented to billing insurance company: Yes Patient informed of any privacy concerns related to visit: Yes Minutes spent on Phone/Video with Pt.: 14 Results Reviewed Results Reviewed: MRI LUMBAR SPINE WITHOUT CONTRAST 03/13/25 CLINICAL INFORMATION: Vertebrogenic low back pain. Lumbar spondylosis TECHNICAL INFORMATION: 1. Sagittal and axial T1. 2. Sagittal and axial T2. 3. Sagittal STIR. SEDATION:?None. COMPARISON: No existing relevant imaging immediately accessible. INTERPRETATION: The conus shows normal tapering and ends at L1. Included cord has normal internal signal and cauda equina is unremarkable. No spinal canal collections or intradural masses. Maintained lordotic curvature, preserved vertebral body heights. No evidence of fractures or significant segmental subluxations. Multilevel discogenic endplate changes seen with Modic I findings predominating at L3-4, more chronic Modic II at L4-5, L5-S1. There are Schmorl's nodes spanning L1-2 through L5-S1. Severe disc height loss with mineralization crossing endplates at T12-L1, T11-12. L5-S1: Severe disc degeneration, broad posterior discosteophyte, ligamentous hypertrophy and mild facet joint arthrosis. Subarticular recesses narrowed with transiting S1 nerve roots bilaterally abutted. Severe right/moderate left biforaminal stenoses due to disc osteophytes. Greater right than left impingement of exiting L5 nerves. L4-5: Moderate to severe disc degeneration with cranially dissecting, left subarticular 7 x 11 mm disc extrusion (axial image 27 series 8; sagittal image 9 series 5). Left subarticular recess severely narrowed. Findings are compounded by mild facet joint arthrosis resulting in overall mild to moderate spinal canal and mild left foraminal narrowing. Exiting left L4 nerve contacted without compression. L3-4: Moderate to severe disc degeneration, posterior bulge and mild facet joint arthrosis resulting in mild spinal canal and biforaminal narrowing. No neural impingement. L2-3: Moderate to severe disc degeneration with posterior bulge but no protrusion, significant spinal canal or foraminal narrowing. L1-2: Moderate disc degeneration with posterior bulge, no disc protrusion, significant spinal canal or foraminal narrowing. T12-L1 and T11-12: Severe disc height loss with ankylosis at both levels. No posterior disc contour abnormality, significant spinal canal or foraminal narrowing. No prevertebral/paraspinous soft tissue masses or collections. Included pelvis intact and marrow signal normal. Superior portions of sacroiliac joints show no effusions, subarticular edema or sclerosis. CONCLUSION: 1. Moderate-severe disc degeneration L1-2 through L5-S1 with Modic changes affecting L3-4, L4-5 and L5-S1 endplates specifically. 2. L5-S1, severe disc height loss with broad discosteophyte encroaching upon transiting S1 nerves. Severe right/moderate left biforaminal narrowing with greater impingement of exiting right L5 nerve. 3. L4-5, subarticular 7 x 11 mm disc extrusion impinges traversing left L5 nerve. Mild-moderate spinal canal and mild left foraminal narrowing result. Assessment & Plan Assessment & Plan (1) Chronic low back pain: Code(s): M54.50 - Low back pain, unspecified; G89.29 - Other chronic pain Category: Medical (2) Spondylosis of lumbar region without myelopathy or radiculopathy: Code(s): M47.816 - Spondylosis without myelopathy or radiculopathy, lumbar region Category: Medical (3) Vertebrogenic low back pain: Code(s): M54.51 - Vertebrogenic low back pain Category: Medical (4) Morbid obesity with BMI of 50.0-59.9, adult: Code(s): E66.01 - Morbid (severe) obesity due to excess calories; Z68.43 - Body mass index [BMI] 50.0-59.9, adult Category: Medical (5) Lumbar disc herniation: Code(s): M51.26 - Other intervertebral disc displacement, lumbar region Category: Medical (6) Lumbar spinal stenosis: Code(s): M48.061 - Spinal stenosis, lumbar region without neurogenic claudication Category: Medical Plan Given the significant findings on the MRI, including the disc herniation and spinal stenosis, a referral to Neurosurgeon is recommended for further evaluation and management. The patient will be referred to [place] [facility] [place] in [place], as per her preference for location. She currently resides in [place]. Patient is aware to call if pain worsens or if she develops any red flag symptoms to seek emergency care. Patient denies any cauda equina syndrome symptoms at this time. All questions and concerns have been answered and patient agreed with the plan. Follow up for xray results and sooner as needed. Patient was informed and verbally consented to the use of an ambient scribe for clinic note documentation during this visit. Orders: Referrals Neurosurgery Referral M48.061 - Spinal stenosis, lumbar region without neurogenic claudication, M51.26 - Other intervertebral disc displacement, lumbar region, M54.51 - Vertebrogenic low back pain Coding Level of Care Code Tele Est Pt Level 4 (24922) Diagnoses Chronic low back pain M54.50; G89.29 Spondylosis of lumbar region without myelopathy or radiculopathy M47.816 Vertebrogenic low back pain M54.51 Morbid obesity with BMI of 50.0-59.9, adult E66.01; Z68.43 Lumbar disc herniation M51.26 Lumbar spinal stenosis M48.061
--- OUTSIDE RECORDS SUMMARY | 2025-04-16 12:06 | XMS_ITS | Clinical Summary ---
Author Organization [facility] Address [address] [place] [address] Care Team Providers Care Fire Hydrant Mechanic Name Role Phone Wil Rasmussen MD Primary Care Provider [phone] Social History Tobacco Use Types Packs/Day Years Used Date Smoking Tobacco: Never Assessed Comments Unknown Sex and Gender Information Value Date Recorded Sex Assigned at Not on file Legal Sex Female 18:21 EST Gender Identity Not on file Sexual Orientation Not on file Plan of Treatment Health Maintenance Due Date Last Done Comments Hepatitis C Screen 1950 Fall Risk Screening 02/26/2017 COVID-19 Vaccine (2023- season) 2024 RSV Immunization ( o r 60+ Years) (1 - 1-dose 75+ series) 02/26/2027 Care Teams Fire Hydrant Mechanic Relationship Specialty Start Date End Date Wil Rasmussen MD [address] [facility] [address] [place] [address] PCP - General 08/05/15
--- OUTSIDE RECORDS SUMMARY | 2025-04-16 12:06 | XMS_ITS | Clinical Summary ---
[place] [address] Care Team Providers Care Boilermaker Welder Name Role Phone Benito Saucedo MD Primary Care Provider [phone] Allergies Active Allergy Reactions Criticality Noted Date Comments Dominguez Inhibitors 02/13/2015 Other reaction(s): Cough Beta-Blockers (Beta-Adrenergic Blocking Agts) High 06/06/2023 SYMPTOMATIC BRADYCARDIA Chromium 07/14/2021 Citalopram 07/14/2021 QT prolongation Copper 02/13/2015 Other reaction(s): Unknown Allergy tested positive Empagliflozin 12/13/2023 Other Reaction(s): Other (see comments) Causes BRIANNE Gold Au 198 02/13/2015 Other reaction(s): Unknown Allergy tested positive Gold Keratinate Other (See Comments) 02/13/2015 Allergy tested positive Losartan High 06/06/2023 Other Reaction(s): Other (see comments) Severe cough with both DOMINGUEZ and ARB Penicillins Other (See Comments) 03/27/2014 Other reaction(s): Unknown Allergy tested positive Other reaction(s): other HAD A ALLERGY TEST AND WAS POSITIVE FOR PCN - UNKNOWN REACTION Medications nystatin (MYCOSTATIN) CreamIndications: Fungal infection Apply topically 2 times daily. 30 g 3 06/22/20 18 Active ketoconazole (NIZORAL) 2 % Cream Apply topically daily. Apply to the affected area twice daily. 30 g 2 11/30/19 19 Active pantoprazole (PROTONIX) 40 mg Tablet, Delayed Release (E.C.) Take 1 tablet by mouth daily. 90 tablet 3 04/17/20 19 Active torsemide (Demadex) 20 mg Tablet Take 20 mg by mouth every other day. Active hydrALAZINE (Apresoline) 25 mg Tablet Take 25 mg by mouth 3 times daily. Active allopurinoL (Zyloprim) 100 mg TabletIndications :High risk medication use,Acute gout due to renal impairment involving left foot,Rheumatoid arthritis of multiple sites with negative rheumatoid factor TAKE 2 TABLETS EVERY DAY 60 tablet 06/29/20 21 Active augmented betamethasone dipropionate (Diprolene-AF) 0.05 % CreamIndications: Venous stasis dermatitis of both lower extremities apply twice a day to affected areas of the legs for 2 weeks 150 g 1 07/09/20 21 Active levothyroxine (Synthroid) 100 mcg Tablet Take 100 mcg by mouth daily. 10/26/19 22 Active leflunomide (Arava) 20 mg Tablet 09/30/19 22 Active NovoLOG Flexpen U-100 Insulin 100 unit/mL (3 mL) Insulin Pen 11/25/19 22 Active gabapentin (Neurontin) 300 mg Capsule Take 300 mg by mouth 3 times daily. 12/09/19 22 Active carvediloL (Coreg) 25 mg Tablet Take 25 mg by mouth 2 times daily (with meals). 10/15/19 22 Active amLODIPine (Norvasc) 10 mg Tablet Take 10 mg by mouth daily. 11/02/19 22 Active meclizine (Antivert) 25 mg tablet 07/20/20 Active butalbital-acetam inophen-caffeine- codeine (Fioricet with Codeine) 61-616-31-30 mg capsule 09/21/20 Active azithromycin (Zithromax) 500 mg tablet Take 500 mg by mouth as needed (for dental procedures). 09/21/20 Active triamcinolone (Kenalog) 0.1 % CreamIndications: Asteatotic eczema Apply to affected areas twice daily for two weeks, then take one week off and repeat as needed 453.6 g 3 12/26/19 24 Active Insulin Tresiba FlexTouch U-100 100 unit/mL (3 mL) Insulin Pen See Instructions, 66u daily - replacing lantus, # 60 mL, 3 Refills, Maintenance, 12/23/23 9:40:00 EDT, [facility] Mail Delivery, Partial fill upon patient request if the prescription is for a schedule II opioid drug., 158, cm, 12/12/23 16:35:... 12/23/19 Active cholecalciferoL (Vitamin D3) 1,000 unit tablet Take 1,000 Units by mouth daily. Active aspirin EC 81 mg EC (DR) tablet Take 81 mg by mouth. 12/04/19 Active Mounjaro 5 mg/0.5 mL Pen Injector See Instructions, INJECT CONTENTS OF 1 PEN (0.5ML) SUBCUTANEOUSLY ONCE A WEEK. ROTATE INJECTION SITES, # 2 mL, 0 Refills, Maintenance, 03/19/25 1:14:00 PM EDT, [facility], 158, cm, 12/27/24 12:53:00 EDT, Height, 137.2, kg, 03/16/24 11:04:00 EDT, Dry Weight 03/19/20 Active Blood-Glucose Sensor (FreeStyle Johann 3 Plus Sensor) Device freestyle 3 CGM sensors, See Instructions, # 2 each, Refills 11, Tot. Refills 11, Maintenance, use to check glucose as directed, replace sensor every 14 days, 06/07/24 8:40:00 AM EDT, Supply, 158, cm, 03/16/24 11:07:00 EDT, Height, 137.2, kg, 03/16/24 11:04:00 EDT, Dry Weight 06/07/20 Active ezetimibe (Zetia) 10 mg tablet See Instructions, TAKE 1 TABLET EVERY DAY, # 90 tablet, 3 Refills, Maintenance, 12/14/24 12:25:00 PM EDT, [facility] Mail Delivery, 158, cm, 08/29/24 15:02:00 EST, Height, 137.2, kg, 03/16/24 11:04:00 EDT, Dry Weight 10/19/19 25 Active Active Problems Patient Care Coordination No te Formatting of this note migh t be different from the original. Acute pain contract [place] 05/25/2019 TFD Problem Noted Date Diagnosed Date [...] congestive heart failure 10/09 Overview (12/31/2021): See [facility] discharge notes from 10/05/19. Skin [...] of the most recent lab results in [facility]. The most recent laboratory results were [...] in. She sees a physical therapist in [place]. Assessment & Plan (09/06/2017 9:14 AM EST): Proceed with corticosteroid injection. She was given exercises to start to do. Will then set up for x-ray today. See if this improves overall. Abnormal gallbladder ultrasound 07/11/2017 Abnormal ultrasound of liver 07/11/2017 Fatty liver 07/11/2017 Rheumatoid arthritis 06/28/2017 Assessment & Plan (08/24/2020 10:26 AM EST): We will discuss with her administration specialist to see what my options are in [...] and I will send this to her administration specialist. If there is a determination for surgery [...] decision with her, primary care physician and administration specialist all about best options for treatment. Explained [...] Medrol for a week. Add pain medicine [place] 5/325 1 tablet twice daily as needed [...] include serious infections, COPD exacerbations, pneumonia, lymphoma. [facility]ENT [facility] Biologic agents may [...] condition. If you are noted to have [place] Heart Failure Classification 3 or 4, tell [...] be determined based on your insurance, financial administrative assistant if applicable or pharmacy industry copayment cards [...] or from patient assistance, it is the patient s responsibility to remain current with this [...] any of your other providers or your clinical biostatistician. Side effects discussed at length to include but not limited to liver function abnormalities, WBC changes, lung fibrosis, oral ulcers, hair loss and flu like syndrome. Acute lung toxicity and acute toxicity causing decreased blood counts and pancytopenia. Risk of lymphoma is increased with fpc use. Patient should limit, and preferably, abstain [...] Encounters Date Type Department Care Team Description 04/08/2025 2:00 PM EDT TH Visit (TeleHealth) Sleep Center at [facility] [address] [place] [address] Katherine Kamara, ANTOINE JENNIFFER treated with BiPAP from Last 3 Months Family History Medical [...] = 0.6 oz pur e alcohol) Comments No Sex and Gender Information Value Date Recorded Sex Assigned at Not on file Legal Sex Female 6:40 AM EST Gender Identity Female 03/13/2020 8:50 PM EDT Sexual Orientation Not on file Last Filed Vital Signs Vital Sign Reading Time Taken Comments Blood Pressure 128/58 03/30/2024 10:28 AM EDT Pulse 57 03/30/2024 10:28 AM EDT Temperature 36.8 C (98.2 F) 05/22/2020 8:28 PM EDT Respiratory Rate 15 10/19/2019 2:18 PM EST Oxygen Saturation 93% 03/30/2024 10:28 AM EDT Inhaled Oxygen Concentration - - Weight 129.3 kg (285 lb) 04/08/2025 9:33 AM EDT Height 157.5 cm (5' 2 ) 04/08/2025 9:33 AM EDT Body Mass Index 52.13 04/08/2025 9:33 AM EDT Plan of Treatment Health Maintenance Due Date Last Done Comments CT Colonography 1950 FIT DNA 1950 FIT 1950 Sigmoidoscopy 1950 DM Hemoglobin A1c 02/26/1962 DM Ophthalmology Exam 02/26/1962 DM Urine Microalbumin yearly 02/26/1962 [...] o f 1 - Influenza standard series) 05/27/2025 Sigmoidoscopy (10 year) with FIT yearly 03/26/2029 03/26/2019, 03/26/2019 Bone Density Scan 02/09/2034 02/09/2019 Diabetes Screening (HgbA1C o r Glucose) Discontinued 10/19/2019, 10/18/2019, 10/17/2019, Additional history exists Procedures Procedure Name Priority Date/Time Associated Diagnosis Comments HC VENIPUNCTURE Routine 03/20/2021 11:04 AM EDT Asymmetrical sensorineural hearing loss BASIC METABOLIC PANEL Routine 10/19/2019 4:55 AM EST COLONOSCOPY Routine 03/26/2019 6:43 AM EDT DXA CENTRAL SPINE, HIP, AND/OR WHOLE BODY (GENERIC) Routine 02/09/2019 2:22 PM EDT from Last 3 Months or Most Recently Relevant to Health Maintenance Results * (ABNORMAL) Creatinine (03/20/2021 11:04 AM EDT) Creatinine 2.06(H) 0.70 - 1.20 mg/dL [facility] Est Glomerular Filtration Rate 24(L) >=60 mL/min/1. 73 m [facility] Comment: This patient s estimated glomerular filtration rate (eGFR) is [...] Narrative Resulting Agency Comment Spec In Lab us Barrett Jay MD CHEMISTRY ORDERABLES Final R esult [facility] [address] [place] [address] * (ABNORMAL) Basic Metabolic Panel (non-fasting) (10/19/2019 4:55 AM EST) Glucose 169 65 - 199 mg/dL [facility] Comment:Diabetes: >=200 mg/d L plus symptoms Blood Urea Nitrogen 77(H) 8 - 18 mg/dL [facility] Creatinine 2.88(H) 0.70 - 1.20 mg/dL [facility] Sodium 139 135 - 145 mmol/L [facility] Potassium 3.3(L) 3.5 - 5.0 mmol/L [facility] Comment: Please note: Patients with WBC >100,000 may have falsely elevated Potassium levels. For accurate Potassium quantification in these patients send serum separator tube (gold top) for subsequent determinations. Contact the Clinical Chemistry Laboratory if there are any questions. Chloride 90(L) 98 - 107 mmol/L [facility] Carbon Dioxide 30 22 - 31 mmol/L [facility] Anion Gap 19(H) 5 - 15 mmol/L [facility] Calcium 10.2 8.5 - 10.5 mg/dL [facility] Est Glomerular Filtration Rate 16(L) >=60 mL/min/1. 73 m [facility] Comment: The eGFR was calculated using the CKD-EPI equation. As with all creatinine based estimates of kidney function, eGFR values calculated with the CKD-EPI equation are not accurate in patients with acute kidney failure, extremes of body mass or the acutely ill. http://[employer]/DHMCnkf eGFR 19(L) >=60 mL/min/1. 73 m [facility] Comment: The eGFR was calculated using the CKD-EPI equation. As with all creatinine based estimates of kidney function, eGFR values calculated with the CKD-EPI equation are not accurate in patients with acute kidney failure, extremes of body mass or the acutely ill. http://[employer]/DHMCnkf Blood specimen (specimen) 10/19/2019 4:55 AM EST 10/19/2019 5:40 AM EST Narrative Resulting Agency Comment Spec In Lab us Dara Carreon MD CHEMISTRY ORDERABLES Final Resu lt [facility] [address] [place] [address] * COLONOSCOPY (03/26/2019 6:43 AM EDT) COLONOSCOPY Patient Name: Tiffanie Stern Procedure Date: 03/26/2019 6:43 AM Attending MD: Lucho Ohara MD Date of : 1950 Order #: [id number] Age: 69 Instrument Name: [id number] Procedure: Colonoscopy Indications: Iron deficiency anemia Providers: Lucho Ohara MD, Ama Nicholosn MD: Medicines: Monitored Anesthesia Care Complications: No immediate complications. Procedure: Pre-Anesthesia Assessment: - Prior to the procedure, a History and Physical was performed, and patient medications, allergies and sensitivities were reviewed. The patient's tolerance of previous anesthesia was reviewed. The procedure, indications, benefits, risks and alternatives were explained to the patient. Specifically discussed were potential complications including, but not limited to, bleeding, perforation, infection, missing a cancer, and adverse medication reactions. The patient was placed in the left lateral decubitus position, and a digital rectal exam was performed. The Colonoscope was inserted in the anus and under direct visualization, advanced to the cecum, identified by appendiceal orifice and ileocecal valve. Careful inspection was made as the colonoscope was withdrawn. The colonoscopy was performed without difficulty. The patient tolerated the procedure well. The quality of the bowel preparation was good. Scope Withdrawal Time: 0 hours 10 minutes 20 seconds Findings: The perianal and digital rectal examinations were normal. Two sessile polyps were found in the transverse colon. The polyps were 2 to 3 mm in size. These polyps were removed with a cold biopsy forceps. Resection and retrieval were complete. Multiple small-mouthed diverticula were found in the entire colon. Internal hemorrhoids were found during retroflexion. The hemorrhoids were small. The exam was otherwise without abnormality. Impression: - Two 2 to 3 mm polyps in the transverse colon, removed with a cold biopsy forceps. Resected and retrieved. - Diverticulosis in the entire examined colon. - Internal hemorrhoids. - The examination was otherwise normal. Recommendation: - Discharge patient to home. - High fiber diet. - Continue present medications. - Await pathology results. - Repeat colonoscopy in 5 years for surveillance based on pathology results. Procedure Code(s): --- Professional --- 81333, Colonoscopy, flexible; with biopsy, single or multiple Diagnosis Code(s): --- Professional --- D12.3, Benign neoplasm of transverse colon (hepatic flexure or splenic flexure) K64.8, Other hemorrhoids D50.9, Iron deficiency anemia, unspecified K57.30, Diverticulosis of large intestine without perforation or abscess without bleeding --- Technical --- D12.3, Benign neoplasm of transverse colon (hepatic flexure or splenic flexure) K64.8, Other hemorrhoids D50.9, Iron deficiency anemia, unspecified K57.30, Diverticulosis of large intestine without perforation or abscess without bleeding CPT copyright 2017 [employer]. All rights reserved. The codes documented in this report are preliminary and upon library science instructor review may be revised to meet current compliance requirements. Lucho Ohara MD ___ Lucho Ohara MD 03/26/2019 8:13:36 AM This report has been signed electronically. Number of Addenda: 0 PROVATION 03/26/2019 6:43 AM EDT us Unknown GENERAL SURGICAL ORDERABLES Yue l Result PROVATION * DXA Central-Spine, Hip, And/Or Whole [...] this report, please contact the number below. Electronically signed by: CARSON WALTERS On License Of [facility] ([phone]), at 02/09/2019 2:32 PM Narrative 02/09/2019 2:37 PM EDT EXAMINATION: BD Procedure (DEXA) CLINICAL HISTORY: screening for osteoporosis;Z13.820 Encounter for screening for osteoporosis TECHNIQUE: Scans were acquired at the lumbar spine, left hip. COMPARISON: 12/22/2006 FINDINGS: COMPARISON: 12/22/2006 DISCUSSION: Bone density scanning of the left hip and lumbar spine was performed with the [employer] Discovery C DEXA Scanner. At the left [...] hip and lumbar spine wasperformed with the [employer] Discovery C DEXA Scanner. At the left [...] this report, please contact the number below. Electronically signed by: CHUN VERGARA [facility]([phone]), at 02/09/2019 2:32 PM Neto NIXON IMG DEXA ORDERABLES Final Result from Last 3 Months or Most Recently Relevant to Health Maintenance Insurance [employer] SUPPLEMENT MEDICARE [place] [id number] Advance Directives Documents on File Type Date Recorded Patient Teen Counselor Expl anation Advance Directives and Livin g Will 11/24/2010 4:05 PM * Full Code (Latest Code Status on File) Date Activated Date Inactivated Comments 10/12/2019 4:08 PM 10/19/2019 5:45 PM Question Answer Comments Does patient have capacity to make decision: Yes Care Teams Boilermaker Welder Relationship Specialty Start Date End Date Benito Saucedo MD [address] [place] [address] PCP - General 03/14/20
--- OUTSIDE RECORDS SUMMARY | 2025-04-16 12:06 | XMS_ITS ---
[facility] Name [facility] Organization Unknown Encounters Encounter Type Encounter Reason Primary Diagnosis Location Date Ambulatory hyperkalemia [facility] 08/27/2021 Care Team Organization Name Specialty Phone Email Start Date End [facility] 08/29/2021 05/14/2024 [facility] 08/27/2021 08/27/2021
--- OUTSIDE RECORDS SUMMARY | 2025-04-16 12:06 | XMS_ITS | Clinical Summary ---
Author Organization [facility] Address [address] [place] [address] Phone Care Team Providers Care Welder Apprentice Gas Name Role Phone Benito Saucedo MD Primary Care Provider [phone] Allergies Active Allergy Reactions Criticality Noted Date [...] kidney disease, stage 4 (severe) 10/23/2019 10/14/2021 M ni re's disease 10/23/2019 07/14/2021 Motion sickness 10/23/2019 07/14/2021 Renal stone 10/23/2019 07/14/2021 Transient cerebral ischemia 10/23/2019 07/14/2021 Vertigo 10/23/2019 07/14/2021 Acute nontraumatic kidney injury 10/12/2019 07/14/2021 Diastolic heart failure 10/09/201906/26 Overview (02/29/2020): See [facility] discharge notes from 10/05/19. Lumbar [...] Fatty liver 07/11/2017 07/14/2021 Rheumatoid arthritis 06/28/2017 Overview (07/21/2020): Last Assessment & Plan: At [...] and I will send this to her offset platemaker. If there is a determination for surgery [...] decision with her, primary care physician and offset platemaker all about best options for treatment. Explained this in detail. Rheumatoid arthritis 06/28/2017 021 Overview (11/18/2020): Last Assessment & Plan: We will discuss with her offset platemaker to see what my options are in [...] discussed. Sciatica 02/20/2016 10/14/2021 Overview (10/14/2021): Left Immunizations Immunization Administration Dates Next Due Influenza Whole 08/30/2019, 8,07/28/2017,2015 Influenza, Quadrivalent, Pre servative Free 08/30/2019 Moderna SARS-COV-2 07/11/2023,,07/28/2021,2020,10/30/2020 Pneumococcal Conjugate 13-Valent 11/09/2019,08/27 Shingrix 07/18/2020,12/22/2012 Td, [...] Visit [facility] [address] [place] [id number] Garima Rodriguez, DO [address] [place] [address] Health Maintenance Due Date Last Done Comments Breast Cancer Screening 1950 Colorectal Cancer Screening: Annual FOBT 02/26/2001 Colorectal Cancer Screening: Colonoscopy 02/26/2001 Colorectal Cancer Screening: Sigmoidoscopy 02/26/2001 Diabetes: Ophthalmology Exam 10/23/2019 Diabetes: Pedal Pulse Checked 10/23/2019 Diabetes: Sensory Foot Exam 10/23/2019 Diabetes: Visual Foot Exam 10/23/2019 Pneumococcal Vaccine: 50+ Years (2 of 2 - PPSV23, PCV20, or PCV21) 01/04/2020 11/09/2019, 09/22/2018 Diabetes: Hemoglobin A1C 04/28/2021 021, 07/31/2019, 03/12/2019 Influenza Vaccine (#1) 2025 9, 08/30/2019, 08/24/2018, Additional history exists Pneumococcal Vaccine: Peds (0 to 5 Years) and At-Risk Patients (6 to 49 Years) Discontinued 11/09/2019, 09/22/2018 Hepatitis B Vaccine Aged Out No longe r eligible based on patient's age to complete this topic Procedures Procedure Name Priority Date/Time Associated Diagnosis Comments EXT RESULT ENTRY Routine 01/26/2021 from Last 3 Months or Most Recently Relevant to Health Maintenance Results * (ABNORMAL) EXT RESULT ENTRY (01/26/2021) Sodium 138 137 - 147 Potassium 4.3 3.4 - 5.5 Chloride 91(A) 99 - 108 Bicarbonate (CO2) 29 22 - 30 mmol/L Anion Gap 18 <=30 MMOL/L Glucose 234(A) 60 - 200 BUN 57(A) 4 - 21 mg/dL Creatinine 2.50(A) 0.50 - 1.10 mg/dL Calcium 10.2 8.7 - 10.7 mg/dL eGFR Non-Afr [place] 19 Magnesium 2.4 1.6 - 2.4 Hemoglobin A1C 8.2(A) 4.0 - 6.0 01/26/2021 Historical Provider LAB BLOOD ORDERABLES Yue l Result from Last 3 Months or Most Recently Relevant to Health Maintenance Insurance Medicare [facility] Medicare [facility] Care Teams Welder Apprentice Gas Relationship Specialty Start Date End Date Benito Saucedo MD [address] [place] [id number] PCP - General Family Medicine 11/18/20
--- OUTSIDE RECORDS SUMMARY | 2025-04-16 12:06 | XMS_ITS | Encounter Summary ---
Author Organization [facility] Address [address] [place] [address] Phone Care Team Providers Care Technical Writer And Editor Name Role Phone Neto Tolliver Primary Care Provider [phone] Benito Saucedo MD Primary Care Provider [phone] Encounter Details Date Type Department Care Team (Late st Contact Info) Description 07/22/2016 Procedure Pass BWF Periop 6th floor [address] [place] [address] Social History Tobacco Use Types Packs/Day Years Used Date Smoking Tobacco: Former Smokeless Tobacco: Never Alcohol Use Standard Drinks/Week Comments No 0 (1 standard drink = 0.6 oz pur e alcohol) Comments Unknown Sex and Gender Information Value Date Recorded Sex Assigned at Not on file Legal Sex Female 12:13 PM EST Gender Identity Female 06/20/2020 11:26 AM EDT Sexual Orientation Straight 06/20/2020 11 :26 AM EDT documented as of this encounter Plan of Treatment Not on file documented as of this encounter Visit Diagnoses Not on filedocumented in this encounter Care Teams Technical Writer And Editor Relationship Specialty Start Date End Date Neto Tolliver PA [address] [place] [address] PCP - General 12/01/15 05/11/20 Benito Saucedo MD [address] [place] [address] PCP - General Family Medicine 05/12/20 documented as of this encounter Additional Source Comments The information contained in this document represents components of the legal health record. It is not the complete legal health record.[facility]
--- OUTSIDE RECORDS SUMMARY | 2025-04-16 12:06 | XMS_ITS | Clinical Summary ---
Author Organization [facility] Address [address] [place] [address] Care Team Providers Care Manufacturing Production Manager Name Role Phone Unavailable Primary Care [...] topic Insurance MEDICARE PART A & B [facility]
== END 2025-04-16 11:19 | disposition home or self-care (01) ==
LOC: HO.PMC 10:49
PROVIDERS: PCP Family Medicine; Visit Provider Nurse Practitioner Family
DX: M54.50 Low back pain, unspecified (principal); G89.29 Other chronic pain; M47.816 Spondylosis without myelopathy or radiculopathy, lumbar region; M54.51 Vertebrogenic low back pain; E66.01 Morbid (severe) obesity due to excess calories; Z68.43 Body mass index [BMI] 50.0-59.9, adult; M51.26 Other intervertebral disc displacement, lumbar region; M48.061 Spinal stenosis, lumbar region without neurogenic claudication
CPT/HCPCS: 99214